=== PATIENT | male | born 1950 | race Caucasian/White ===

== ENCOUNTER → 2018-02-26 01:04 | Outpatient (CLI) | payer MEDICARE, OTHER, SELFPAY ==
--- NOTE | 2018-02-26 10:15 | MERGE_ITS ---
*[facility]* *[facility]* [address] [place] [address] Date of study: 02/26/2018 Transthoracic Echocardiography M-mode, complete 2D, complete spectral Doppler, and color Doppler *STUDY CONCLUSIONS* Summary: 1. Left ventricle: Wall thickness was increased in a pattern of moderate LVH. Systolic function was hyperdynamic. The estimated ejection fraction was 65-70%. Findings consistent with diastolic dysfunction. Doppler parameters are consistent with high ventricular filling pressure. 2. Mitral valve: Moderately to severely calcified annulus. Severely thickened, severely calcified leaflets posterior. There was moderate regurgitation. Cannot rule out AMVL ruptured chord. 3. Left atrium: The atrium was moderately dilated. 4. Right ventricle: The cavity size was normal. Wall thickness was normal. Systolic function was normal. 5. Atrial septum: No defect or patent foramen ovale was identified. 6. Pulmonary arteries: Pulmonary systolic pressure was in the range of 35mm Hg to 45mm Hg. 7. Inferior vena cava: Poorly visualized. *PATIENT PRESENTATION* Height: 180.3cm ((71in) ) S/D Pressure: 144 / 71 Weight: 122.5kg ((269.4lb) ) BSA: 2.52m^2 Test start time: 10:24 AM. Test stop time: 11:30 AM. PERFORMING Unknown ORDERING Parker Carmen REFERRING Parker Carmen PERFORMING [facility] PROSTHETICS LAB TECHNICIAN RT Echo Blevins)([place])TOD *PROCEDURE DATA* Procedure information: The patient was identified by two identifiers. This study was interpreted by [facility]. Pertinent images and digital data are archived for permanent storage and are available for subsequent review. Comparison was made to the study of 02/19/2017. Study status: Routine. Transthoracic echocardiography. M-mode, complete 2D, complete spectral Doppler, and color Doppler. A Transthoracic Echocardiogram was performed. Scanning was performed from the parasternal, apical, subcostal, and suprasternal notch acoustic windows. Images were obtained using an [id number] cardiac ultrasound machine. Image quality was adequate. Study completion: The patient tolerated the procedure well. History: PMH: Mitral regurg. 1 year follow up. *CARDIAC ANATOMY* Left ventricle: Wall thickness was increased in a pattern of moderate LVH. Systolic function was hyperdynamic. The estimated ejection fraction was 65-70%. The tissue Doppler parameters were abnormal. Findings consistent with diastolic dysfunction. Doppler parameters are consistent with high ventricular filling pressure. Aortic valve: Focal calcification non coronary cusp. Trileaflet. Doppler: There was no stenosis. There was no significant regurgitation. VTI ratio of LVOT to aortic valve: 0.72. Valve area (VTI): 3.2cm^2. Indexed valve area (VTI): 1.3cm^2/m^2. Peak velocity ratio of LVOT to aortic valve: 0.61. Valve area (Vmax): 2.7cm^2. Indexed valve area (Vmax): 1.1cm^2/m^2. Mean velocity ratio of LVOT to aortic valve: 0.55. Valve area (Vmean): 2.4cm^2. Indexed valve area (Vmean): 1cm^2/m^2. Mean gradient (S): 11.7mm Hg. Peak gradient (S): 25.5mm Hg. Aorta: Aortic root: The aortic root was at upper normal limits. Ascending aorta: The ascending aorta was mildly dilated. Mitral valve: Moderately to severely calcified annulus. Severely thickened, severely calcified leaflets posterior. Doppler: There was no evidence for stenosis. There was moderate regurgitation. Valve area by pressure half-time: 2.9cm^2. Indexed valve area by pressure half-time: 1.1cm^2/m^2. Peak gradient (D): 4.6mm Hg. Left atrium: The atrium was moderately dilated. Atrial septum: No defect or patent foramen ovale was identified. Right ventricle: The cavity size was normal. Wall thickness was normal. Systolic function was normal. Pulmonic valve: Doppler: There was no evidence for stenosis. There was mild regurgitation. Peak gradient (S): 6.2mm Hg. Tricuspid valve: Doppler: There was mild regurgitation. Pulmonary artery: Poorly visualized. Pulmonary systolic pressure was in the range of 35mm Hg to 45mm Hg. Right atrium: The atrium was normal in size. Pericardium: There was no pericardial effusion. Systemic veins: Inferior vena cava: Poorly visualized. Baseline ECG: Normal sinus rhythm. Measurements Left ventricle Value 09/10/2017 Reference LV ID, ED, PLAX 5.8 cm 6.0 3.5 - 6.0 LV ID, ES, PLAX 3.5 cm 3.4 2.1 - 4.0 LV PW thickness, ED, PLAX 1.3 cm 1.2 LV end-diastolic volume, 99 ml 83 1-p A2C LV ejection fraction, 1-p 72 % 70 A2C LV end-diastolic volume, 112 ml 123 1-p A4C LV ejection fraction, 1-p 67 % 74 A4C LV e', lateral 0.071 m/sec 0.04 LV E/e', lateral 15 20 LV e', medial 0.075 m/sec 0.053 LV E/e', medial 14 15 LV e', average 0.073 m/sec 0.046 LV E/e', average 15 17 Ventricular septum Value 09/10/2017 Reference IVS thickness, ED, PLAX 1.3 cm 1.4 LVOT Value 09/10/2017 Reference LVOT ID, A-P 2.4 cm 2.4 LVOT area 4.4 cm^2 4.5 LVOT peak velocity, S 1.53 m/sec 1.24 LVOT mean velocity, S 0.87 m/sec 0.89 LVOT VTI, S 32.8 cm 26.3 LVOT peak gradient, S 9.4 mm Hg 6.1 LVOT mean gradient, S 3.8 mm Hg 3.5 Stroke volume (SV), LVOT 144 ml 117 DP Stroke index (SV/bsa), 57 ml/m^2 47 LVOT DP Aortic valve Value 09/10/2017 Reference Aortic valve peak 2.5 m/sec 2.2 velocity, S Aortic valve mean 1.59 m/sec 1.4 velocity, S Aortic valve VTI, S 45.5 cm 36.4 Aortic mean gradient, S 11.7 mm Hg 9 Aortic peak gradient, S 25.5 mm Hg 19.7 VTI ratio, LVOT/AV 0.72 0.72 Aortic valve area, VTI 3.2 cm^2 3.2 Velocity ratio, peak, 0.61 0.56 LVOT/AV Aortic valve area, peak 2.7 cm^2 2.5 velocity Velocity ratio, mean, 0.55 0.63 LVOT/AV Aortic valve area, mean 2.4 cm^2 2.8 velocity Aortic valve area/bsa, 1 cm^2/m^2 1.1 mean velocity Aorta Value 09/10/2017 Reference Aortic root ID, ED 3.6 cm 3.6 Ascending aorta ID, A-P, S 3.7 cm 3.7 RVOT Value 09/10/2017 Reference RVOT VTI, S 17.5 cm Left atrium Value 09/10/2017 Reference LA area, ES, A4C (H) 36.7 cm^2 33.8 8.8 - 23.4 LA area, ES, A2C 31 cm^2 24 LA volume/bsa, ES, 1-p A4C 68 ml/m^2 62 LA volume, ES, 2-p 129 ml 105 LA volume/bsa, ES, 2-p 51 ml/m^2 42 Mitral valve Value 09/10/2017 Reference Mitral E-wave peak 1.08 m/sec 0.8 velocity Mitral A-wave peak 1.28 m/sec 1.25 velocity Mitral deceleration time (H) 262 ms 349 150 - 230 Mitral pressure half-time 76 ms 101 Mitral peak gradient, D 4.6 mm Hg 2.6 Mitral E/A ratio, peak 0.84 0.64 Mitral valve area, PHT, DP 2.9 cm^2 2.2 Tricuspid valve Value 09/10/2017 Reference Tricuspid regurg peak 3.1 m/sec 3.1 velocity Tricuspid peak RV-RA 38.9 mm Hg 38.8 gradient Right atrium Value 09/10/2017 Reference RA area, ES, A4C 16.9 cm^2 16.1 8.3 - 19.5 Pulmonic valve Value 09/10/2017 Reference Pulmonic peak gradient, S 6.2 mm Hg Legend: (L) and (H) althea values outside specified reference range. I have personally reviewed the images and have reviewed and edited the reported findings. Electronically signed by Lul Keith MD 02/26/2018 18:54
== END ==
PROVIDERS: PCP Emergency Medicine; Visit Provider Internal Medicine Cardiovascular Disease
DX: I34.0 Nonrheumatic mitral (valve) insufficiency (principal); I51.7 Cardiomegaly; I51.89 Other ill-defined heart diseases
CPT/HCPCS: 93306

== ENCOUNTER → 2018-03-05 13:09 | Outpatient (CLI) | payer MEDICARE, OTHER, SELFPAY | PROVIDERS: PCP Emergency Medicine; Visit Provider Internal Medicine Cardiovascular Disease | DX: I34.0 Nonrheumatic mitral (valve) insufficiency (principal); I10 Essential (primary) hypertension; I26.99 Other pulmonary embolism without acute cor pulmonale; I27.20 Pulmonary hypertension, unspecified | CPT/HCPCS: 99214 ==

== ENCOUNTER 2018-03-11 10:34 | Day surgery (SDC) | payer MEDICARE, OTHER, SELFPAY ==
[2018-03-11 11:06] VITALS: BP 138/83; PULSE 68; RESP 16; TEMP 36.6; O2SAT 96
[2018-03-11 11:13] VITALS: BP 138/83; PULSE 68; RESP 16; TEMP 36.6; O2SAT 96
[2018-03-11 11:15] VITALS: BP 138/83; PULSE 68; RESP 16; TEMP 36.6; O2SAT 96
[2018-03-11] MEDS: Lactated Ringers 1,000 ML 30 ML IV (11:25)
--- NOTE | 2018-03-11 13:25 | W.PM.DSUDISC ---
Discharge Plan Discharge Details Reason For Visit: PERSONAL HX OF COLORECTAL CA Attending Provider: Eitan Jin Primary Care Provider: Alexis Lo Disposition Patient Disposition: HOME Condition: Good Home Meds and New Rx's Prescriptions: Continue CENTRUM SILVER TABLET 1 EACH tablet 1 tab PO DAILY RF: 0 tadalafil [Cialis] 10 MG tablet 10 mg PO PRN Qty: 12 RF: 12 allopurinol 100 MG tablet 100 mg PO DAILY Qty: 90 RF: 3 losartan 100 MG tablet 100 mg PO DAILY Qty: 90 RF: 3 amlodipine 5 MG tablet 5 mg PO DAILY Qty: 90 RF: 4 apixaban [Eliquis] 5 MG tablet 5 mg PO BID Qty: 180 RF: 6 Discontinued polyethylene glycol 3350 [Miralax] 17 GM powder in packet 17 g PO DAILY Qty: 255 RF: 0 bisacodyl [Dulcolax (bisacodyl)] 5 MG tablet,delayed release (DR/EC) 5 mg PO ONCE Qty: 4 RF: 0 Discharge Instructions Instructions: Colonoscopy (DC) Activity:: Activity as Tolerated Diet:: Normal Diet Discharge Orders Discharge Orders: Discharge Order (Routine); Ordered 03/11/18 Ordered By: Eitan Jin Discharge Data Discharge Comment: Jolynn wang
[2018-03-11 13:57] VITALS: BP 113/71; PULSE 53; RESP 16; TEMP 36.3; O2SAT 95
--- NOTE | 2018-03-11 16:16 | W.COLOREPORT ---
Date of service: 03/11/18 Time of Service: 16:16 Colonoscopy Report Date of procedure: 03/11/18 Pre-op diagnosis general: Personal history of rectal cancer Post-op diagnosis procedure note: other (1. Pandiverticulosis 2. Grade II Hemorrhoids) Procedure: Colonoscopy to the cecum Surgeon: Eitan Jin Anesthesia proc note operative: MAC (Sony Villanueva CRNA, ASA 2, Mallampati class II) Estimated blood loss (mL): 0 Pathology: none sent Complications: None Disposition: same day Indications: 67-year-old gentleman presenting for colorectal cancer screening with a personal history of rectal cancer. He has been asymptomatic since his last colonoscopy. He has no family history of colorectal cancer. The procedure has been reviewed with him, and the risks have been discussed. All his questions have been answered to his satisfaction. Consents been obtained to proceed with colonoscopy Prep: Miralax/Dulcolax (Quality Good) Findings: In examining the colon from cecum to anus, the patient was again noted to have diverticulosis throughout the colon and grade 2 hemorrhoids. No other abnormalities were noted. Procedure Description: The patient was seen in the day surgery waiting area. His identification was confirmed, and procedure check. He was then brought to the procedure room. Monitoring for telemetry, blood pressure, oxygen saturation, and end tidal CO2 monitoring were applied. An appropriate time out was performed to confirm, identification, allergies, medication, procedure, was performed. Sedation was titrated for affect by the DEFENSE ANALYST; Once adequate sedation was achieved, I performed a inspection of the external perineum, and a digitial rectal examination. No significant external abnormalities were noted. On digital rectal examination, there was no blood, no masses, good rectal tone, and a normal prostate. I advanced the colonoscope from the anus to the cecum under direct visualization. The cecum was identified by the ileal-cecal valve, and the appendiceal orifice. The scope was then withdrawn in circumferential manner from the cecum to the rectum. Again pandiverticulosis was noted in the colon; no other abnormlaites were noted. The scope was then withdrawn into the rectum, and retroflexed. Grade II hemorrhoids were noted at the anorectal junction. The scope was then withdrawn, terminating the procedure. There were no complications during the procedure, and the patient tolerated the procedure well. He was returned to the day surgery recovery area in good condition. Plan: Will continue with routine screening for colorectal cancer according to current consensus guidelines, which is currently 3 years.
--- NOTE | 2018-03-11 16:27 | COLE_ITS ---
Date of service: 03/11/18 Time of Service: 16:16 Colonoscopy Report Date of procedure: 03/11/18 Pre-op diagnosis general: Personal history of rectal cancer Post-op diagnosis procedure note: other (1. Pandiverticulosis 2. Grade II Hemorrhoids) Procedure: Colonoscopy to the cecum Surgeon: Eitan Jin Anesthesia proc note operative: MAC (Sony Villanueva CRNA, ASA 2, Mallampati class II) Estimated blood loss (mL): 0 Pathology: none sent Complications: None Disposition: same day Indications: 67-year-old gentleman presenting for colorectal cancer screening with a personal history of rectal cancer. He has been asymptomatic since his last colonoscopy. He has no family history of colorectal cancer. The procedure has been reviewed with him, and the risks have been discussed. All his questions have been answered to his satisfaction. Consents been obtained to proceed with colonoscopy Prep: Miralax/Dulcolax (Quality Good) Findings: In examining the colon from cecum to anus, the patient was again noted to have diverticulosis throughout the colon and grade 2 hemorrhoids. No other abnormalities were noted. Procedure Description: The patient was seen in the day surgery waiting area. His identification was confirmed, and procedure check. He was then brought to the procedure room. Monitoring for telemetry, blood pressure, oxygen saturation , and end tidal CO2 monitoring were applied. An appropriate time out was performed to confirm, identification, allergies, medication, procedure, was performed. Sedation was titrated for affect by the CALCINE FURNACE TENDER; Once adequate sedation was achieved, I performed a inspection of the external perineum, and a digitial rectal examination. No significant external abnormalities were noted. On digital rectal examination, there was no blood, no masses, good rectal tone, and a normal prostate. I advanced the colonoscope from the anus to the cecum under direct visualization. The cecum was identified by the ileal-cecal valve, and the appendiceal orifice. The scope was then withdrawn in circumferential manner from the cecum to the rectum. Again pandiverticulosis was noted in the colon; no other abnormlaites were noted. The scope was then withdrawn into the rectum, and retroflexed. Grade II hemorrhoids were noted at the anorectal junction. The scope was then withdrawn, terminating the procedure. There were no complications during the procedure, and the patient tolerated the procedure well. He was returned to the day surgery recovery area in good condition. Plan: Will continue with routine screening for colorectal cancer according to current consensus guidelines, which is currently 3 years.
== END 2018-03-11 14:21 | disposition home or self-care (01) ==
PROVIDERS: PCP Emergency Medicine; Visit Provider Surgery
PROC: 0DJD8ZZ Inspection of Lower Intestinal Tract, Via Natural or Artificial Opening Endoscopic (ICD-10-PCS; CPT 45378; principal; 2018-03-11 12:00)
DX: Z12.11 Encounter for screening for malignant neoplasm of colon (principal); Z85.048 Personal history of other malignant neoplasm of rectum, rectosigmoid junction, and anus; K57.30 Diverticulosis of large intestine without perforation or abscess without bleeding; K64.1 Second degree hemorrhoids
CPT/HCPCS: G0105; G0121

== ENCOUNTER → 2018-03-11 11:36 | Outpatient (BNVA) | payer MEDICARE, OTHER, SELFPAY | PROVIDERS: PCP Emergency Medicine; Visit Provider Surgery | DX: Z12.11 Encounter for screening for malignant neoplasm of colon (principal); Z85.048 Personal history of other malignant neoplasm of rectum, rectosigmoid junction, and anus; K57.30 Diverticulosis of large intestine without perforation or abscess without bleeding; K64.1 Second degree hemorrhoids | CPT/HCPCS: G0105 ==

== ENCOUNTER 2018-04-14 09:00 | Outpatient (CLI) | payer MEDICARE, OTHER, SELFPAY ==
[2018-04-15 12:07] LABS: CEA <0.5 ng/ml
== END 2018-04-14 09:20 ==
PROVIDERS: PCP Emergency Medicine; Visit Provider Internal Medicine Hematology & Oncology
DX: C20 Malignant neoplasm of rectum (principal)
CPT/HCPCS: 36415; 82378

== ENCOUNTER 2018-09-16 00:22 | Outpatient (CLI) | payer MEDICARE, OTHER, SELFPAY ==
--- NOTE | 2018-09-16 10:20 | MERGE_ITS ---
*[facility]* *[facility]* [address] [place] [address] Date of study: 09/16/2018 Transthoracic Echocardiography M-mode, complete 2D, complete spectral Doppler, and color Doppler *STUDY CONCLUSIONS* Summary: 1. Left ventricle: The cavity size was normal. Wall thickness was increased in a pattern of mild LVH. Systolic function was normal. The estimated ejection fraction was 60-65%. Wall motion was normal; there were no regional wall motion abnormalities. 2. Mitral valve: Severely calcified annulus. Mild thickening, consistent with myxomatous proliferation. Prolapse, involving the posterior leaflet. There was moderate to severe regurgitation directed eccentrically. 3. Left atrium: The atrium was moderately dilated. 4. Right ventricle: The cavity size was normal. Wall thickness was normal. Systolic function was normal. 5. Pulmonary arteries: Pulmonary systolic pressure was increased, in the range of 35mm Hg to 40mm Hg. *PATIENT PRESENTATION* Height: 180.3cm ((71in) ) S/D Pressure: 136 / 77 Weight: 115.7kg ((254.5lb) ) BSA: 2.45m^2 Test start time: 10:30 AM. Test stop time: 11:45 AM. CONSULTING Alexis Lo PERFORMING Unknown ORDERING Parker Carmen REFERRING Parker Carmen PERFORMING [facility] ORACLE DATABASE ADMINISTRATOR RT Gen (R)([place])TOD *PROCEDURE DATA* Procedure information: The patient was identified by two identifiers. This study was interpreted by [facility]. Pertinent images and digital data are archived for permanent storage and are available for subsequent review. Comparison was made to the study of 02/26/2018. Study status: Routine. Transthoracic echocardiography. M-mode, complete 2D, complete spectral Doppler, and color Doppler. A Transthoracic Echocardiogram was performed. Scanning was performed from the parasternal, apical, subcostal, and suprasternal notch acoustic windows. Images were obtained using an [id number] cardiac ultrasound machine. Study completion: The patient tolerated the procedure well. There were no complications. 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 Wall thickness was increased in a pattern of mild LVH. Systolic function was normal. The estimated ejection fraction was 60-65%. Wall motion was normal; there were no regional wall motion abnormalities. Findings consistent with diastolic dysfunction. Aortic valve: Trileaflet; mildly thickened, mildly calcified leaflets. Mobility was not restricted. Doppler: Transvalvular velocity was within the normal range. There was no stenosis. There was no significant regurgitation. VTI ratio of LVOT to aortic valve: 0.65. Valve area (VTI): 2.8cm^2. Indexed valve area (VTI): 1.2cm^2/m^2. Peak velocity ratio of LVOT to aortic valve: 0.51. Valve area (Vmax): 2.2cm^2. Indexed valve area (Vmax): 0.9cm^2/m^2. Mean velocity ratio of LVOT to aortic valve: 0.58. Valve area (Vmean): 2.5cm^2. Indexed valve area (Vmean): 1cm^2/m^2. Mean gradient (S): 8.2mm Hg. Peak gradient (S): 21.6mm Hg. Aorta: Aortic root: The aortic root was at upper normal limits. Ascending aorta: The ascending aorta was mildly dilated. Mitral valve: Severely calcified annulus. Mild thickening, consistent with myxomatous proliferation. Mobility was not restricted. Prolapse, involving the posterior leaflet. Doppler: Transvalvular velocity was within the normal range. There was no evidence for stenosis. There was moderate to severe regurgitation directed eccentrically. Valve area by pressure half-time: 3.1cm^2. Indexed valve area by pressure half-time: 1.3cm^2/m^2. Peak gradient (D): 4mm Hg. Left atrium: The atrium was moderately dilated. Right ventricle: The cavity size was normal. Wall thickness was normal. Systolic function was normal. Pulmonic valve: Structurally normal valve. Doppler: Transvalvular velocity was within the normal range. There was no evidence for stenosis. There was mild regurgitation. Peak gradient (S): 5.7mm Hg. Tricuspid valve: Structurally normal valve. Doppler: Transvalvular velocity was within the normal range. There was no evidence for stenosis. There was mild regurgitation. Pulmonary artery: Pulmonary systolic pressure was increased, in the range of 35mm Hg to 40mm Hg. Right atrium: The atrium was normal in size. Pericardium: There was no pericardial effusion. Systemic veins: Inferior vena cava: Not well visualized. The vessel was patent and normal in size. The respirophasic diameter changes were in the normal range (greater than or equal to 50%). Baseline ECG: Sinus bradycardia. Measurements Left ventricle Value 02/26/2018 Reference LV ID, ED, PLAX 5.6 cm 5.8 3.5 - 6.0 LV ID, ES, PLAX 3.6 cm 3.5 2.1 - 4.0 LV PW thickness, ED, PLAX 1.3 cm 1.3 LV end-diastolic volume, 135 ml 99 1-p A2C LV ejection fraction, 1-p 60 % 72 A2C LV end-diastolic volume, 133 ml 112 1-p A4C LV ejection fraction, 1-p 58 % 67 A4C LV e', lateral 0.068 m/sec 0.071 LV E/e', lateral 15 15 LV e', medial 0.077 m/sec 0.075 LV E/e', medial 13 14 LV e', average 0.073 m/sec 0.073 LV E/e', average 14 15 Ventricular septum Value 02/26/2018 Reference IVS thickness, ED, PLAX 1.2 cm 1.3 LVOT Value 02/26/2018 Reference LVOT ID, A-P 2.4 cm 2.4 LVOT area 4.3 cm^2 4.4 LVOT peak velocity, S 1.18 m/sec 1.53 LVOT mean velocity, S 0.78 m/sec 0.87 LVOT VTI, S 26.8 cm 32.8 LVOT peak gradient, S 5.6 mm Hg 9.4 LVOT mean gradient, S 2.9 mm Hg 3.8 Stroke volume (SV), LVOT 116 ml 144 DP Stroke index (SV/bsa), 47 ml/m^2 57 LVOT DP Aortic valve Value 02/26/2018 Reference Aortic valve peak 2.3 m/sec 2.5 velocity, S Aortic valve mean 1.34 m/sec 1.59 velocity, S Aortic valve VTI, S 41.0 cm 45.5 Aortic mean gradient, S 8.2 mm Hg 11.7 Aortic peak gradient, S 21.6 mm Hg 25.5 VTI ratio, LVOT/AV 0.65 0.72 Aortic valve area, VTI 2.8 cm^2 3.2 Velocity ratio, peak, 0.51 0.61 LVOT/AV Aortic valve area, peak 2.2 cm^2 2.7 velocity Velocity ratio, mean, 0.58 0.55 LVOT/AV Aortic valve area, mean 2.5 cm^2 2.4 velocity Aortic valve area/bsa, 1 cm^2/m^2 1 mean velocity Aorta Value 02/26/2018 Reference Aortic root ID, ED 3.7 cm 3.6 Ascending aorta ID, A-P, S 3.7 cm 3.7 Left atrium Value 02/26/2018 Reference LA area, ES, A4C (H) 35 cm^2 36.7 8.8 - 23.4 LA area, ES, A2C 28 cm^2 31 LA volume/bsa, ES, 1-p A4C 69 ml/m^2 68 LA volume, ES, 2-p 120 ml 129 LA volume/bsa, ES, 2-p 49 ml/m^2 51 Mitral valve Value 02/26/2018 Reference Mitral E-wave peak 0.99 m/sec 1.08 velocity Mitral A-wave peak 1.32 m/sec 1.28 velocity Mitral deceleration time (H) 243 ms 262 150 - 230 Mitral pressure half-time 71 ms 76 Mitral peak gradient, D 4 mm Hg 4.6 Mitral E/A ratio, peak 0.75 0.84 Mitral valve area, PHT, DP 3.1 cm^2 2.9 Tricuspid valve Value 02/26/2018 Reference Tricuspid regurg peak 2.9 m/sec 3.1 velocity Tricuspid peak RV-RA 33.3 mm Hg 38.9 gradient Right atrium Value 02/26/2018 Reference RA area, ES, A4C 18.5 cm^2 16.9 8.3 - 19.5 Pulmonic valve Value 02/26/2018 Reference Pulmonic peak gradient, S 5.7 mm Hg 6.2 Legend: (L) and (H) althea values outside specified reference range. I have personally reviewed the images and have reviewed and edited the reported findings. Electronically signed by Cole Dubose 09/16/2018 12:39
== END 2018-09-16 00:42 ==
PROVIDERS: PCP Emergency Medicine; Visit Provider Internal Medicine Cardiovascular Disease
DX: I34.0 Nonrheumatic mitral (valve) insufficiency (principal); I10 Essential (primary) hypertension; I51.7 Cardiomegaly
CPT/HCPCS: 93306

== ENCOUNTER → 2018-10-08 11:54 | Outpatient (BNVA) | payer MEDICARE, OTHER, SELFPAY | PROVIDERS: PCP Emergency Medicine; Visit Provider Internal Medicine Cardiovascular Disease | DX: I34.0 Nonrheumatic mitral (valve) insufficiency (principal); I10 Essential (primary) hypertension; Z79.01 Long term (current) use of anticoagulants | CPT/HCPCS: 99214 ==

== ENCOUNTER 2018-12-04 10:43 | Outpatient (CLI) | payer MEDICARE, OTHER, SELFPAY ==
[2018-12-04 14:42] LABS: Anion Gap 9.8 mmol/L (3-11); BUN 31 mg/dL (7-18); CO2 26.2 mmol/L (21.0-32.0); CREATININE 1.48 mg/dL (0.70-1.30); Chloride 101 mmol/L (98-107); Estimated GFR 47.41 (mL/min/1.73m2); Glucose 105 mg/dL (70-100); Potassium 5.1 mmol/L (3.5-5.1); Sodium 137 mmol/L (136-145); Uric Acid 8.2 mg/dL (3.5-7.2)
[2018-12-07 10:00] LABS: PSA, Diagnostic <0.1 ng/ml (0-4.5)
== END 2018-12-04 11:03 ==
PROVIDERS: PCP Emergency Medicine; Visit Provider Emergency Medicine
DX: I10 Essential (primary) hypertension (principal); C61 Malignant neoplasm of prostate; M10.9 Gout, unspecified
CPT/HCPCS: 36415; 80048; 84153; 84550

== ENCOUNTER 2019-01-11 00:07 | Outpatient (CLI) | payer MEDICARE, OTHER, SELFPAY ==
--- NOTE | 2019-01-11 06:49 | DI.US_ITS ---
SYMPTOM/DIAGNOSIS: CAROTID ARTERY DISEASE I-65.29 BILATERAL DUPLEX CAROTID ULTRASOUND: 01/11 Duplex evaluation of the carotid circulation was performed according to the usual protocol. There is minimal visible atheromatous plaque in the carotid bulbs and bifurcations bilaterally. Flow velocities are within normal limits in common internal and external carotid arteries bilaterally. There is bilateral antegrade vertebral flow. CONCLUSION: No evidence of a hemodynamically significant carotid stenosis.
--- NOTE | 2019-01-11 06:49 | MERGEMPI_ITS ---
*[facility]* *[facility]* [address] [place] [address] Myocardial Perfusion Imaging - SPECT Laci protocol Date of study: 01/11/2019 (Report amended ) *PATIENT PRESENTATION* Height: 180.3cm (71in) Blood Pressure: Weight: 115.9kg (255lb) BSA: 2.45m^2 Referring physician: Lul Keith MD Ordering physician: Alexis Lo Impressions: - Normal perfusion by Tc99m Sestamibi Imaging. - Considerable ventricular ectopy at rest and with stress. Consider monitor, beta joesph, cardiology follow up. Summary: 1. Myocardial perfusion imaging: No myocardial perfusion defects noted. 2. The calculated left ventricular ejection fraction after stress: 50%. No left ventricular regional motion abnormality. Indication: R07.9. History: REASON FOR TESTING: INCREASED SOB WITH SLIGHT ABNORMAL FEELING- NOT PAIN, NOT PRESSURE, THAT SEEMS TO BE ASSOCIATED WITH EATING, BUT NOT RECENTLY. PMH:PROSTATECA, SKIN CA, COLON CA. 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 PNEUMIONIA, VARICOES VEINS, DVT WITH PULMONARY EMBOLI, MITRAL REGURGITATION WITH MURMUR, MELANOM OF SCALP, HYPERLIPIDEMIA, GOUT, ESSENTIAL HYPERTENSION, DIVERTICULLITIS, GRAM POSITIVE BACTEREMIA. FAMILY HX: MOPTHER- HYPERTENSION. SMOKING:NEVER SMOKER EXCERCISE: NO REGULAR EXCERCISE, BUT DOES CUTS GRASS WITH HAND MOWER, DOES WOOD. Risk factors: Family history of coronary artery disease. Hypertension. Obesity. Dyslipidemia. Cholesterol: 192mg/dl. HDL: 39mg/dl. LDL: 120mg/dl. Triglycerides: 235mg/dl. ALLERGIES: NKDA. MEDICATIONS: LOSARTAN 100 MG DAILY, APIXABAN 5 MG BID, AMLODIPINE 5 MG DAILY, ALLOPURINOL 300 MG DAILY, ASPIRIN 81 MG DAILY, CENTRUM SILVER 1 DAILY. Imaging Technique: Protocol: Laci protocol. Acquisition: Gated SPECT; 1 day - rest/stress. The patient was imaged in the supine position. Attenuation correction used. Isotope administration: - Rest. Tc[99m]-sestamibi. Dose: 12.3mCi. Injection time: 09:00 AM. Injection to stress time: 00:45. - Stress. Tc[99m]-sestamibi. Dose: 36mCi. Injection time: 11:00 AM. 1-2 min before end of exercise Baseline ECG: LAST EKG 05/12/2012- SINUS RHYTHM, NONSPECIFIC T ABNORMLALITY. HR 60. TODAY'S EKG-SINUS RHYTHM WITH APC'S AND PVC'S. HR 58. Stress protocol: + +---+ + !Stage !HR !BP (mmHg) ! + +---+ + !Baseline supine !58 !142/90 (107) ! + +---+ + !Baseline standing !59 !150/100 (117)! + +---+ + !Stage I; 1.7mph, 10degrees; 3 min !97 !148/76 (100) ! + +---+ + !Stage II; 2.5mph, 12degrees; 3 min!135!168/84 (112) ! + +---+ + !Recovery; 1 min !129!180/70 (107) ! + +---+ + !Recovery; 3 min !73 !182/90 (121) ! + +---+ + !Recovery; 6 min !70 !170/90 (117) ! + +---+ + !Recovery; 9 min !71 !160/90 (113) ! + +---+ + * Stress results: The rate-pressure product for the peak heart rate and blood pressure was 90321uu Hg/min. Stress ECG: EXCERCISE TESTING ENDED IN 6 MINS, 20 SECS DUE TO FATIGUE. MAX HR WAS 136, 88% OF TARGET. HYPERTENSIVE BLOOD PRESSURE RESPONSE. METS: 7.05 ECTOPY: PVC'S AND PAC'S NOTED AT BASELINE, INCREASING IN AMOUNT IN STAGE 2. BIGEMINY OF PVC'S NOTED, WITH 4 BVT AT 4:16 OF TESTING. THIS WAS ASYMPTOMATIC. DR. KEITH NOTIFIED OF THIS FINDING AFTER TESING COMPLETE. ANGINA: NO REPORTED CHEST PAIN OR PRESSURE. ISCHEMIA: NO ISCHEMIC CHANGES NOTED. FUNCTIONAL CAPACITY: MILDLY DIMINISHED CAPACITY. Myocardial perfusion: Imaging information: gated. No myocardial perfusion defects noted. Ventricular Function (Wall Motion): The calculated left ventricular ejection fraction after stress: 50%. No left ventricular regional motion abnormality. Study data: Lul Keith MD supervised and was readily available during the procedure. This study was interpreted by [facility]. Study status: Routine. Consent: The risks, benefits, and alternatives to the procedure were explained to the patient and informed consent was obtained. Procedure: Initial setup. A baseline ECG was recorded. Surface ECG leads and manual cuff blood pressure measurements were monitored. Heart sounds: Normal. Lung sounds: Normal. Treadmill exercise testing was performed using the Laci protocol. Study completion: All catheters inserted during the procedure were removed. The patient tolerated the procedure well and was discharged from the lab. Discharge: The patient left the laboratory in stable condition. Birthdate: Patient birthdate: 1950. Sex: Gender: male. Study date: Study date: 01/11/2019. Study time: 00:01 AM. Electronically signed by Lul Keith MD 01/11/2019 17:05
== END 2019-01-11 00:27 ==
PROVIDERS: PCP Emergency Medicine; Visit Provider Emergency Medicine
DX: I77.9 Disorder of arteries and arterioles, unspecified (principal); R07.9 Chest pain, unspecified; I65.23 Occlusion and stenosis of bilateral carotid arteries; R06.02 Shortness of breath; R01.1 Cardiac murmur, unspecified; I10 Essential (primary) hypertension; I34.0 Nonrheumatic mitral (valve) insufficiency
CPT/HCPCS: 78452; 93016; 93018; 93017; 93880

== ENCOUNTER 2019-01-13 01:57 | Outpatient (CLI) | payer MEDICARE, OTHER, SELFPAY ==
--- NOTE | 2019-02-15 11:37 | CER_ITS ---
DATE OF DICTATION: February 15, 2019 [employer] MONITOR SUMMARY 1. Monitor in place: January 13 - February 11, 2019 2. Baseline rhythm sinus. 3. No atrial fibrillation identified. 4. Ventricular ectopy: < 1% total beat. Five bursts of non-sustained VT detected, as described obi abrams. 5. Nocturnal heart rates as low as 54 bpm, sinus bradycardia. No significant pauses. 6. Detected events: six, one during sinus rhythm, the remainder during sinus rhythm with V-tach 4-7 beat duration. 7. Review of V-tach episodes suggest these occur throughout the day, no nocturnal VT identified. VT is polymorphic. At least three morphologies appreciated. 8. Fifteen manually-detected events. Chest pain/pressure noted during sinus rhythm on several. All episodes occurring with sinus rhythm +/- PAC, PVC.
== END 2019-01-13 02:17 ==
PROVIDERS: PCP Emergency Medicine; Visit Provider Internal Medicine Interventional Cardiology
DX: I47.2 Ventricular tachycardia (principal); R00.1 Bradycardia, unspecified
CPT/HCPCS: 93270

== ENCOUNTER 2019-02-15 09:10 | Outpatient (CLI) | payer MEDICARE, OTHER, SELFPAY | END 2019-02-15 09:30 | PROVIDERS: PCP Emergency Medicine; Referring Provider Emergency Medicine; Visit Provider Internal Medicine Interventional Cardiology | DX: I47.2 Ventricular tachycardia (principal); R00.1 Bradycardia, unspecified | CPT/HCPCS: 93228 ==

== ENCOUNTER → 2019-02-18 10:11 | Outpatient (BNVA) | payer MEDICARE, OTHER, SELFPAY | PROVIDERS: PCP Emergency Medicine; Visit Provider Internal Medicine Cardiovascular Disease | DX: I34.0 Nonrheumatic mitral (valve) insufficiency (principal); I10 Essential (primary) hypertension; I47.2 Ventricular tachycardia | CPT/HCPCS: 99214 ==

== ENCOUNTER 2019-04-05 15:41 | Emergency (ER) | payer MEDICARE, OTHER, SELFPAY ==
[2019-04-05 15:56] VITALS: BP 128/74; PULSE 65; RESP 16; TEMP 36.7; O2SAT 96
--- NOTE | 2019-04-05 16:00 | DI.RAD_ITS ---
EXAM: XR CHEST 2V PA LATERAL CLINICAL HISTORY: cough, right sided chest pain s/p fall. TECHNIQUE: 2D digital imaging was performed. COMPARISON: CHEST 2 VIEWS PA,LAT from 08/13/2016 FINDINGS: LUNGS: Clear. Pleural effusion or pneumothorax is identified. HEART: The heart is mildly enlarged but stable. MEDIASTINUM: The pulmonary vasculature is unremarkable. Bones: Appropriate degenerative changes are present. IMPRESSION: No acute pulmonary findings.
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
--- NOTE | 2019-04-05 17:04 | DI.VRAD_ITS ---
PROCEDURE INFORMATION: Exam: XR Chest, 2 Views Exam date and time: 04/05/2019 4:39 PM Clinical history: 68 years old, male; Right-sided chest pain; Patient HX: Fell two days ago, developed painful cough today TECHNIQUE: Imaging protocol: XR of the chest Views: 2 views. COMPARISON: CR CHEST 2 VIEWS PA,LAT 08/13/2016 9:52 AM FINDINGS: Lungs: Unremarkable. No consolidation. Pleural space: Unremarkable. No pleural effusion. No pneumothorax. Heart/Mediastinum: The heart is mildly enlarged. Vasculature: Tortuous and mildly calcified aorta. Bones/joints: No acutely displaced fractures are appreciated. IMPRESSION: No acute findings to explain the patient's symptoms. Dictated and Authenticated by: Bandar Terry MD. Ordering:SHIN Mccarty MD
== END 2019-04-05 17:23 | disposition home or self-care (01) ==
PROVIDERS: Emergency Provider Emergency Medicine; PCP Emergency Medicine
DX: S20.211A Contusion of right front wall of thorax, initial encounter (principal); R05 Cough; I26.99 Other pulmonary embolism without acute cor pulmonale; Z79.01 Long term (current) use of anticoagulants; W01.0XXA Fall on same level from slipping, tripping and stumbling without subsequent striking against object, initial encounter
CPT/HCPCS: 99283; 71046

== ENCOUNTER 2019-10-25 06:31 | Inpatient (IN) | payer MEDICARE, OTHER, SELFPAY ==
[2019-10-25] VITALS (48 sets, daily range): BP systolic 126–191; BP diastolic 53–90; PULSE 76–104; RESP 20–34; TEMP 36.1–38.1; O2SAT 92–100
--- NOTE | 2019-10-25 06:02 | W.ED.GENAD ---
Discharge Plan Disposition Patient Disposition: [facility] INPATIENT Condition: Stable Discharge Details Chief Complaint: RespSymp Clinical Impression: Sepsis, Altered mental status, Fever, Acute dehydration Primary Care Provider: Alexis Lo ED Provider: Charles Blas Home Meds and New Rx's Prescriptions: No Action metoprolol succinate 25 mg tablet extended release 24 hr 25 mg PO DAILY 90 Days Qty: 90 RF: 2 colchicine 0.6 mg capsule 0.6 mg PO BID Qty: 30 RF: 0 Eliquis 5 mg tablet 5 mg PO BID Qty: 180 RF: 6 losartan 100 mg tablet 100 mg PO DAILY Qty: 90 RF: 3 amlodipine 5 mg tablet 5 mg PO DAILY Qty: 90 RF: 4 allopurinol 300 mg tablet 300 mg PO DAILY Qty: 90 RF: 4 cimetidine 200 mg tablet 200 mg PO BID Qty: 180 RF: 4 Medical Decision Making This is a 69-year-old male with a past medical history of prostate cancer, rectal cancer, previous pulmonary embolism on Eliquis, high cholesterol, hypertension, gout, who presents today for altered mental status. Patient has been self isolating for the last few weeks out of concern for COVID, however per family at 1:30 in the morning the noticed that he was having some Reiger's, checked his temperature and was mildly febrile at 101, he was given Tylenol at this time. Mental status was normal. He did complain of a very mild headache though. Later in the morning 530 to 6 AM the noted that the patient was notably altered and when EMS was called upon their arrival patient continued to be altered, febrile at 102 and was brought in for further evaluation. Currently the patient is altered and has no complaints is not able to add anything more to history. GCS is 11, no clinical evidence of meningismus. No rash. Lung sounds are diminished, but no nandini rhonchi. Abdomen is nontender, exam is limited but he does not appear to show any focal neurologic deficits in regards to movement, he appears to be moving all extremities well. He does not respond verbally though. NIH stroke score is 10, however with the patient's fever, and other symptoms I feel this is more likely to be metabolic encephalopathic rather than stroke. Patient is not a candidate for TPA secondary to his Eliquis use. Last known well at best seems to be 1:30 AM, however would assume that last night prior to going to bed was his true last known well. Differential is broad at this time, physical exam seems to point away from meningitis, with his fever, sepsis is likely cause of his current symptomatology, source unknown, pulmonary and urine potential. We will get a CT scan of the patient's head, get lung imaging. We will gently rehydrate. Due to his fever and altered mental status we will start broad-spectrum antibiotics. Patient is a full code. Currently he is maintaining his airway well, no indication for intubation. No significant hypoxemia. 7:47 AM Patient's laboratory work-up is returned, patient has mild white count of 13.5, notable left shift, no bands at this point. pH stable, PCO2 normal. Electrolytes normal, renal function at patient's baseline. Lactate notably elevated at 3.4. Ammonia less than 10. Troponin normal. TSH normal. Urinalysis shows notable ketones, no evidence of infection. Symptoms inconsistent with DKA. CT scan has returned, patient was notably noncompliant with remaining still during procedure. Radiology/Dr. Sheth reports no evidence of significant intracranial abnormality noted, chest CT shows some mild atelectasis but no large focal consolidation. Imaging is certainly limited secondary to noncompliance. With infectious source unknown, I do feel that flu and COVID are still definitely on the differential. He may have mild pneumonia that we cannot appreciate with the affected imaging quality. Meningitis is still on the differential as well, but the patient is not a candidate secondary to his Eliquis use for a lumbar puncture. We will contact the hospitalist for admission. 7:57 AM Discussed the case with Dr. Roe, he agrees with the assessment and plan. I will place admission orders on his behalf at this time. Patient will be sent to the [facility] for further testing and management. Of note the patient's Kristi would like to be contacted, I have called her and updated her on the current case. Her phone number is [phone] EKG 7: 46 Rate 95, intervals normal, sinus rhythm, no significant ST elevations or depressions, no evidence of STEMI. HPI General Date/Time Provider Initiated Documentation: 10/25/19 06:42. HPI Narrative: This is a 69-year-old male with a past medical history of prostate cancer, rectal cancer, previous pulmonary embolism on Eliquis, high cholesterol, hypertension, gout, who presents today for altered mental status. Patient has been self isolating for the last few weeks out of concern for COVID, however per family at 1:30 in the morning the noticed that he was having some Reiger's, checked his temperature and was mildly febrile at 101, he was given Tylenol at this time. Mental status was normal. He did complain of a very mild headache though. Later in the morning 530 to 6 AM the noted that the patient was notably altered and when EMS was called upon their arrival patient continued to be altered, febrile at 102 and was brought in for further evaluation. Currently the patient is altered and has no complaints is not able to add anything more to history. Related Data Home Medications Medication Instructions Recorded Confirmed apixaban 5 mg tablet 5 mg PO BID #180 tab 09/04/18 10/11/19 metoprolol succinate 25 mg 25 mg PO DAILY 90 Days #90 tab 02/18/19 10/11/19 tablet,extended release 24 hr losartan 100 mg tablet 100 mg PO DAILY #90 tab-cap NS 05/12/19 10/11/19 amlodipine 5 mg tablet 5 mg PO DAILY #90 tab-cap 09/21/19 10/11/19 colchicine 0.6 mg capsule 0.6 mg PO BID #30 cap 10/11/19 10/11/19 allopurinol 300 mg tablet 300 mg PO DAILY #90 tab 10/12/19 cimetidine 200 mg tablet 200 mg PO BID #180 tab 10/12/19 Previous Rx's Medication Instructions Recorded apixaban 5 mg tablet 5 mg PO BID #180 tab 09/04/18 metoprolol succinate 25 mg 25 mg PO DAILY 90 Days #90 tab 02/18/19 tablet,extended release 24 hr losartan 100 mg tablet 100 mg PO DAILY #90 tab-cap NS 05/12/19 amlodipine 5 mg tablet 5 mg PO DAILY #90 tab-cap 09/21/19 colchicine 0.6 mg capsule 0.6 mg PO BID #30 cap 10/11/19 allopurinol 300 mg tablet 300 mg PO DAILY #90 tab 10/12/19 cimetidine 200 mg tablet 200 mg PO BID #180 tab 10/12/19 Allergies Allergy/AdvReac Type Severity Reaction Status Date / Time No Known Allergies Allergy Verified 10/25/19 07:00 General VALERY: 3 Review of Systems All systems reviewed & are unremarkable except as noted in HPI and below PFSH Medical History GERD (gastroesophageal reflux disease) (Chronic) Gout HTN (hypertension) Hyperlipidemia Malignant melanoma October 2015, anil tse, central parietal scalp Prostate cancer diagnosed 2002, s/p prostatectomy Pulmonary embolism September 2017. Treated with Eliquis. Rectal cancer 04/14/12 - transanal excision, chemotherapy, radiation, no evidence of metastatic disease, colonoscopy 10/31/15 showed only diverticulosis and hemorrhoids with f/u recommended in 2 years. 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 No abnormalities found with this colonoscopy, Dr Jin recommends repeat in 3 yrs. Prostatectomy Skin Cancer Removal (~06/2015) DR. CRONIN Transanal excision rectal cancer Family History Mother , age 78 Essential hypertension Cancer Father , age 80 Alzheimer's disease Sister No problems noted. Sister No problems noted. Brother Cancer Hypertension Son No problems noted. Son No problems noted. Son No problems noted. Daughter No problems noted. Maternal Grandfather Cancer Social History Smoking/Tobacco Use Status: Never Second Hand Exposure: Yes Alcohol Intake: current Alcohol Intake frequency: a few times a week Alcohol type: beer, wine and hard liquor Drug use: Rarely Substance use type: marijuana Caregiver/Support person: No Household members: spouse Housing: house Communication Needs: None Do you need help understanding health information?: Never Pets and animals: Yes Pets and animals: dog(s) Sexually active: No Do you think of yourself as: straight/heterosexual Current gender identity: male What is your relationship status?: How often do you talk on the phone with friends or family?: three or more times per week How often do you get together with friends or relatives?: once per week How often do you attend spiritism or zoroastrian services?: 1-3 times per year Do you belong to any clubs or organized social groups?: no Panel score (0-1 are the most socially isolated patients): 2 What type of physical activity do you participate in: decline to answer Duration: decline to answer Frequency: decline to answer Kyara/Faith: Roman Catholic Special kyara needs: No Seatbelt use: always Drive intox or ride w/intox local city driver: No Do you feel safe in your relationship?: Yes Exam Narrative Exam Narrative: 1.Const: Well-nourished, Well-developed, appearing stated age 2.Eyes: PERRL, no conjunctival injection, and symmetrical lids. 3.ENT: Atraumatic external nose and ears. Moist MM. Neck: Symmetric, trachea midline, No thyromegaly. No nuchal rigidity or evidence of meningismus. Negative Kernig's and Brudzinski sign. 4.CVS: +S1/S2, Peripheral pulses 2+ and equal in all extremities. Brisk capillary refill in all extremities. 5.RESP: Unlabored respiratory effort. Diminished breath sounds throughout. No wheezes rales or rhonchi 6.GI: Soft, Nontender/Nondistended, No hepatosplenomegaly. No guarding or rebound. 7.MSK: Normocephalic/Atraumatic, Extremities w/o deformity or ttp No cyanosis or clubbing, Normal movement of all extremities. No evidence of significant trauma. 8.Skin: Warm, Dry. No rashes or lesions. Negative Nikolsky sign. No large vesicles or bulla. No palpable purpura. No oral lesions. No mucosal lesions. No evidence of severe cellulitis. No evidence of vaccine preventable rash. 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 GCS is 11, patient unable to follow commands, however it does appear to be moving all extremities well without focal deficit. 10.Psych: GCS of 11 Sign Out Sign Out Data: Sign Out Comment: Fever at home and per EMS. Suspect infectious etiology. Source unknown. Pending imaging and labs. Please call patient's Kristi at [phone] once disposition is made Last updated by Charles Blas DO at 10/25/19 07:33
--- NOTE | 2019-10-25 06:30 | DI.CT_ITS ---
EXAM: CT HEAD WO CLINICAL HISTORY: altered, r/o stroke TECHNIQUE: COMPARISON: No exams were available for comparison FINDINGS: Noncontrast cranial CT was performed. There is marked motion artifact and the skull base is not incl uded on the images with portions of posterior fossa not seen. Grossly unremarkable appearance of the orbits. Mastoid air cells and paranasal sinuses as visualized appear clear. No gross intracranial hemorrhage, mass effect, or midline shift. IMPRESSION: Poor technical quality scan, no gross intracranial hemorrhage.
--- NOTE | 2019-10-25 06:30 | DI.CT_ITS ---
EXAM: CT CHEST WO CLINICAL HISTORY: altered, febrile, r/o GG opacities COMPARISON: CHEST ABD PELVIS WITH CONTRAST from 05/01/2012 FINDINGS: CT examination of chest was performed without contrast administration. There is marked motion artifa ct. Images obtained through the upper abdomen show grossly unremarkable appearance of visualized por tions of liver, spleen, pancreas, adrenals, and kidneys. Lungs are poorly visualized, probable mild bilateral dependent atelectasis. No gross pleural effusio n or pneumothorax. There is cardiac enlargement. No gross mediastinal mass or hematoma. Tracheobro nchial tree grossly unremarkable. IMPRESSION: Very limited scan. No gross acute abnormality. Cardiomegaly noted.
[2019-10-25 07:08] LABS: Lactate 3.4 mmol/L (0.6-1.4)
[2019-10-25 07:09] LABS: HCO3 (Venous) 21 mmol/L (22-28); O2 Sat (Venous) 95 % (70-80); TCO2 (Venous) 19 mmol/L (22-29); pCO2 (Venous) 33 mm/Hg (34-47); pO2 (Venous) 72 mm/Hg (28-44)
[2019-10-25 07:13] LABS: Bilirubin Negative (Negative); Blood Trace-intact (Negative); Clarity Clear (Clear); Glucose 100 mg/dL (Negative); Ketones 40 mg/dL (Negative); Leukocyte Esterase Negative (Negative); Nitrite Negative (Negative); Specific Gravity 1.025 (1.005-1.025); Urobilinogen 0.2 EU/dL (Up TO 0.2); pH 5.5 (5-8)
[2019-10-25 07:21] LABS: Ammonia < 10 umol/L (11-32)
[2019-10-25 07:23] LABS: Abs Immature Grans 0.03 k/cumm (0.0-0.09); Absolute Basophil Count 0.01 k/cumm (0.0-0.2); Absolute Lymphocyte Count 0.76 k/cumm (1.2-3.4); Absolute Monocyte Count 1.11 k/cumm (0.11-0.7); Basophils % 0.1; HCT 36.1 % (40.0-50.0); HGB 12.4 g/dL (13.5-17.5); Immature Grans % 0.2 %; Lymphocytes % 5.6; Mean Corp. HGB Concentration 34.3 g/dL (32.0-36.0); Mean Corpuscular Hemoglobin 31.7 pg (27.0-33.0); Mean Corpuscular Volume 92.3 fL (80-95); Mean Platelet Volume 9.8 fL (8.0-11.0); Monocytes % 8.2; Neutrophils % 85.9; Platelet Count 252 x1000/uL (130-400); RBC 3.91 m/cumm (4.50-6.00)
[2019-10-25] MEDS: LORazepam 2 MG/ML VIAL IVP ×2 (07:30→07:35)
[2019-10-25 07:31] LABS: ALT 55 U/L (16-63); AST 26 U/L (15-37); Alkaline Phosphatase 61 U/L (46-116); Anion Gap 11.8 mmol/L (3-11); BUN 22 mg/dL (7-18); CO2 23.2 mmol/L (21.0-32.0); CREATININE 1.51 mg/dL (0.70-1.30); Calcium 8.9 mg/dL (8.5-10.1); Chloride 103 mmol/L (98-107); Estimated GFR 46.18 (mL/min/1.73m2); Glucose 224 mg/dL (74-106); Potassium 3.7 mmol/L (3.5-5.1); Sodium 138 mmol/L (136-145); TSH (W/Ref FT4) 2.35 uIU/mL (0.36-3.74); Total Protein 7.3 g/dL (6.4-8.2); Troponin I < 0.05 ng/Ml (<0.06)
[2019-10-25 07:32] LABS: RBC 0-2 HPF (0-2); WBC 0-2 HPF (0-5)
[2019-10-25 07:33] LABS: Bacteria Negative HPF (Negative); C & S Indicated? C&S Done As Ordered; Casts Negative LPF (Negative); Crystals Negative HPF (Negative); Epithelial Cells Negative HPF (Negative); Mucus Negative (Negative); Other Cells Rare Renal (Negative)
[2019-10-25 07:35] LABS: INR 1.1 (0.9-1.1); PTT Activated 24.5 sec (21.0-31.4); Prothrombin Time 11.1 sec (9.3-11.0)
[2019-10-25 07:41] LABS: ETHANOL BLOOD < 3.0 mg/dL (<3)
[2019-10-25] MEDS: AZITHROMYCIN 500 MG in Normal Saline 250 ML 250 MG IVPB (08:03)
[2019-10-25] MEDS: PIPERACILLIN/TAZO 4.5 GM in Normal Saline 100 ML IVPB ×2 (08:11→17:24)
[2019-10-25] MEDS: VANCOMYCIN 2,000 MG in Normal Saline 500 ML 333.3333 MG IVPB (08:33)
[2019-10-25] MEDS: Normal Saline 1,000 ML 1000 ML IV (08:34)
[2019-10-25] MEDS: LORazepam 2 MG/ML VIAL 1 MG IVP ×2 (08:55→10:16)
[2019-10-25] MEDS: ACETAMINOPHEN 1,000 MG/100 ML BTL 400 MG IVPB (11:38)
--- NOTE | 2019-10-25 14:57 | W.PM.HP.N ---
Date of service: 10/25/19 Time of Service: 14:57 Assessment and Plan Assessment and plan (1) Sepsis: Status: Acute Assessment and plan: Presumed sepsis syndrome given his fever prior to coming in. He has been afebrile since arrival. He has an elevated white count, elevated lactate level. Head CT showed no abnormality. He is not a candidate for lumbar puncture because of ongoing anticoagulation with a apixaban. Empiric treatment with broad-spectrum antibiotics, Zosyn, vancomycin, azithromycin. Blood cultures are pending. (2) Altered mental status: Status: Acute Assessment and plan: He appears to be encephalopathic with unknown etiology. It seems likely there is a bacterial pathogen given the elevated lactate, elevated white count, left shift. A pulmonary source is not proven by the chest CT scan or his overall oxygenation. 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 Ammonia level is normal. He does have an alcohol use history but has abstained for alcohol for 3 weeks per his . (3) Sleep apnea: Status: Acute Assessment and plan: He was diagnosed obstructive sleep apnea in 2014. He reportedly has a home CPAP device. We will have respiratory therapy attend that and get him back on his home settings. (4) Other pulmonary embolism without acute cor pulmonale: Status: Acute Assessment and plan: History of PE on apixaban. We will continue this. There is no evidence that he had another PE. (5) Non-rheumatic mitral regurgitation: Status: Acute Assessment and plan: History of mitral valve disease with murmur. This could be a source of his altered mental status and infection. The murmur does not appear significant at this point. He does not appear to be in failure. Will monitor the blood cultures. Echocardiogram if indicated. (6) Gout: Status: Acute Assessment and plan: History of recurrent gout. He is not symptomatic at this point. Hold the allopurinol for now given his sepsis syndrome. History of Present Illness History of Present Illness Chief Complaint: Altered mental status/fever/headache Narrative: This is a 69-year-old man who was fine 1 day prior to admission, he was working outside most of the day. He went to bed at a usual time. Per his he awakened at 1:30 AM with rigors and temperature of 100.0. He complained of a mild headache at that time. His notes that about 4:30 AM he awakened with a fever of 102.0, O2 sat of 89%, blood sugar 200. At that time his states that he was confused and unable to answer questions. She alerted EMS via 911 and he was brought to the emergency room. In the emergency room his overall physical exam was normal, Glascow coma scale was 11 because of inability to speak or follow commands. He had no nuchal rigidity. A head CT was somewhat limited by motion artifact but showed no evidence of a bleed or other abnormality. A chest CT similarly had motion artifact, showed some atelectasis but no infiltrate. He was empirically started on vancomycin and Zosyn and azithromycin for a presumed bacterial process. He is admitted to the respiratory intensive care unit. He is being ruled out for COVID-19. His gives additional history that he had a bout of gout about a week ago involving his first toe. He was prescribed colchicine which he took for 4 days. He maintains on allopurinol. He has not had any recent head trauma. He had no prodromal illness. Review of Systems Narrative: On review of systems the patient was not able to provide any specific answers. He was moving around in the bed primarily pulling at tubes and lines. He was not following commands. He did not appear to have any pain or discomfort to palpation of his abdomen or other locations. Review of systems was limited by his mental status. [facility] Medical History GERD (gastroesophageal reflux disease) (Chronic) Gout HTN (hypertension) Hyperlipidemia Malignant melanoma October 2015, ma carmencita, central parietal scalp Prostate cancer diagnosed 2002, s/p prostatectomy Pulmonary embolism September 2017. Treated with Eliquis. Rectal cancer 04/14/12 - transanal excision, chemotherapy, radiation, no evidence of metastatic disease, colonoscopy 10/31/15 showed only diverticulosis and hemorrhoids with f/u recommended in 2 years. 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 No abnormalities found with this colonoscopy, Dr Jin recommends repeat in 3 yrs. Prostatectomy Skin Cancer Removal (~06/2015) DR. CRONIN Transanal excision rectal cancer Family History Mother , age 78 Essential hypertension Cancer Father , age 80 Alzheimer's disease Sister No problems noted. Sister No problems noted. Brother Cancer Hypertension Son No problems noted. Son No problems noted. Son No problems noted. Daughter No problems noted. Maternal Grandfather Cancer Social History Smoking/Tobacco Use Status: Never Second Hand Exposure: Yes Alcohol Intake: current Alcohol Intake frequency: a few times a week Alcohol type: beer, wine and hard liquor Drug use: Rarely Substance use type: marijuana Caregiver/Support person: No Household members: spouse Housing: house Communication Needs: None Do you need help understanding health information?: Never Pets and animals: Yes Pets and animals: dog(s) Sexually active: No Do you think of yourself as: straight/heterosexual Current gender identity: male What is your relationship status?: How often do you talk on the phone with friends or family?: three or more times per week How often do you get together with friends or relatives?: once per week How often do you attend episcopal or orthodoxy services?: 1-3 times per year Do you belong to any clubs or organized social groups?: no Panel score (0-1 are the most socially isolated patients): 2 What type of physical activity do you participate in: decline to answer Duration: decline to answer Frequency: decline to answer Kyara/Restorationist: Protestant Special kyara needs: No Seatbelt use: always Drive intox or ride w/intox residential recycle driver: No Do you feel safe in your relationship?: Yes Meds Home Medications and Allergies Home Medications Medication Instructions Recorded Confirmed Type apixaban 5 mg tablet 5 mg PO BID #180 tab 09/04/18 10/25/19 Rx metoprolol succinate 25 mg 25 mg PO DAILY 90 Days #90 tab 02/18/19 10/25/19 Rx tablet,extended release 24 hr losartan 100 mg tablet 100 mg PO DAILY #90 tab-cap NS 05/12/19 10/25/19 Rx amlodipine 5 mg tablet 5 mg PO DAILY #90 tab-cap 09/21/19 10/25/19 Rx colchicine 0.6 mg capsule 0.6 mg PO BID #30 cap 10/11/19 10/25/19 Rx allopurinol 300 mg tablet 300 mg PO DAILY #90 tab 10/12/19 10/25/19 Rx cimetidine 200 mg tablet 200 mg PO BID #180 tab 10/12/19 10/25/19 Rx Allergies Allergy/AdvReac Type Severity Reaction Status Date / Time No Known Allergies Allergy Verified 10/25/19 07:00 Exam Narrative Exam Narrative: On exam his overall mental status was altered as noted above. He was unable to follow commands or answer questions. He was nonverbal during my portion of the exam. He had no respiratory difficulty. His breathing was nonlabored. His lung exam was clear on the right and left. His heart exam notable for a 1/6 blowing systolic murmur. The rhythm was regular. His abdomen is quite markedly obese but overall soft and nontender to palpation. No HSM was detected. He had no evidence of hernia or mass. The lower extremities showed symmetrical musculature no lower extremity edema. Overall perfusion was good. Normal external genitalia with Santos catheter in place draining clear urine. Neurologically he is moving upper and lower extremities with uniform movements without any apparent decrement of function. His mental status is notable for and inability to follow commands. His eyes are open though he is not making eye contact. He was nonverbal. Results Labs Result diagrams: 10/25/19 07:00 10/25/19 07:00 Labs: Laboratory Results - last 24 hr 10/25/19 10/25/19 10/25/19 07:00 07:00 07:00 WBC RBC Hgb Hct MCV MCH MCHC RDW Plt Count MPV Immature Gran % Neutrophils % Lymphocytes % Monocytes % Eosinophils % Basophils % Absolute Neutrophils Absolute Lymphocytes Absolute Monocytes Absolute Eosinophils Absolute Basophils PT INR APTT VBG pH VBG pCO2 VBG pO2 VBG HCO3 VBG Total CO2 VBG O2 Saturation VBG Base Excess Sodium 138 Potassium 3.7 Chloride 103 Carbon Dioxide 23.2 Anion Gap 11.8 H BUN 22 H Creatinine 1.51 H Estimated GFR/1.73 m2 46.18 Glucose 224 H Lactate 3.4 H* Calcium 8.9 Total Bilirubin 1.0 AST 26 ALT 55 Alkaline Phosphatase 61 Ammonia < 10 L Troponin I < 0.05 Total Protein 7.3 Albumin 4.0 TSH 2.35 Urine Color Urine Clarity Urine pH Ur Specific Randolph Urine Protein Urine Ketones Urine Blood Urine Nitrite Urine Bilirubin Urine Urobilinogen Ur Leukocyte Esterase Urine RBC Urine WBC Ur Epithelial Cells Urine Crystals Urine Bacteria Urine Casts Urine Mucus Urine Other Ur Culture Indicated? Urine Glucose Ethyl Alcohol < 3.0 10/25/19 10/25/19 10/25/19 07:00 07:00 07:00 WBC 13.50 H RBC 3.91 L Hgb 12.4 L Hct 36.1 L MCV 92.3 MCH 31.7 MCHC 34.3 RDW 13.0 Plt Count 252 MPV 9.8 Immature Gran % 0.2 Neutrophils % 85.9 Lymphocytes % 5.6 Monocytes % 8.2 Eosinophils % 0.0 Basophils % 0.1 Absolute Neutrophils 11.60 H Absolute Lymphocytes 0.76 L Absolute Monocytes 1.11 H Absolute Eosinophils 0.00 Absolute Basophils 0.01 PT 11.1 H INR 1.1 APTT 24.5 VBG pH 7.40 VBG pCO2 33 L VBG pO2 72 H VBG HCO3 21 L VBG Total CO2 19 L VBG O2 Saturation 95 H VBG Base Excess -4.0 L Sodium Potassium Chloride Carbon Dioxide Anion Gap BUN Creatinine Estimated GFR/1.73 m2 Glucose Lactate Calcium Total Bilirubin AST ALT Alkaline Phosphatase Ammonia Troponin I Total Protein Albumin TSH Urine Color Urine Clarity Urine pH Ur Specific Randolph Urine Protein Urine Ketones Urine Blood Urine Nitrite Urine Bilirubin Urine Urobilinogen Ur Leukocyte Esterase Urine RBC Urine WBC Ur Epithelial Cells Urine Crystals Urine Bacteria Urine Casts Urine Mucus Urine Other Ur Culture Indicated? Urine Glucose Ethyl Alcohol 10/25/19 07:05 WBC RBC Hgb Hct MCV MCH MCHC RDW Plt Count MPV Immature Gran % Neutrophils % Lymphocytes % Monocytes % Eosinophils % Basophils % Absolute Neutrophils Absolute Lymphocytes Absolute Monocytes Absolute Eosinophils Absolute Basophils PT INR APTT VBG pH VBG pCO2 VBG pO2 VBG HCO3 VBG Total CO2 VBG O2 Saturation VBG Base Excess Sodium Potassium Chloride Carbon Dioxide Anion Gap BUN Creatinine Estimated GFR/1.73 m2 Glucose Lactate Calcium Total Bilirubin AST ALT Alkaline Phosphatase Ammonia Troponin I Total Protein Albumin TSH Urine Color Yellow Urine Clarity Clear Urine pH 5.5 Ur Specific Randolph 1.025 Urine Protein 30 H Urine Ketones 40 H Urine Blood Trace-intact H Urine Nitrite Negative Urine Bilirubin Negative Urine Urobilinogen 0.2 Ur Leukocyte Esterase Negative Urine RBC 0-2 Urine WBC 0-2 Ur Epithelial Cells Negative Urine Crystals Negative Urine Bacteria Negative Urine Casts Negative Urine Mucus Negative Urine Other Rare renal Ur Culture Indicated? C&s done as ordered Urine Glucose 100 Ethyl Alcohol Last Vital Signs Temp 36.3 C L 10/25/19 12:30 Pulse 76 10/25/19 14:46 Resp 23 10/25/19 14:46 BP 131/78 10/25/19 14:46 Pulse Ox 97 10/25/19 14:46 COVID-19 Screening Traveled to [place] from one of the affected countries or regions?: NO Recent travel in the [place] within the last 8 weeks?: No Recent out of the country travel within the last 8 weeks?: No Exposure or possible exposure to illness during travel?: No Had IN PERSON contact w/suspected or confirmed C-19 person: No Have you had the following symptoms in the past few days?: No Symptoms noted since travel?: Fever
[2019-10-25] MEDS: Insulin Aspart 300 UNITS/3 ML PEN SC (17:24)
[2019-10-25 17:32] LABS: BE -2.2 mmol/L (-3-3); HCO3 22 mmol/L (22-28); pCO2 32 mmHg (34-47); pH 7.45 (7.35-7.45); pO2 69 mmHg (83-108); sO2 95 % (94-98); tCO2 20 mmol/L (22-29)
[2019-10-25 17:34] LABS: Site Left Radial
[2019-10-25 17:35] LABS: FIO2L 2 L
[2019-10-25 18:34] LABS: COVID-19 RT-PCR Result Negative (Negative)
[2019-10-25] MEDS: Acetaminophen 325 MG TAB PO (21:47)
[2019-10-25] MEDS: Nicotine 14 MG/24 HR PATCH TD ×2 (21:47→22:52)
[2019-10-25] MEDS: VANCOMYCIN 1,000 MG in Normal Saline 250 ML IVPB (22:10)
[2019-10-26] VITALS (23 sets, daily range): BP systolic 138–189; BP diastolic 72–95; PULSE 64–92; RESP 16–20; TEMP 36.7–37.6; O2SAT 91–98
[2019-10-26] MEDS: PIPERACILLIN/TAZO 4.5 GM in Normal Saline 100 ML IVPB ×4 (01:27→20:17)
[2019-10-26] MEDS: Acetaminophen 325 MG TAB PO ×3 (03:31→20:17)
--- NOTE | 2019-10-26 07:00 | HOME_ITS ---
Home Ventilator Equipment Home care company [facility] Reason: Obstructive Sleep Apnea Make: Respironics Model: System One Mask type: Face mask Mask size: Large Mode: CPAP Settings: Auto-titrate min 13/ max 20 Oxygen bleed in (lpm): Condition: Good Date last checked: 10/26/19 Year of last sleep study: Compliance Sporadically Comments: Machine is on RA and patient stated he thinks DME is [facility]
[2019-10-26 07:13] LABS: Abs Immature Grans 0.03 k/cumm (0.0-0.09); Absolute Lymphocyte Count 0.57 k/cumm (1.2-3.4); Eosinophils % 0.1; HCT 33.2 % (40.0-50.0); HGB 11.5 g/dL (13.5-17.5); Immature Grans % 0.2 %; Lymphocytes % 3.8; Mean Corp. HGB Concentration 34.6 g/dL (32.0-36.0); Mean Corpuscular Hemoglobin 31.6 pg (27.0-33.0); Mean Corpuscular Volume 91.2 fL (80-95); Mean Platelet Volume 9.2 fL (8.0-11.0); Monocytes % 6.2; Neutrophils % 89.7; Platelet Count 235 x1000/uL (130-400); RBC 3.64 m/cumm (4.50-6.00); RBC Distribution Width 13.1 % (11.8-14.1); White Blood Cell Count 15.11 k/cumm (4.4-10.8)
[2019-10-26 07:15] LABS: Absolute Eosinophil Count 0.02 k/cumm (0.0-0.7); Absolute Monocyte Count 0.94 k/cumm (0.11-0.7); Absolute Neutrophil Count 13.55 k/cumm (1.2-6.7)
[2019-10-26 07:27] LABS: ALT 45 U/L (16-63); AST 23 U/L (15-37); Albumin 3.4 g/dL (3.4-5.0); Alkaline Phosphatase 54 U/L (46-116); Anion Gap 8.7 mmol/L (3-11); BUN 17 mg/dL (7-18); Bilirubin, Total 1.2 mg/dL (0.2-1.0); CO2 24.3 mmol/L (21.0-32.0); CREATININE 1.06 mg/dL (0.70-1.30); Calcium 8.7 mg/dL (8.5-10.1); Chloride 99 mmol/L (98-107); Glucose 152 mg/dL (74-106); Potassium 3.8 mmol/L (3.5-5.1); Sodium 132 mmol/L (136-145); Total Protein 6.8 g/dL (6.4-8.2)
[2019-10-26 07:46] LABS: Hemoglobin A1C 6.4 % (3.8-5.6)
[2019-10-26 08:15] LABS: Procalcitonin 2.6 ng/mL
[2019-10-26] MEDS: Metoprolol CR 25 MG TABCR PO (08:21)
[2019-10-26] MEDS: Pantoprazole 40 MG TABCR PO (08:21)
[2019-10-26] MEDS: Losartan 50 MG TAB 100 MG PO (08:21)
[2019-10-26] MEDS: Normal Saline Flush 10 ML SYR IVP ×4 (08:22→20:18)
[2019-10-26] MEDS: Insulin Aspart 300 UNITS/3 ML PEN SC ×2 (08:22→12:00)
--- NOTE | 2019-10-26 09:52 | INITIAL_ITS ---
- If Service Date Differs Date of service: 10/26/19 Time of Service: 09:52 Care Management Initial Assess REASON FOR HOSPITALIZATION:: Sepsis PAST MEDICAL HISTORY/PAST SURGICAL HISTORY:: Medical History . GERD (gastroesophageal reflux disease) (Chronic). Gout. HTN (hypertension). Hyperlipidemia. Malignant melanoma. October 2015, ma carmencita, central parietal scalp. Prostate cancer. diagnosed 2002, s/p prostatectomy. Pulmonary embolism. September 2017. Treated with Eliquis. Rectal cancer. 04/14/12 - transanal excision, chemotherapy, radiation, no evidence of metastatic disease, colonoscopy 10/31/15 showed only diverticulosis and hemorrhoids with f/u recommended in 2 years. Skin cancer, basal cell. forehead, removed. Squamous cell skin cancer. right pre-auricular cheek, 08/2016. Surgical History . Colonoscopy - MAC (04/14/12). Colonoscopy - MAC (10/31/15). H/O colonoscopy (Chronic 03/10/18). Dr Jin, patient with personal history of rectal cancer. No abnormalities found with this colonoscopy, Dr Jin recommends repeat in 3 yrs. Prostatectomy. Skin Cancer Removal (~06/2015). DR. CRONIN. Transanal excision rectal cancer PREVIOUS FUNCTIONAL STATUS/SOCIAL/FAMILY SUPPORTS:: Ankur lives with his Kristi in [place], [place] on [address]. He has dual citizenship with [place] and the [place]. Ankur is currently retired but worked for over 30 years at [employer] in both [facility] and [place]. He and Kristi have several children. Ankur is independent at baseline and remains active. CURRENT FUNCTIONAL STATUS:: Ankur was sitting up in bed when met with him. He was polite but he had a headache and was asking for pain medicine. After CM had a short conversation with Ankur, nursing staff needed to interrupt and take Ankur to MRI. He was sleeping when CM revisited him later. ADVANCE DIRECTIVES:: On file. [facility] - [facility] Roque Has patient been provided with information about the portal?: No Did the patient sign up for the portal?: No CODE STATUS:: Full Code INSURANCE COVERAGE / FINANCIAL ISSUES:: Medicare. [employer] CURRENT HOME/COMMUNITY SERVICES/EQUIPMENT:: none PRIMARY CARE PHYSICIAN:: Alexis Lo MD POTENTIAL DISCHARGE NEEDS:: Follow up with PCP and discharge plan of care PATIENT/FAMILY EDUCATION NEEDS:: Discharge plan, limitations, follow up plan, Ask Me Three TRANSPORTATION:: via private vehicle with family PLAN:: Ankur will likely be discharged home with no new services. He will follow up with his PCP and discharge plan of care. CM will continue to support Ankur, his family and assess for discharge planning needs.
[2019-10-26] MEDS: VANCOMYCIN 1,000 MG in Normal Saline 250 ML IVPB (12:01)
--- NOTE | 2019-10-26 13:30 | W.PM.PROGNOT ---
Date of Service Date of service: 10/26/19 Time of Service: 13:30 Assessment and Plan Assessment and plan (1) Sepsis: Status: Acute Assessment and plan: From the standpoint of symptoms, blood pressure, pulse rate, lactate, all improved. Still has elevated white count. Blood culture growing gram-positive cocci and aerobic and anaerobic bottles, source yet to be identified and speciation yet to be done. Pending further identification I am continuing his broad-spectrum antibiotic coverage with Pip/tazobactam, azithromycin and vancomycin. (2) Altered mental status: Status: Acute Assessment and plan: Mentation seems to be getting back to baseline. Still has a headache which is atypical for him. I suspect that his altered mental status is reflection of a sepsis syndrome and not a primary INSPECT[employer]EDGING event. Nevertheless, there is concern for possible infectious encephalopathy. Less likely ischemic event. Much less likely neoplastic event. MRI of the brain ordered but yet to be performed. Continue on IV acyclovir. Eliquis on hold in case we need to do LP. (3) Fever: Status: Acute Assessment and plan: Temperature has normalized. Antibiotics continue as above. Await results of culture ID and sensitivity. Antipyretics as needed. (4) Sleep apnea: Status: Acute Assessment and plan: Tolerating CPAP, no changes planned. Does not have elevated bicarb to suggest chronic CO2 retention. (5) Gram-positive bacteremia: Status: Acute Assessment and plan: Source unclear. Await ID and sensitivity. Continue broad-spectrum antibiotics pending results. (6) Mitral insufficiency: Status: Chronic Assessment and plan: May or may not be playing a role in his bacteremia. May need to have echocardiogram performed this admission rather than this coming summer as planned for monitoring of his known mitral insufficiency. (7) Gout: Status: Acute Assessment and plan: No recent flares. Allopurinol and colchicine on hold to minimize risk of drug interactions. (8) Essential hypertension: Status: Acute Assessment and plan: Blood pressure acceptable, amlodipine remains on hold. Continues on losartan and metoprolol. (9) Hyperglycemia: Status: Acute Assessment and plan: Hemoglobin A1c in the prediabetes range. Sliding scale short acting insulin. (10) Headache: Status: Acute Assessment and plan: Cause remains to be identified. Were not for the fact that he had a headache before his presentation I would be highly suspicious for drug side effect. CT scan did not show evidence of acute bleed although suboptimal study. MRI of the brain ordered. Symptom treatment with acetaminophen. Subjective Subjective Interval history since last seen: Has been afebrile. Blood pressure 130s to 160s. Sinus rhythm with PACs and a few PVCs on telemetry. Does not feel confused now. Complains of bitemporal headache. States he rarely gets headaches. About a week before presentation had occipital headache that seem to go away. No trauma. Has had no recent travel. Does not know of any insect bites. He recalls that he was confused just before coming to the hospital but only because his has told him. He does not have a clear memory of those events. Denies focal numbness tingling or weakness now. No nausea. No double vision. Head is not more painful with movement. No photophobia. Motion artifact noncontrast head CT did not show bleed. He has been on broad-spectrum antibiotics and acyclovir. Blood culture both aerobic and anaerobic growing gram-positive cocci. Exam Narrative Exam Narrative: Sleeping with CPAP unit on, he is easily aroused and following that is awake and alert knows he is in the hospital and why. No fever, blood pressure 138/72. Blood sugar in the mid 100 range. No facial asymmetry. Pupils equal and reactive. Extraocular movements normal and no exacerbation of headache in doing so. Active and passive motion of the neck does not worsen his headache and he has no nuchal rigidity. No cervical adenopathy. Lungs clear. Regular heart rhythm with low pitched 2/6 systolic murmur at the left lower sternal border, no diastolic murmur heard. Active bowel sounds with no abdominal tenderness. Strong pulses distally. No petechiae. No rash on the extremities. He has symmetric movement of all extremities and 2+ DTRs at the knees and elbows. Sits up unassisted. Objective Objective Clinical Data: Abnormal lab results 10/25/19 10/26/19 10/26/19 Range/Units 17:27 07:00 07:00 WBC (4.4-10.8) k/cumm RBC (4.50-6.00) m/cumm Hgb (13.5-17.5) g/dL Hct (40.0-50.0) % Absolute Neutrophils (1.2-6.7) k/cumm Absolute Lymphocytes (1.2-3.4) k/cumm Absolute Monocytes (0.11-0.7) k/cumm ABG pCO2 32 L (34-47) mmHg ABG pO2 69 L (83-108) mmHg ABG Total CO2 20 L (22-29) mmol/L Sodium 132 L (136-145) mmol/L Glucose 152 H (74-106) mg/dL Hemoglobin A1c 6.4 H (3.8-5.6) % Total Bilirubin 1.2 H (0.2-1.0) mg/dL 10/26/19 Range/Units 07:00 WBC 15.11 H (4.4-10.8) k/cumm RBC 3.64 L (4.50-6.00) m/cumm Hgb 11.5 L (13.5-17.5) g/dL Hct 33.2 L (40.0-50.0) % Absolute Neutrophils 13.55 H (1.2-6.7) k/cumm Absolute Lymphocytes 0.57 L (1.2-3.4) k/cumm Absolute Monocytes 0.94 H (0.11-0.7) k/cumm ABG pCO2 (34-47) mmHg ABG pO2 (83-108) mmHg ABG Total CO2 (22-29) mmol/L Sodium (136-145) mmol/L Glucose (74-106) mg/dL Hemoglobin A1c (3.8-5.6) % Total Bilirubin (0.2-1.0) mg/dL Vital Signs Temperature 37.1 C 10/26/19 08:18 Temperature Source Temporal Artery Scan 10/26/19 08:18 Pulse 77 10/26/19 08:18 Pulse Rhythm Regular 10/26/19 01:24 Pulse 88 10/25/19 10:10 Respiratory Rate 20 10/26/19 03:48 Respiratory Effort Non-Labored 10/26/19 01:24 Respiratory Depth Normal 10/26/19 01:24 Respiratory Pattern Normal 10/26/19 01:24 Blood Pressure 138/72 10/26/19 08:18 Blood Pressure Mean 95 10/25/19 10:01 Pulse Oximetry 96 10/26/19 09:28 Respiratory End-tidal CO2 24 10/25/19 10:10 Oxygen Delivery Method Room Air 10/26/19 09:26 Oxygen Flow Rate 0 10/26/19 09:26 Fraction of Inspired Oxygen (FIO2) 21 10/26/19 09:28 Pain Level 2 10/25/19 19:30 Intake & Output 10/25/19 10/26/19 10/26/19 23:59 11:59 23:59 Intake Total 1750 / 2700 350 / 350 Output Total 1322024 200 / 200 Balance 425 / 675 150 / 150 Weight 122.47 kg 120.3 kg Intake: IV 1600 / 2550 350 / 350 Oral 150 / 150 Output: Urine 1322024 200 / 200 Other: Urine Color Dark Maggie Dark Maggie Urine Appearance Clear Clear Urine Odor Normal Normal Stool Size Large Moderate Stool Characteristics Soft Formed Formed Voiding Methods Urinal Urinal Laboratory Results WBC 15.11 k/cumm (4.4-10.8) H 10/26/19 07:00 RBC 3.64 m/cumm (4.50-6.00) L 10/26/19 07:00 Hgb 11.5 g/dL (13.5-17.5) L 10/26/19 07:00 Hct 33.2 % (40.0-50.0) L 10/26/19 07:00 MCV 91.2 fL (80-95) 10/26/19 07:00 MCH 31.6 pg (27.0-33.0) 10/26/19 07:00 MCHC 34.6 g/dL (32.0-36.0) 10/26/19 07:00 RDW 13.1 % (11.8-14.1) 10/26/19 07:00 Plt Count 235 x1000/uL (130-400) 10/26/19 07:00 MPV 9.2 fL (8.0-11.0) 10/26/19 07:00 Immature Gran % 0.2 % 10/26/19 07:00 Neutrophils % 89.7 10/26/19 07:00 Lymphocytes % 3.8 10/26/19 07:00 Monocytes % 6.2 10/26/19 07:00 Eosinophils % 0.1 10/26/19 07:00 Basophils % 0.0 10/26/19 07:00 Absolute Neutrophils 13.55 k/cumm (1.2-6.7) H 10/26/19 07:00 Absolute Lymphocytes 0.57 k/cumm (1.2-3.4) L 10/26/19 07:00 Absolute Monocytes 0.94 k/cumm (0.11-0.7) H 10/26/19 07:00 Absolute Eosinophils 0.02 k/cumm (0.0-0.7) 10/26/19 07:00 Absolute Basophils 0.00 k/cumm (0.0-0.2) 10/26/19 07:00 PT 11.1 sec (9.3-11.0) H 10/25/19 07:00 INR 1.1 (0.9-1.1) 10/25/19 07:00 APTT 24.5 sec (21.0-31.4) 10/25/19 07:00 ABG Sample Site Left radial 10/25/19 17:27 ABG pH 7.45 (7.35-7.45) 10/25/19 17:27 ABG pCO2 32 mmHg (34-47) L 10/25/19 17:27 ABG pO2 69 mmHg (83-108) L 10/25/19 17:27 ABG HCO3 22 mmol/L (22-28) 10/25/19 17:27 ABG Total CO2 20 mmol/L (22-29) L 10/25/19 17:27 ABG O2 Saturation 95 % (94-98) 10/25/19 17:27 ABG Base Excess -2.2 mmol/L (-3-3) 10/25/19 17:27 VBG pH 7.40 (7.35-7.45) 10/25/19 07:00 VBG pCO2 33 mm/Hg (34-47) L 10/25/19 07:00 VBG pO2 72 mm/Hg (28-44) H 10/25/19 07:00 VBG HCO3 21 mmol/L (22-28) L 10/25/19 07:00 VBG Total CO2 19 mmol/L (22-29) L 10/25/19 07:00 VBG O2 Saturation 95 % (70-80) H 10/25/19 07:00 VBG Base Excess -4.0 mmol/L (-3-3) L 10/25/19 07:00 Oxygen Liter Flow 2 L 10/25/19 17:27 Sodium 132 mmol/L (136-145) L 10/26/19 07:00 Potassium 3.8 mmol/L (3.5-5.1) 10/26/19 07:00 Chloride 99 mmol/L (98-107) 10/26/19 07:00 Carbon Dioxide 24.3 mmol/L (21.0-32.0) 10/26/19 07:00 Anion Gap 8.7 mmol/L (3-11) 10/26/19 07:00 BUN 17 mg/dL (7-18) 10/26/19 07:00 Creatinine 1.06 mg/dL (0.70-1.30) 10/26/19 07:00 Estimated GFR/1.73 m2 >= 60.00 (mL/min/1.73m2) 10/26/19 07:00 Glucose 152 mg/dL (74-106) H 10/26/19 07:00 Hemoglobin A1c 6.4 % (3.8-5.6) H 10/26/19 07:00 Lactate 1.0 mmol/L (0.6-1.4) 10/26/19 07:00 Calcium 8.7 mg/dL (8.5-10.1) 10/26/19 07:00 Total Bilirubin 1.2 mg/dL (0.2-1.0) H 10/26/19 07:00 AST 23 U/L (15-37) 10/26/19 07:00 ALT 45 U/L (16-63) 10/26/19 07:00 Alkaline Phosphatase 54 U/L (46-116) 10/26/19 07:00 Ammonia < 10 umol/L (11-32) L 10/25/19 07:00 Troponin I < 0.05 ng/Ml (<0.06) 10/25/19 07:00 Total Protein 6.8 g/dL (6.4-8.2) 10/26/19 07:00 Albumin 3.4 g/dL (3.4-5.0) 10/26/19 07:00 Procalcitonin 2.6 ng/mL 10/26/19 07:00 TSH 2.35 uIU/mL (0.36-3.74) 10/25/19 07:00 Urine Color Yellow (Yellow) 10/25/19 07:05 Urine Clarity Clear (Clear) 04/20/20 07:05 Urine pH 5.5 (5-8) 10/25/19 07:05 Ur Specific [place] 1.025 (1.005-1.025) 10/25/19 07:05 Urine Protein 30 mg/dL (Negative) H 10/25/19 07:05 Urine Ketones 40 mg/dL (Negative) H 10/25/19 07:05 Urine Blood Trace-intact (Negative) H 10/25/19 07:05 Urine Nitrite Negative (Negative) 10/25/19 07:05 Urine Bilirubin Negative (Negative) 10/25/19 07:05 Urine Urobilinogen 0.2 EU/dL (Up TO 0.2) 10/25/19 07:05 Ur Leukocyte Esterase Negative (Negative) 10/25/19 07:05 Urine RBC 0-2 HPF (0-2) 10/25/19 07:05 Urine WBC 0-2 HPF (0-5) 10/25/19 07:05 Ur Epithelial Cells Negative HPF (Negative) 10/25/19 07:05 Urine Crystals Negative HPF (Negative) 10/25/19 07:05 Urine Bacteria Negative HPF (Negative) 10/25/19 07:05 Urine Casts Negative LPF (Negative) 10/25/19 07:05 Urine Mucus Negative (Negative) 10/25/19 07:05 Urine Other Rare renal (Negative) 10/25/19 07:05 Ur Culture Indicated? C&s done as ordered 10/25/19 07:05 Urine Glucose 100 mg/dL (Negative) 10/25/19 07:05 Ethyl Alcohol < 3.0 mg/dL (<3) 10/25/19 07:00 Coronavirus (PCR) Negative (Negative) 10/25/19 12:30
--- NOTE | 2019-10-26 14:18 | DM INPTCON_ITS ---
Date of service: 10/26/19 Time of Service: 14:18 Diabetes Inpatient Consult DESCRIPTION/ASSESSMENT: 69 year old male admitted with AMS, sepsis syndrome. PMH: Prediabetes, GERD, HTN. A1C: 6.4%. BMI indicates class 2 obesity. Met with Ankur today and discussed optimal diet for weight loss/optimal blood sugar control. Reviewed hypo and hyperglycemia and how to alter intake/meds with each. Provided educational material and contact information. Recommended that he follow up with PCP when he is discharged and to follow out with outpatient diabetes program by CDE with [facility]. Receptive to information and willing to make positive changes. Currently meeting nutrient and fluid intake needs by mouth, not at risk for nutritional decline. A1C indicates mildly elevated blood sugars. Due to infection, blood sugars have been more elevated than typical for Ankur- requ iring sliding scale insulin. Doubt he will need insulin at discharge, may benefit from OTC blood sugar medications at discharge and close monitoring by PCP. INTERVENTION: Diabetic Diet Diabetic Diet Education PLAN: Follow Diabetic Diet and follow up with PCP when discharged Referred to [facility] and follow up with Joslyn Reddy RD, CDE Time Spent in Nutritional Counseling and Treatment: 30 min spent face to face
--- NOTE | 2019-10-26 14:30 | DI.MRI_ITS ---
EXAM: MR BRAIN WO CLINICAL HISTORY: fever, encepahlopathy. TECHNIQUE: Multiplanar multisequence MRI of the brain was performed. CONTRAST MATERIAL: Noncontrast COMPARISON: CT HEAD WO from 10/25/2019 FINDINGS: VENTRICLES AND EXTRA AXIAL SPACES: Normal in size and morphology for the patient's age. HEMORRHAGE: None. CEREBRAL PARENCHYMA: No focus of restricted diffusion to suggest acute infarct. There is a tiny lacu cynthia infarct in left frontal lobe. There are minimal white matter changes of small vessel disease.. MIDLINE SHIFT: None. BRAINSTEM/CEREBELLUM: Normal. CALVARIUM: Normal. VISUALIZED PARANASAL SINUSES/MASTOIDS: Clear. The vascular flow voids appear intact. The pituitary is normal in size. The orbits are unremarkable . IMPRESSION: Somewhat limited exam due to patient motion. Atrophy and mild white matter changes. 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 No acute abnormality. DATA REPOSITORY:
--- NOTE | 2019-10-26 16:36 | NUR.NOTE ---
Nursing Note: 10/26/19 1330: pts called and reported pt tripped outside but claims pt didnt hit head or fall hard. she also reported pt fell down a few steps at home. pt denies falling when nurse asked.
[2019-10-27 00:04] VITALS: BP 148/83; PULSE 65; RESP 19; TEMP 37.1; O2SAT 97
[2019-10-27] MEDS: Normal Saline Flush 10 ML SYR IVP ×2 (00:08→14:09)
[2019-10-27] MEDS: VANCOMYCIN 1,000 MG in Normal Saline 250 ML 250 MG IVPB (00:09)
[2019-10-27] MEDS: PIPERACILLIN/TAZO 4.5 GM in Normal Saline 100 ML IVPB ×3 (02:18→14:10)
[2019-10-27 04:13] VITALS: BP 181/93; PULSE 66; RESP 20; TEMP 37.2; O2SAT 95
[2019-10-27] MEDS: Acetaminophen 325 MG TAB PO ×2 (05:11→18:09)
[2019-10-27 06:54] LABS: Anion Gap 9.4 mmol/L (3-11); BUN 13 mg/dL (7-18); CO2 23.6 mmol/L (21.0-32.0); CREATININE 0.97 mg/dL (0.70-1.30); Calcium 8.4 mg/dL (8.5-10.1); Chloride 94 mmol/L (98-107); Glucose 146 mg/dL (74-106); Potassium 3.6 mmol/L (3.5-5.1); Sodium 127 mmol/L (136-145)
[2019-10-27 07:45] VITALS: BP 194/90; PULSE 62; RESP 18; TEMP 37; O2SAT 96
[2019-10-27] MEDS: Pantoprazole 40 MG TABCR PO (08:04)
[2019-10-27] MEDS: Metoprolol CR 25 MG TABCR PO (08:04)
[2019-10-27] MEDS: Losartan 50 MG TAB 100 MG PO (08:04)
[2019-10-27] MEDS: Insulin Aspart 300 UNITS/3 ML PEN SC (08:05)
[2019-10-27] MEDS: AZITHROMYCIN 250 MG in Normal Saline 250 ML 83.302 MG IVPB (09:12)
[2019-10-27] MEDS: Docusate Sodium 100 MG CAP PO (11:11)
[2019-10-27] MEDS: amLODIPine 5 MG TAB PO (11:11)
[2019-10-27 11:40] VITALS: BP 174/106; PULSE 53; RESP 18; TEMP 37.2; O2SAT 97
--- NOTE | 2019-10-27 14:00 | W.PM.PROGNOT ---
Date of Service Date of service: 10/27/19 Time of Service: 10:15 Assessment and Plan Assessment and plan (1) Sepsis: Status: Acute Assessment and plan: Blood culture growing strep salivarius from both aerobic and anaerobic bottles at around 24 hours of incubation. I think this is not a contaminant, but source unclear. I have ordered an echocardiogram transthoracic, may require transesophageal echocardiogram. I have tailored his antibiotics, placing him on ceftriaxone and discontinuing all other antibiotics. Repeat blood cultures have been drawn. Follow clinically. (2) Altered mental status: Status: Acute Assessment and plan: Mental status seems back to baseline. MRI of the brain does not suggest encephalitis, only remarkable finding is small frontal lacunar infarct age-indeterminate but certainly not new. I think his altered mental status was a manifestation of sepsis syndrome. I do not think he has herpes encephalitis and I am stopping acyclovir. I do not think he needs an LP and I am restarting his Eliquis. (3) Fever: Status: Resolved Assessment and plan: Temperature has normalized. (4) Sleep apnea: Status: Acute Assessment and plan: Tolerating CPAP, no changes planned. Does not have elevated bicarb to suggest chronic CO2 retention. His complaints of fatigue may be due to untreated sleep apnea. Continue to offer CPAP. (5) Gram-positive bacteremia: Status: Acute Assessment and plan: Source of his strep infection not clear. No oral lesions or dental pain or infection. Call to ID has been placed to discuss case and I await callback. (6) Mitral insufficiency: Status: Chronic Assessment and plan: May or may not be playing a role in his bacteremia. Strep bacteremia raises potential for endocarditis. Transthoracic echo ordered. May need transesophageal. (7) Gout: Status: Acute Assessment and plan: No recent flares. Allopurinol has been restarted. (8) Essential hypertension: Status: Acute Assessment and plan: Blood pressures creeping up. Amlodipine restarted. Continues on losartan and metoprolol. (9) Hyperglycemia: Status: Acute Assessment and plan: Hemoglobin A1c in the prediabetes range. Sliding scale short acting insulin. (10) Headache: Status: Acute Assessment and plan: A little better today. MRI reassuring. Perhaps med side effect? Change in antibiotics as noted above. (11) Left sided lacunar infarction: Status: Acute Assessment and plan: Clinically silent? Probable chronic. No known history of A. fib. Chronically anticoagulated. Continue efforts at blood pressure control. I do not think it has bearing on any of his current symptoms. (12) Hyponatremia: Status: Acute Assessment and plan: Continued drop in sodium, etiology remains to be identified. No suggestion of increased ICP or encephalitis on MRI. No pulmonary symptoms. No obvious reason for SIADH but suspect that is the cause. Possible med side effect? Follow sodium with change in antibiotics. Hold off on further investigation or imposing fluid restriction at this point. Subjective Subjective Interval history since last seen: Main complaint continues to be 1 of feeling generally fatigued. Headache better but not entirely gone. No double vision focals sensory or motor symptoms. Appetite poor but no nausea and no vomiting. No bowel movement since admission. Denies trouble urinating and no dysuria. Has not had any recurrent fever or chills. Blood culture growing strep salivarious. I placed a call to [facility] to discuss case but have not had a call back yet. MRI yesterday showed left frontal lacunar infarct, nothing more. Blood sugars mid 100s. Blood pressures have been creeping up. No oxygen requirement and no complaints of shortness of breath. Exam Narrative Exam Narrative: No acute distress. Awake alert and does not present as lethargic or tired. He is not confused. No facial asymmetry. Extraocular movements are normal. No increased head discomfort with head movement. Lungs clear throughout. Holosystolic 2/6 murmur at the left lower sternal border, no S3 or S4. Normal bowel sounds with no abdominal tenderness. Good pulses distally. No pitting edema. He sits up unassisted. Objective Objective Clinical Data: Abnormal lab results 10/27/19 Range/Units 06:20 Sodium 127 L (136-145) mmol/L Chloride 94 L (98-107) mmol/L Glucose 146 H (74-106) mg/dL Calcium 8.4 L (8.5-10.1) mg/dL Vital Signs Temperature 37.2 C 10/27/19 11:40 Temperature Source Temporal Artery Scan 10/27/19 11:40 Pulse 53 L 10/27/19 11:40 Pulse Rhythm Regular 10/27/19 09:00 Pulse 88 10/25/19 10:10 Respiratory Rate 18 10/27/19 11:40 Respiratory Effort 10/27/19 09:00 Respiratory Depth Normal 10/27/19 09:00 Respiratory Pattern Normal 10/27/19 09:00 Blood Pressure 174/106 H 10/27/19 11:40 Blood Pressure Mean 95 10/25/19 10:01 Pulse Oximetry 97 10/27/19 11:40 Respiratory End-tidal CO2 24 10/25/19 10:10 Oxygen Delivery Method Room Air 10/27/19 11:40 Oxygen Flow Rate 0 10/27/19 11:40 Fraction of Inspired Oxygen (FIO2) 10/26/19 09:28 Pain Level 2 10/27/19 05:11 Intake & Output 10/26/19 10/27/19 10/27/19 23:59 11:59 23:59 Intake Total 1200 / 2346.25 995.535 / 995.535 Output Total 300 / 500 150 / 150 Balance 900 / 1846.25 845.535 / 845.535 Weight 121 kg Intake: IV 1200 / 1866.25 755.535 / 755.535 Oral 240 / 240 Output: Urine 300 / 500 150 / 150 Other: Urine Color Yellow Yellow Urine Appearance Clear Clear Urine Odor None Comment pt reports voiding two times prior to this today. and voided at this time. LARGE VOID X 1 AT THIS TIME. Voiding Methods Urinal Toilet Laboratory Results WBC 15.11 k/cumm (4.4-10.8) H 10/26/19 07:00 RBC 3.64 m/cumm (4.50-6.00) L 10/26/19 07:00 Hgb 11.5 g/dL (13.5-17.5) L 10/26/19 07:00 Hct 33.2 % (40.0-50.0) L 10/26/19 07:00 MCV 91.2 fL (80-95) 10/26/19 07:00 MCH 31.6 pg (27.0-33.0) 10/26/19 07:00 MCHC 34.6 g/dL (32.0-36.0) 10/26/19 07:00 RDW 13.1 % (11.8-14.1) 10/26/19 07:00 Plt Count 235 x1000/uL (130-400) 10/26/19 07:00 MPV 9.2 fL (8.0-11.0) 10/26/19 07:00 Immature Gran % 0.2 % 10/26/19 07:00 Neutrophils % 89.7 10/26/19 07:00 Lymphocytes % 3.8 10/26/19 07:00 Monocytes % 6.2 10/26/19 07:00 Eosinophils % 0.1 10/26/19 07:00 Basophils % 0.0 10/26/19 07:00 Absolute Neutrophils 13.55 k/cumm (1.2-6.7) H 10/26/19 07:00 Absolute Lymphocytes 0.57 k/cumm (1.2-3.4) L 10/26/19 07:00 Absolute Monocytes 0.94 k/cumm (0.11-0.7) H 10/26/19 07:00 Absolute Eosinophils 0.02 k/cumm (0.0-0.7) 10/26/19 07:00 Absolute Basophils 0.00 k/cumm (0.0-0.2) 10/26/19 07:00 PT 11.1 sec (9.3-11.0) H 10/25/19 07:00 INR 1.1 (0.9-1.1) 10/25/19 07:00 APTT 24.5 sec (21.0-31.4) 10/25/19 07:00 ABG Sample Site Left radial 10/25/19 17:27 ABG pH 7.45 (7.35-7.45) 10/25/19 17:27 ABG pCO2 32 mmHg (34-47) L 10/25/19 17:27 ABG pO2 69 mmHg (83-108) L 10/25/19 17:27 ABG HCO3 22 mmol/L (22-28) 10/25/19 17:27 ABG Total CO2 20 mmol/L (22-29) L 10/25/19 17:27 ABG O2 Saturation 95 % (94-98) 10/25/19 17:27 ABG Base Excess -2.2 mmol/L (-3-3) 10/25/19 17:27 VBG pH 7.40 (7.35-7.45) 10/25/19 07:00 VBG pCO2 33 mm/Hg (34-47) L 10/25/19 07:00 VBG pO2 72 mm/Hg (28-44) H 10/25/19 07:00 VBG HCO3 21 mmol/L (22-28) L 10/25/19 07:00 VBG Total CO2 19 mmol/L (22-29) L 10/25/19 07:00 VBG O2 Saturation 95 % (70-80) H 10/25/19 07:00 VBG Base Excess -4.0 mmol/L (-3-3) L 10/25/19 07:00 Oxygen Liter Flow 2 L 10/25/19 17:27 Sodium 127 mmol/L (136-145) L 10/27/19 06:20 Potassium 3.6 mmol/L (3.5-5.1) 10/27/19 06:20 Chloride 94 mmol/L (98-107) L 10/27/19 06:20 Carbon Dioxide 23.6 mmol/L (21.0-32.0) 10/27/19 06:20 Anion Gap 9.4 mmol/L (3-11) 10/27/19 06:20 BUN 13 mg/dL (7-18) 10/27/19 06:20 Creatinine 0.97 mg/dL (0.70-1.30) 10/27/19 06:20 Estimated GFR/1.73 m2 >= 60.00 (mL/min/1.73m2) 10/27/19 06:20 Glucose 146 mg/dL (74-106) H 10/27/19 06:20 Hemoglobin A1c 6.4 % (3.8-5.6) H 10/26/19 07:00 Lactate 1.0 mmol/L (0.6-1.4) 10/26/19 07:00 Calcium 8.4 mg/dL (8.5-10.1) L 10/27/19 06:20 Total Bilirubin 1.2 mg/dL (0.2-1.0) H 10/26/19 07:00 AST 23 U/L (15-37) 10/26/19 07:00 ALT 45 U/L (16-63) 10/26/19 07:00 Alkaline Phosphatase 54 U/L (46-116) 10/26/19 07:00 Ammonia < 10 umol/L (11-32) L 10/25/19 07:00 Troponin I < 0.05 ng/Ml (<0.06) 10/25/19 07:00 Total Protein 6.8 g/dL (6.4-8.2) 10/26/19 07:00 Albumin 3.4 g/dL (3.4-5.0) 10/26/19 07:00 Procalcitonin 2.6 ng/mL 10/26/19 07:00 TSH 2.35 uIU/mL (0.36-3.74) 10/25/19 07:00 Urine Color Yellow (Yellow) 10/25/19 07:05 Urine Clarity Clear (Clear) 10/25/19 07:05 Urine pH 5.5 (5-8) 10/25/19 07:05 Ur Specific [place] 1.025 (1.005-1.025) 10/25/19 07:05 Urine Protein 30 mg/dL (Negative) H 10/25/19 07:05 Urine Ketones 40 mg/dL (Negative) H 10/25/19 07:05 Urine Blood Trace-intact (Negative) H 10/25/19 07:05 Urine Nitrite Negative (Negative) 10/25/19 07:05 Urine Bilirubin Negative (Negative) 10/25/19 07:05 Urine Urobilinogen 0.2 EU/dL (Up TO 0.2) 10/25/19 07:05 Ur Leukocyte Esterase Negative (Negative) 10/25/19 07:05 Urine RBC 0-2 HPF (0-2) 10/25/19 07:05 Urine WBC 0-2 HPF (0-5) 10/25/19 07:05 Ur Epithelial Cells Negative HPF (Negative) 10/25/19 07:05 Urine Crystals Negative HPF (Negative) 10/25/19 07:05 Urine Bacteria Negative HPF (Negative) 10/25/19 07:05 Urine Casts Negative LPF (Negative) 10/25/19 07:05 Urine Mucus Negative (Negative) 10/25/19 07:05 Urine Other Rare renal (Negative) 10/25/19 07:05 Ur Culture Indicated? C&s done as ordered 10/25/19 07:05 Urine Glucose 100 mg/dL (Negative) 10/25/19 07:05 Vancomycin Trough Cancelled 10/27/19 11:00 Ethyl Alcohol < 3.0 mg/dL (<3) 10/25/19 07:00 Coronavirus (PCR) Negative (Negative) 10/25/19 12:30 echocardiogram pending.
--- NOTE | 2019-10-27 14:42 | PHA.REVIEW ---
Pharmacy Admission Review - Admission Clinical Review (Last Updated 10/26/19 @ 13:32 by Lamonte Davis MD) Headache (Acute) Hyperglycemia (Acute) Sepsis (Acute) Altered mental status (Acute) Acute dehydration (Acute) Sleep apnea (Acute 08/05/14) Other pulmonary embolism without acute cor pulmonale (Acute 09/17/17) Non-rheumatic mitral regurgitation (Acute 09/17/17) Gout (Acute) Essential hypertension (Acute 06/07/13) Gram-positive bacteremia (Acute) No Known Allergies Allergy (Verified 10/25/19 07:00) Height 5 ft 10 in Weight 121 kg - Comments Comments/Follow Ups: Abx regimen descalated from zosyn+vanco to ceftriaxone - Renal Dosing Renal Dosing: BUN 13 mg/dL (7-18) 10/27/19 06:20 Creatinine 0.97 mg/dL (0.70-1.30) 10/27/19 06:20 Medications needing adjustments: Reviewed - Anticoagulation Anticoagulation: Hgb 11.5 g/dL (13.5-17.5) L 10/26/19 07:00 Hct 33.2 % (40.0-50.0) L 10/26/19 07:00 Plt Count 235 x1000/uL (130-400) 10/26/19 07:00 INR 1.1 (0.9-1.1) 10/25/19 07:00 Creatinine 0.97 mg/dL (0.70-1.30) 10/27/19 06:20 DVT Prohphylaxis: N/A Therapeutic Anticoagulation: Reviewed Medications: Apixaban - Opiate Usage Evaluate Pain Scale/Pains Meds: N/A Scheduled Bowel Reg ordered if on Opiates?: No (PRN) - Relevant Labs Sodium 127 mmol/L (136-145) L 10/27/19 06:20 Potassium 3.6 mmol/L (3.5-5.1) 10/27/19 06:20 Chloride 94 mmol/L (98-107) L 10/27/19 06:20 Electrolytes, C-Reactive P, ESR: Reviewed (hyponatremia noted -- follow Na with change in antibiotics per note) - DM Control DM Control: Glucose 146 mg/dL (74-106) H 10/27/19 06:20 Hemoglobin A1c 6.4 % (3.8-5.6) H 10/26/19 07:00 Finger Stick Blood Glucose 138 Finger Stick Blood Glucose 138 Finger Stick Blood Glucose 147 Finger Stick Blood Glucose 147 Insulin Dosing: Reviewed (Prediabetes -- started on aspart SS) - Heart Failure/LA Heart Failure/LA: Troponin I < 0.05 ng/Ml (<0.06) 10/25/19 07:00 EF%, YONATAN's, B-Blockers, Diuretics: Reviewed (mitral insufficiency, echo ordered... endocarditis?) - BP Control BP Control: Blood Pressure 174/106 Blood Pressure 194/90 Blood Pressure 181/93 If elevated: Reviewed (amlodipine started today in addition to metoprolol and losartan) - Home Meds Relevent Home Meds Not ordered & why?: cimetidine -- suggest discontinuing: BEERS list, can cause delirium in elderly
[2019-10-27 15:44] VITALS: BP 181/101; PULSE 68; RESP 19; TEMP 37; O2SAT 96
--- NOTE | 2019-10-27 17:11 | PDOC.CMPRO ---
- If Service Date Differs Date of service: 10/27/19 Time of Service: 17:11 Care Management Progress Note S/O: Ankur is improved from yesterday. He is afebrile and his mental status is back to baseline. He is sitting on the side of the bed, eating his dinner. He shares this is the first real food he's had in three days. He talks about becoming ill at home and states he doesn't remember coming to the hospital by ambulance or being in the emergency department. Ankur reports he is independent at baseline and is looking forward to returning home soon. CM will continue to follow. A: Ankur is a 69 year old male admitted to [facility] on 10/25/19 for sepsis and altered mental status. P: Anticipate Ankur will be discharged home with no new services when medically cleared by provider. He will follow-up with his PCP and plan of care as directed. He will be driven home by family via private vehicle when ready. CM will continue to support patient and discharge planning needs.
[2019-10-27] MEDS: cefTRIAXone 2 GM/50 ML BAG IVPB (17:13)
[2019-10-27 19:40] VITALS: BP 134/90; PULSE 75; RESP 17; TEMP 37.1; O2SAT 95
[2019-10-27] MEDS: Apixaban 5 MG TAB PO (19:48)
[2019-10-28] VITALS (65 sets, daily range): BP systolic 100–179; BP diastolic 60–125; PULSE 47–150; RESP 11–24; TEMP 36.5–37.6; O2SAT 91–98
[2019-10-28 06:36] LABS: Abs Immature Grans 0.07 k/cumm (0.0-0.09); Absolute Basophil Count 0.01 k/cumm (0.0-0.2); Absolute Eosinophil Count 0.03 k/cumm (0.0-0.7); Absolute Lymphocyte Count 0.87 k/cumm (1.2-3.4); Absolute Monocyte Count 0.71 k/cumm (0.11-0.7); Absolute Neutrophil Count 5.31 k/cumm (1.2-6.7); Basophils % 0.1; Eosinophils % 0.4; HCT 35.4 % (40.0-50.0); HGB 12.2 g/dL (13.5-17.5); Lymphocytes % 12.4; Mean Corp. HGB Concentration 34.5 g/dL (32.0-36.0); Mean Corpuscular Hemoglobin 31.3 pg (27.0-33.0); Mean Corpuscular Volume 90.8 fL (80-95); Mean Platelet Volume 9.5 fL (8.0-11.0); Monocytes % 10.1; Platelet Count 304 x1000/uL (130-400); RBC Distribution Width 13.1 % (11.8-14.1)
[2019-10-28 06:49] LABS: Anion Gap 8.5 mmol/L (3-11); BUN 17 mg/dL (7-18); CO2 25.5 mmol/L (21.0-32.0); CREATININE 1.23 mg/dL (0.70-1.30); Calcium 9.2 mg/dL (8.5-10.1); Chloride 99 mmol/L (98-107); Estimated GFR 58.52 (mL/min/1.73m2); Glucose 123 mg/dL (74-106); Potassium 3.6 mmol/L (3.5-5.1); Sodium 133 mmol/L (136-145)
[2019-10-28] MEDS: Acetaminophen 325 MG TAB PO ×2 (08:13→15:45)
[2019-10-28] MEDS: Losartan 50 MG TAB 100 MG PO (08:14)
[2019-10-28] MEDS: Metoprolol CR 25 MG TABCR PO (08:15)
[2019-10-28] MEDS: amLODIPine 5 MG TAB PO (08:15)
[2019-10-28] MEDS: Allopurinol 300 MG TAB PO (08:15)
[2019-10-28] MEDS: Apixaban 5 MG TAB PO ×2 (08:15→20:10)
[2019-10-28] MEDS: Pantoprazole 40 MG TABCR PO (08:15)
[2019-10-28] MEDS: Metoprolol 5 MG/5 ML VIAL IVP (09:34)
[2019-10-28] MEDS: Furosemide 20 MG TAB PO (10:28)
[2019-10-28] MEDS: dilTIAZem 125 MG in Normal Saline 100 ML IV (11:28)
--- NOTE | 2019-10-28 11:48 | PDOC.CMPRO ---
- If Service Date Differs Date of service: 10/28/19 Time of Service: 11:48 Care Management Progress Note S/O:Ankur was sitting up in bed when CM met with him. He stated that he is feeling much better even though he has been transferred to the ICU. Ankur has a new diagnosis of afib with rapid ventricular response requiring a diltiazem drip. He maintains he has no symptoms with the tachycardia. Ankur is going to require snf IV antibiotic therapy. CM discussed options with him and Ankur stated that he would be agreeable to coming to the [facility] Infusion Center. A: Ankur is a 69 year old male admitted to [facility] on 10/25/19 for sepsis and altered mental status. P: Anticipate Ankur will be discharged home with snf IV antibiotic therapy which he will likely receive at the Infusion Center. He will follow-up with his PCP and plan of care as directed. He will be driven home by family via private vehicle when ready. CM will continue to support patient and discharge planning needs.
--- NOTE | 2019-10-28 11:54 | CCONE_ITS ---
Date of service: 10/28/19 Time of Service: 11:54 Assessment and Plan Assessment and plan (1) Mitral insufficiency: Status: Chronic Assessment and plan: 1. Bacteremia with concern for endocarditis. The patient has Streptococcus salivarius. He has recovered mental status nicely with antibiotics. Surface echocardiogram shows known mitral regurgitation grossly unchanged from baseline. A large amount of posterior mitral annular calcification makes interpretation slightly difficult but there is no evidence of vegetation. Should the patient fail to clear his blood cultures we could consider BETSY but in the era of coronavirus the [place] [employer] of [employer] has recommended avoiding TEEs unless absolutely necessary. I think we can see the valve well enough on surface echo to say that there is low likelihood of a vegetation though that area of calcification poses some challenges. ?Continue to treat bacteremia with antibiotics per hospitalist team ?Would suggest follow-up surface echocardiogram in 1 to 2 weeks. 2. Atrial fibrillation: Unclear if this is new during the episode of bacteremia or if he has had this before but has been clinically silent. He does have evidence on MRI of a stroke which may be have been related to this in the past. His left atrium is not severely dilated but it is not unexpected for patient to develop atrial fibrillation in the setting of such mitral regurgitation. He has a history of PE and is already well on Eliquis but unfortunately had missed a few doses due to planning for a possible lumbar puncture in the setting of acute mental status change. At this point I think it is most appropriate to rate control as best we can with a plan for outpatient cardioversion once he has been on Eliquis for a full 30 days. ?Agree with rate control using beta-joesph and/or calcium channel joesph. ?Would only cardiovert unless patient clinically decompensates. ?Continue apixaban 3. Mitral regurgitation: Moderate to severe. He has been followed by Dr. Carmen who did a transesophageal echocardiogram in the fall of this year as part of his mitral valve work-up. He is planning to see him this spring. He is already been evaluated by [facility] CT surgery who is in the midst of working him up though per his chart review does not seem that they are in a shields to get him into surgery. ?Diuretics as needed. Patient does not appear fluid overloaded on my exam today. ?Atrial fibrillation control as above. (2) NSVT (nonsustained ventricular tachycardia): Status: Acute (3) Atrial fibrillation: Status: Chronic History of Present Illness History of Present Illness Chief Complaint: Bacteremia Narrative: Mr. Roque is a 69-year-old male with past medical history significant for moderate to severe mitral regurgitation who presented 2 days ago with altered mental status. Found to have gram-positive bacteremia in 2 out of 2 vials. The source of this remains unclear. Upon initiation of antibiotics patient's mental status severely improved and he has now conversant and able to answer all questions at the bedside. He was previously followed here by cardiology and has been evaluated down at [facility] for timing of mitral valve repair/replacement. That was deferred for 6 months prior to the COVID epidemic. He has not been seen in the interim. He is also noted to be in atrial fibrillation with RVR. This is a new finding to his knowledge but interestingly he was noted on MRI to have a lacunar infarct possibly clinically silent. Today he shows me his Fitbit watch which shows that his heart rate is in the 60s acc ording to his watch though on the monitor his heart rate is irregular and in the 120s. He is asymptomatic and thinks that he might have been in atrial fibrillation prior though did not notice. We can confirm that. Review of Systems All systems reviewed & are unremarkable except as noted in HPI and below PFS Medical History (Updated 10/28/19 @ 12:06 by Bernard Bosch MD) Chronic anticoagulation (Acute) GERD (gastroesophageal reflux disease) (Chronic) Gout HTN (hypertension) Hyperlipidemia Left sided lacunar infarction (Acute) Malignant melanoma October 2015, ma carmencita, central parietal scalp Mitral insufficiency (Chronic) Prostate cancer diagnosed 2002, s/p prostatectomy Pulmonary embolism September 2017. Treated with Eliquis. Rectal cancer 04/14/12 - transanal excision, chemotherapy, radiation, no evidence of metastatic disease, colonoscopy 10/31/15 showed only diverticulosis and hemorrhoids with f/u recommended in 2 years. 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 No abnormalities found with this colonoscopy, Dr Jin recommends repeat in 3 yrs. Prostatectomy Skin Cancer Removal (~06/2015) DR. CRONIN Transanal excision rectal cancer Family History Mother , age 78 Essential hypertension Cancer Father , age 80 Alzheimer's disease Sister No problems noted. Sister No problems noted. Brother Cancer Hypertension Son No problems noted. Son No problems noted. Son No problems noted. Daughter No problems noted. Maternal Grandfather Cancer Social History Smoking/Tobacco Use Status: Never Second Hand Exposure: Yes Alcohol Intake: current Alcohol Intake frequency: a few times a week Alcohol type: beer, wine and hard liquor Drug use: Rarely Substance use type: marijuana Caregiver/Support person: No Household members: spouse Housing: house Communication Needs: None Do you need help understanding health information?: Never Pets and animals: Yes Pets and animals: dog(s) Sexually active: No Do you think of yourself as: straight/heterosexual Current gender identity: male What is your relationship status?: How often do you talk on the phone with friends or family?: three or more times per week How often do you get together with friends or relatives?: once per week How often do you attend presybeterian or bahai services?: 1-3 times per year Do you belong to any clubs or organized social groups?: no Panel score (0-1 are the most socially isolated patients): 2 What type of physical activity do you participate in: decline to answer Duration: decline to answer Frequency: decline to answer Kyara/Latter-Day: Protestant Special kyara needs: No Seatbelt use: always 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 Do you feel safe in your relationship?: Yes Exam Const General: comfortable and no acute distress HENMT Head: normocephalic and atraumatic Eyes General: appearance normal, both eyes and all related structures Resp Effort & Inspection: normal respiratory effort Auscultation: clear to auscultation bilaterally Cardio Jugular venous pressure: no JVD Palpation: normal PMI Rate: tachycardic Rhythm: abnormal rhythm Heart Sounds: S1 normal and murmur systolic III/ and at the apex GI Palpation: soft Auscultation: normoactive bowel sounds Skin General skin exam: no rashes or lesions noted Extrem General: normal to inspection and no clubbing, cyanosis or edema Psych Appearance: grossly normal Results Last Vital Signs Temp 36.6 C 10/28/19 10:40 Pulse 85 10/28/19 10:40 Resp 17 10/28/19 10:40 BP 179/125 H 10/28/19 10:40 Pulse Ox 97 10/28/19 10:40 Labs Result diagrams: 10/28/19 06:15 10/28/19 06:15 Labs: Laboratory Results - last 24 hr 10/28/19 10/28/19 06:15 06:15 WBC 7.00 RBC 3.90 L Hgb 12.2 L Hct 35.4 L MCV 90.8 MCH 31.3 MCHC 34.5 RDW 13.1 Plt Count 304 MPV 9.5 Immature Gran % 1.0 Neutrophils % 76.0 Lymphocytes % 12.4 Monocytes % 10.1 Eosinophils % 0.4 Basophils % 0.1 Absolute Neutrophils 5.31 Absolute Lymphocytes 0.87 L Absolute Monocytes 0.71 H Absolute Eosinophils 0.03 Absolute Basophils 0.01 Sodium 133 L Potassium 3.6 Chloride 99 Carbon Dioxide 25.5 Anion Gap 8.5 BUN 17 Creatinine 1.23 Estimated GFR/1.73 m2 58.52 Glucose 123 H Calcium 9.2
--- NOTE | 2019-10-28 13:01 | PGE_ITS ---
Date of Service Date of service: 10/28/19 Time of Service: 13:01 Assessment and Plan Assessment and plan (1) Streptococcal bacteremia: Status: Acute Assessment and plan: Strep salivarios bacteremia with no change in his echocardiogram that would indicate endocarditis, recognizing limitations of transthoracic echocardiogram. Blood cultures drawn yesterday remain sterile thus far. Absent continued bacteremia we are holding off on plans for transesophageal echocardiogram. Reviewed MRI findings with radiology in the left frontal infarct has no characteristics that this is due to septic embolization. He will need a minimum of 2 weeks of IV ceftriaxone per consultation with ID yesterday. If blood cultures continue to be positive presumptive diagnosis of endocarditis would indicate 6 weeks of IV antibiotics. PICC line to be placed with tentative plans for once daily outpatient ceftriaxone infusions. (2) Atrial fibrillation: Status: Chronic Assessment and plan: As far as we know, new onset this morning. Ventricular response rapid and has responded to IV diltiazem bolus and infusion. Asymptomatic from this. Chronically anticoagulated. Continue IV diltiazem overnight for assessment of response and dosage needed to maintain rate. Likely transition to oral diltiazem tomorrow if all goes well. Beta-joesph may or may not be needed in addition depending upon pulse rate and blood pressure response. Cardiology input appreciated. (3) Mitral insufficiency: Status: Chronic Assessment and plan: Echocardiogram shows worsening. Historically his exercise tolerance has been slowly worsening. Ultimately will need valve replacement. Needs to clear bacteremia and get A. fib under control before any surgical consideration. Diuretic has been added to his regimen, monitor clinical response. (4) Sleep apnea: Status: Acute Assessment and plan: Historically has not been using his home unit. Respiratory therapy will see if there is a way to make this more comfortable. Encouraged him to use it as it may be contributing to his A. fib, headache and hypertension. (5) Headache: Status: Acute Assessment and plan: As above, encouraged to use his home BiPAP unit consistently. Acetaminophen seems to be adequate for controlling symptoms. No concerning neurologic signs and reassuring MRI. (6) Hyponatremia: Status: Acute Assessment and plan: Improving. Continue to monitor sodium. I do not see a need at this point for fluid restriction. Diuretics started as noted above. (7) Hyperglycemia: Status: Acute Assessment and plan: Mild. Hemoglobin A1c compatible with prediabetes. This can probably be managed with dietary changes as an outpatient. I am stopping fingerstick blood sugars as we have not been doing much with the results. Insulin also stopped. (8) Essential hypertension: Status: Acute Assessment and plan: Blood pressures have been running high on his outpatient meds. There is going to be significant medication rearrangement because of the A. fib. Monitor blood pressure response to the combination of furosemide, losartan and diltiazem. Subjective Subjective Interval history since last seen: Only complaint this morning is of continued mild throbbing bitemporal headache. This has responded to acetaminophen. Repeat blood cultures no growth thus far. Echocardiogram yesterday showing worsening mitral insufficiency. The valve does not appear structurally any different compared to his last echocardiogram. LV function normal. No definitive evidence for endocarditis. On exam this morning found to be in atrial fibrillation with rapid ventricular response confirmed by EKG. He received IV metoprolol 5 mg with no significant change in his rate or rhythm. He had 2 nonsustained runs of ventricular tachycardia. All of this has been asymptomatic. He was transferred to the ICU. He has been in A. fib with no further runs of VT. Anticoagulation was restarted yesterday. No bleeding complications. Blood sugars have been in the mid 100s with very infrequent use of insulin. Mental status has remained clear. Exam Narrative Exam Narrative: Awake talkative mental status clear, no distress. Pupils equal and reactive, extraocular meds normal. No headache worsening or neck pain with head movement in any direction. Cannot see neck veins because of his neck size. Lungs are clear. Rapid irregularly irregular heart rhythm without S3 or S4. With his rapid rhythm I cannot hear much in the way of a heart murmur, there may be a brief systolic murmur at the left lower sternal border. No rub. Abdomen obese soft with active bowel sounds. Extremities warm good pulses no pitting edema. Moves all extremities symmetrically. Objective Objective Clinical Data: Abnormal lab results 10/28/19 10/28/19 Range/Units 06:15 06:15 RBC 3.90 L (4.50-6.00) m/cumm Hgb 12.2 L (13.5-17.5) g/dL Hct 35.4 L (40.0-50.0) % Absolute Lymphocytes 0.87 L (1.2-3.4) k/cumm Absolute Monocytes 0.71 H (0.11-0.7) k/cumm Sodium 133 L (136-145) mmol/L Glucose 123 H (74-106) mg/dL Vital Signs Temperature 36.6 C 10/28/19 10:40 Temperature Source Temporal Artery Scan 10/28/19 10:40 Pulse 62 10/28/19 12:45 Pulse Rhythm Irregular 10/28/19 10:15 Pulse 101 H 10/28/19 12:45 Respiratory Rate 17 10/28/19 12:45 Respiratory Effort Non-Labored 10/28/19 10:15 Respiratory Depth Normal 10/28/19 10:15 Respiratory Pattern Normal 10/28/19 10:15 Blood Pressure 125/76 10/28/19 12:45 Blood Pressure Mean 90 10/28/19 12:45 Pulse Oximetry 95 10/28/19 12:45 Respiratory End-tidal CO2 24 10/25/19 10:10 Oxygen Delivery Method Room Air 10/28/19 10:40 Oxygen Flow Rate 0 10/28/19 10:40 Fraction of Inspired Oxygen (FIO2) 21 10/28/19 11:16 Pain Level 0 10/28/19 11:55 Comment 10/28/19 10:40 Intake & Output 10/27/19 10/28/19 10/28/19 23:59 11:59 23:59 Intake Total 990 / 1985.535 2.5 / 9.0 6.5 / 9.0 Output Total 300 / 825 525 / 825 Balance 990 / 1835.535 -297.5 / -816.0 -518.5 / -816.0 Weight 116.1 kg Intake: IV 150 / 905.535 2.5 / 9.0 6.5 / 9.0 Oral 840 / 1080 Output: Urine 300 / 825 525 / 825 Other: Urine Color Yellow Pale Pale Yellow Yellow Urine Appearance Clear Clear Clear Urine Odor None Stool Size Moderate Large Stool Characteristics Soft Brown Voiding Methods Toilet Urinal Urinal Laboratory Results WBC 7.00 k/cumm (4.4-10.8) 10/28/19 06:15 RBC 3.90 m/cumm (4.50-6.00) L 10/28/19 06:15 Hgb 12.2 g/dL (13.5-17.5) L 10/28/19 06:15 Hct 35.4 % (40.0-50.0) L 10/28/19 06:15 MCV 90.8 fL (80-95) 10/28/19 06:15 MCH 31.3 pg (27.0-33.0) 10/28/19 06:15 MCHC 34.5 g/dL (32.0-36.0) 10/28/19 06:15 RDW 13.1 % (11.8-14.1) 10/28/19 06:15 Plt Count 304 x1000/uL (130-400) 10/28/19 06:15 MPV 9.5 fL (8.0-11.0) 10/28/19 06:15 Immature Gran % 1.0 % 10/28/19 06:15 Neutrophils % 76.0 10/28/19 06:15 Lymphocytes % 12.4 10/28/19 06:15 Monocytes % 10.1 10/28/19 06:15 Eosinophils % 0.4 10/28/19 06:15 Basophils % 0.1 10/28/19 06:15 Absolute Neutrophils 5.31 k/cumm (1.2-6.7) 10/28/19 06:15 Absolute Lymphocytes 0.87 k/cumm (1.2-3.4) L 10/28/19 06:15 Absolute Monocytes 0.71 k/cumm (0.11-0.7) H 10/28/19 06:15 Absolute Eosinophils 0.03 k/cumm (0.0-0.7) 10/28/19 06:15 Absolute Basophils 0.01 k/cumm (0.0-0.2) 10/28/19 06:15 PT 11.1 sec (9.3-11.0) H 10/25/19 07:00 INR 1.1 (0.9-1.1) 10/25/19 07:00 APTT 24.5 sec (21.0-31.4) 10/25/19 07:00 ABG Sample Site Left radial 10/25/19 17:27 ABG pH 7.45 (7.35-7.45) 10/25/19 17:27 ABG pCO2 32 mmHg (34-47) L 10/25/19 17:27 ABG pO2 69 mmHg (83-108) L 10/25/19 17:27 ABG HCO3 22 mmol/L (22-28) 10/25/19 17:27 ABG Total CO2 20 mmol/L (22-29) L 10/25/19 17:27 ABG O2 Saturation 95 % (94-98) 10/25/19 17:27 ABG Base Excess -2.2 mmol/L (-3-3) 10/25/19 17:27 VBG pH 7.40 (7.35-7.45) 10/25/19 07:00 VBG pCO2 33 mm/Hg (34-47) L 10/25/19 07:00 VBG pO2 72 mm/Hg (28-44) H 10/25/19 07:00 VBG HCO3 21 mmol/L (22-28) L 10/25/19 07:00 VBG Total CO2 19 mmol/L (22-29) L 10/25/19 07:00 VBG O2 Saturation 95 % (70-80) H 10/25/19 07:00 VBG Base Excess -4.0 mmol/L (-3-3) L 10/25/19 07:00 Oxygen Liter Flow 2 L 10/25/19 17:27 Sodium 133 mmol/L (136-145) L 10/28/19 06:15 Potassium 3.6 mmol/L (3.5-5.1) 10/28/19 06:15 Chloride 99 mmol/L (98-107) 10/28/19 06:15 Carbon Dioxide 25.5 mmol/L (21.0-32.0) 10/28/19 06:15 Anion Gap 8.5 mmol/L (3-11) 10/28/19 06:15 BUN 17 mg/dL (7-18) 10/28/19 06:15 Creatinine 1.23 mg/dL (0.70-1.30) 10/28/19 06:15 Estimated GFR/1.73 m2 58.52 (mL/min/1.73m2) 10/28/19 06:15 Glucose 123 mg/dL (74-106) H 10/28/19 06:15 Hemoglobin A1c 6.4 % (3.8-5.6) H 10/26/19 07:00 Lactate 1.0 mmol/L (0.6-1.4) 10/26/19 07:00 Calcium 9.2 mg/dL (8.5-10.1) 10/28/19 06:15 Total Bilirubin 1.2 mg/dL (0.2-1.0) H 10/26/19 07:00 AST 23 U/L (15-37) 10/26/19 07:00 ALT 45 U/L (16-63) 10/26/19 07:00 Alkaline Phosphatase 54 U/L (46-116) 10/26/19 07:00 Ammonia < 10 umol/L (11-32) L 10/25/19 07:00 Troponin I < 0.05 ng/Ml (<0.06) 10/25/19 07:00 Total Protein 6.8 g/dL (6.4-8.2) 10/26/19 07:00 Albumin 3.4 g/dL (3.4-5.0) 10/26/19 07:00 Procalcitonin 2.6 ng/mL 10/26/19 07:00 TSH 2.35 uIU/mL (0.36-3.74) 10/25/19 07:00 Urine Color Yellow (Yellow) 10/25/19 07:05 Urine Clarity Clear (Clear) 10/25/19 07:05 Urine pH 5.5 (5-8) 10/25/19 07:05 Ur Specific [place] 1.025 (1.005-1.025) 10/25/19 07:05 Urine Protein 30 mg/dL (Negative) H 10/25/19 07:05 Urine Ketones 40 mg/dL (Negative) H 10/25/19 07:05 Urine Blood Trace-intact (Negative) H 10/25/19 07:05 Urine Nitrite Negative (Negative) 10/25/19 07:05 Urine Bilirubin Negative (Negative) 10/25/19 07:05 Urine Urobilinogen 0.2 EU/dL (Up TO 0.2) 10/25/19 07:05 Ur Leukocyte Esterase Negative (Negative) 10/25/19 07:05 Urine RBC 0-2 HPF (0-2) 10/25/19 07:05 Urine WBC 0-2 HPF (0-5) 10/25/19 07:05 Ur Epithelial Cells Negative HPF (Negative) 10/25/19 07:05 Urine Crystals Negative HPF (Negative) 10/25/19 07:05 Urine Bacteria Negative HPF (Negative) 10/25/19 07:05 Urine Casts Negative LPF (Negative) 10/25/19 07:05 Urine Mucus Negative (Negative) 10/25/19 07:05 Urine Other Rare renal (Negative) 10/25/19 07:05 Ur Culture Indicated? C&s done as ordered 10/25/19 07:05 Urine Glucose 100 mg/dL (Negative) 10/25/19 07:05 Vancomycin Trough Cancelled 10/27/19 11:00 Ethyl Alcohol < 3.0 mg/dL (<3) 10/25/19 07:00 Coronavirus (PCR) Negative (Negative) 10/25/19 12:30 Second set of blood cultures remains negative thus far. Echocardiogram with preserved LV function, worsening mitral insufficiency but no structural change compared to last echocardiogram to suggest bacterial vegetation.
--- NOTE | 2019-10-28 15:40 | DI.RAD_ITS ---
EXAM: XR PORTABLE CHEST AP POST LINE INDICATION: post PICC insertion. COMPARISON: TECHNIQUE: 2D digital imaging was performed. FINDINGS: The heart is enlarged, unchanged. EKG leads overlie the chest. A PICC line has been inserted via t he left arm. The tip projects in the upper right atrium. The lungs are clear. No infiltrate or eff usions are seen. There is no evidence of pneumothorax. IMPRESSION: Tip of the PICC line projects in the upper right atrium. DATA REPOSITORY: RADIATION DOSE DELIVERED:
[2019-10-28] MEDS: cefTRIAXone 2 GM/50 ML BAG IVPB (15:44)
--- NOTE | 2019-10-28 16:10 | DI.VRAD_ITS ---
PROCEDURE INFORMATION: Exam: XR Chest, 1 View Exam date and time: 10/28/2019 3:50 PM Age: 69 years old Clinical indication: Other: Post picc insertion TECHNIQUE: Imaging protocol: XR of the chest Views: 1 view. COMPARISON: CR XR CHEST 2V PA LATERAL 04/05/2019 4:37 PM FINDINGS: Tubes, catheters and devices: Right PICC catheter tip in the distal superior vena cava. Lungs: Unremarkable. No consolidation. Pleural space: Unremarkable. No pleural effusion. No pneumothorax. Heart/Mediastinum: Unremarkable. No cardiomegaly. Bones/joints: No acute findings. IMPRESSION: Right PICC line catheter tip in the superior vena cava. Dictated and Authenticated by: Petros Brandon MD. Ordering:SHERMAN Aburto MD
[2019-10-28] MEDS: Normal Saline Flush 10 ML SYR IVP ×2 (16:29→16:32)
[2019-10-28] MEDS: Normal Saline Flush 10 ML SYR 20 ML IVP (20:10)
[2019-10-28] MEDS: dilTIAZem 125 MG in Normal Saline 100 ML 10 MG IV (20:23)
[2019-10-29] VITALS (35 sets, daily range): BP systolic 87–151; BP diastolic 65–94; PULSE 51–153; RESP 11–21; TEMP 36.4–37.4; O2SAT 92–97
[2019-10-29] MEDS: Acetaminophen 325 MG TAB PO ×4 (00:10→20:35)
[2019-10-29] MEDS: Normal Saline Flush 10 ML SYR 20 ML IVP ×2 (05:24→20:25)
[2019-10-29] MEDS: Normal Saline Flush 10 ML SYR IVP ×2 (06:07→09:34)
[2019-10-29 06:45] LABS: Anion Gap 8.1 mmol/L (3-11); BUN 25 mg/dL (7-18); CO2 26.9 mmol/L (21.0-32.0); CREATININE 1.32 mg/dL (0.70-1.30); Calcium 8.9 mg/dL (8.5-10.1); Chloride 101 mmol/L (98-107); Estimated GFR 53.94 (mL/min/1.73m2); Glucose 117 mg/dL (74-106); Magnesium 2.1 mg/dL (1.8-2.4); Potassium 3.6 mmol/L (3.5-5.1); Sodium 136 mmol/L (136-145)
[2019-10-29] MEDS: Furosemide 20 MG TAB PO (07:47)
[2019-10-29] MEDS: dilTIAZem 60 MG TAB PO (07:47)
[2019-10-29] MEDS: Pantoprazole 40 MG TABCR PO (07:47)
[2019-10-29] MEDS: Apixaban 5 MG TAB PO ×2 (07:47→20:24)
[2019-10-29] MEDS: Allopurinol 300 MG TAB PO (07:47)
[2019-10-29] MEDS: Losartan 50 MG TAB 100 MG PO (07:47)
[2019-10-29] MEDS: cefTRIAXone 2 GM/50 ML BAG IVPB (09:16)
--- NOTE | 2019-10-29 10:17 | CMPROGNOTE_ITS ---
- If Service Date Differs Date of service: 10/29/19 Time of Service: 10:17 Care Management Progress Note S/O:Ankur was sitting up in bed when CM met with him. He was pleasant and agreeable to conversation. Ankur stated that he remains asymtomatic but that when he gets OOB, his heart rate accelerates to over 150. Ankur shared that he is looking forward to discharging home as soon as his heart rate is controlled. He also shared that he is agreeable to the plan of completing his course of IV a ntibiotics at the [facility]. Ankur requested that CM facilitate his ability to receive any new medications through [employer], which is a mail order process. He will need a new prescription to mail/fax in as well as a one week supply from a local pharmacy. He uses [facility] in [facility] when needed. A: Ankur is a 69 year old male admitted to [facility] on 10/25/19 for sepsis and altered mental status. P: Anticipate Ankur will be discharged home with [facility] IV antibiotic therapy which he will receive at the [facility]fusion [facility]. He will follow-up with his PCP and plan of care as directed. He will be driven home by family via private vehicle when ready. Ankur requested that CM facilitate his ability to receive any new medications through [employer], which is a mail order process. He wi ll need a new prescription to mail/fax in as well as a one week supply from a local pharmacy. He uses [facility] in [facility] when needed. CM will continue to support patient and discharge planning needs.
--- NOTE | 2019-10-29 12:42 | W.PM.PROGNOT ---
Date of Service Date of service: 10/29/19 Time of Service: 08:00 Assessment and Plan Assessment and plan (1) Streptococcal bacteremia: Status: Acute Assessment and plan: Strep salivarios bacteremia with no change in his echocardiogram that would indicate endocarditis, recognizing limitations of transthoracic echocardiogram. Plan is for 2 weeks of IV ceftriaxone, start date of October 27, 2019. PICC line was placed yesterday. Outpatient infusion therapy once daily planned once discharge. Consider repeating transthoracic echocardiogram soon before or just after completion of treatment. (2) Atrial fibrillation: Status: Chronic Assessment and plan: Rate slowed with IV diltiazem. Transitioning to oral. Using short acting diltiazem to titrate dose for rate control. May need to add beta-joesph if inadequate control. Blood pressure thus far acceptable. Chronic anticoagulation with apixaban continues. Due to disruption of therapy for a day and a half in anticipation of possible LP related to his presenting mental status changes, attempts at either chemical or electrical cardioversion will have to be deferred. (3) Mitral insufficiency: Status: Chronic Assessment and plan: Echocardiogram shows worsening. Ultimately he will need to have valve replaced but this will have to wait until after his bacteremia has cleared. I am continuing Lasix partly for volume control and partly for blood pressure control. BUN and creatinine have bumped up a little, need to continue to monitor. Might need to back off on diuretic if they continue to rise. (4) Sleep apnea: Status: Acute Assessment and plan: Historically has not been using his home unit. Tolerated the use last night quite well. Continue home CPAP unit. (5) Headache: Status: Acute Assessment and plan: He did not have a headache this morning after use of his CPAP machine making me suspicious that at least some of his headache may be due to his sleep apnea. Continue Tylenol as needed. (6) Hyponatremia: Status: Resolved Assessment and plan: Continue to monitor sodium. I do not see a need at this point for fluid restriction. Diuretics started as noted above. (7) Hyperglycemia: Status: Acute Assessment and plan: Mild. Hemoglobin A1c compatible with prediabetes. This can probably be managed with dietary changes as an outpatient. I am stopping fingerstick blood sugars as we have not been doing much with the results. Insulin also stopped. (8) Essential hypertension: Status: Acute Assessment and plan: Blood pressure since starting on IV diltiazem is acceptable. Follow with transition to oral diltiazem plus outpatient dose of losartan and the new addition of furosemide. Subjective Subjective Interval history since last seen: He remains in A. fib and asymptomatic. With IV diltiazem his heart rate slowed into the 80s and it was stopped overnight. This morning with activity his heart rate once again goes up into the 130 range. He has received 1 dose of oral short acting diltiazem and at rest his heart rate is in the 80-90 range. He is unaware of the A. fib. He has had no chest pain. Denies shortness of breath. No fever. PICC line was placed yesterday. Blood cultures drawn after his original positive blood cultures, remain negative. Per conversation with infectious disease, if these cultures remain negative then treatment duration will be 2 weeks, start date of October 26. Exam Narrative Exam Narrative: Resting comfortably with CPAP mask on, awakens easily and is in no respiratory distress. No headache this morning. Speech clear. No facial asymmetry. Lungs clear. Irregularly irregular heart rhythm, high-pitched holosystolic murmur at the apex no S3 or S4. Nontender abdomen with normal bowel sounds. No peripheral edema. Good distal pulses. Objective Objective Clinical Data: Abnormal lab results 10/29/19 Range/Units 06:00 BUN 25 H (7-18) mg/dL Creatinine 1.32 H (0.70-1.30) mg/dL Glucose 117 H (74-106) mg/dL Vital Signs Temperature 36.6 C 10/29/19 11:46 Temperature Source Temporal Artery Scan 10/29/19 11:46 Pulse 67 10/29/19 11:01 Pulse Rhythm Irregular 10/28/19 10:15 Pulse 67 10/29/19 11:01 Respiratory Rate 16 10/29/19 09:07 Respiratory Effort Non-Labored 10/29/19 11:46 Respiratory Depth Normal 10/29/19 11:46 Respiratory Pattern Normal 10/29/19 11:46 Blood Pressure 131/74 10/29/19 11:01 Blood Pressure Mean 84 10/29/19 11:01 Blood Pressure Position Sitting 10/29/19 11:46 Pulse Oximetry 93 L 10/29/19 11:01 Respiratory End-tidal CO2 24 10/25/19 10:10 Oxygen Delivery Method Room Air 10/29/19 11:46 Oxygen Flow Rate 0 10/29/19 11:46 Fraction of Inspired Oxygen (FIO2) 21 10/29/19 10:15 Pain Level 1 10/29/19 11:46 Comment 10/28/19 10:40 Intake & Output 10/28/19 10/29/19 10/29/19 23:59 11:59 23:59 Intake Total 907.584 / 910.084 219.5 / 219.5 Output Total 1850 / 2150 1125 / 1125 Balance -942.416 / -1239.916 -905.5 / -905.5 Weight 114.8 kg Intake: IV 167.584 / 170.084 19.5 / 19.5 Oral 740 / 740 200 / 200 Output: Urine 1850 / 2150 1125 / 1125 Other: Urine Color Yellow Yellow Urine Appearance Clear Clear Urine Odor Normal Normal Comment No change. pt voided clear yellow urine to urinal at his bedside Stool Size Small Stool Characteristics Soft Mucoid Brown Voiding Methods Urinal Urinal Laboratory Results WBC 7.00 k/cumm (4.4-10.8) 10/28/19 06:15 RBC 3.90 m/cumm (4.50-6.00) L 10/28/19 06:15 Hgb 12.2 g/dL (13.5-17.5) L 10/28/19 06:15 Hct 35.4 % (40.0-50.0) L 10/28/19 06:15 MCV 90.8 fL (80-95) 10/28/19 06:15 MCH 31.3 pg (27.0-33.0) 10/28/19 06:15 MCHC 34.5 g/dL (32.0-36.0) 10/28/19 06:15 RDW 13.1 % (11.8-14.1) 10/28/19 06:15 Plt Count 304 x1000/uL (130-400) 10/28/19 06:15 MPV 9.5 fL (8.0-11.0) 10/28/19 06:15 Immature Gran % 1.0 % 10/28/19 06:15 Neutrophils % 76.0 10/28/19 06:15 Lymphocytes % 12.4 10/28/19 06:15 Monocytes % 10.1 10/28/19 06:15 Eosinophils % 0.4 10/28/19 06:15 Basophils % 0.1 10/28/19 06:15 Absolute Neutrophils 5.31 k/cumm (1.2-6.7) 10/28/19 06:15 Absolute Lymphocytes 0.87 k/cumm (1.2-3.4) L 10/28/19 06:15 Absolute Monocytes 0.71 k/cumm (0.11-0.7) H 10/28/19 06:15 Absolute Eosinophils 0.03 k/cumm (0.0-0.7) 10/28/19 06:15 Absolute Basophils 0.01 k/cumm (0.0-0.2) 10/28/19 06:15 PT 11.1 sec (9.3-11.0) H 10/25/19 07:00 INR 1.1 (0.9-1.1) 10/25/19 07:00 APTT 24.5 sec (21.0-31.4) 10/25/19 07:00 ABG Sample Site Left radial 10/25/19 17:27 ABG pH 7.45 (7.35-7.45) 10/25/19 17:27 ABG pCO2 32 mmHg (34-47) L 10/25/19 17:27 ABG pO2 69 mmHg (83-108) L 10/25/19 17:27 ABG HCO3 22 mmol/L (22-28) 10/25/19 17:27 ABG Total CO2 20 mmol/L (22-29) L 10/25/19 17:27 ABG O2 Saturation 95 % (94-98) 10/25/19 17:27 ABG Base Excess -2.2 mmol/L (-3-3) 10/25/19 17:27 VBG pH 7.40 (7.35-7.45) 10/25/19 07:00 VBG pCO2 33 mm/Hg (34-47) L 10/25/19 07:00 VBG pO2 72 mm/Hg (28-44) H 10/25/19 07:00 VBG HCO3 21 mmol/L (22-28) L 10/25/19 07:00 VBG Total CO2 19 mmol/L (22-29) L 10/25/19 07:00 VBG O2 Saturation 95 % (70-80) H 10/25/19 07:00 VBG Base Excess -4.0 mmol/L (-3-3) L 10/25/19 07:00 Oxygen Liter Flow 2 L 10/25/19 17:27 Sodium 136 mmol/L (136-145) 10/29/19 06:00 Potassium 3.6 mmol/L (3.5-5.1) 10/29/19 06:00 Chloride 101 mmol/L (98-107) 10/29/19 06:00 Carbon Dioxide 26.9 mmol/L (21.0-32.0) 10/29/19 06:00 Anion Gap 8.1 mmol/L (3-11) 10/29/19 06:00 BUN 25 mg/dL (7-18) H 10/29/19 06:00 Creatinine 1.32 mg/dL (0.70-1.30) H 10/29/19 06:00 Estimated GFR/1.73 m2 53.94 (mL/min/1.73m2) 10/29/19 06:00 Glucose 117 mg/dL (74-106) H 10/29/19 06:00 Hemoglobin A1c 6.4 % (3.8-5.6) H 10/26/19 07:00 Lactate 1.0 mmol/L (0.6-1.4) 10/26/19 07:00 Calcium 8.9 mg/dL (8.5-10.1) 10/29/19 06:00 Magnesium 2.1 mg/dL (1.8-2.4) 10/29/19 06:00 Total Bilirubin 1.2 mg/dL (0.2-1.0) H 10/26/19 07:00 AST 23 U/L (15-37) 10/26/19 07:00 ALT 45 U/L (16-63) 10/26/19 07:00 Alkaline Phosphatase 54 U/L (46-116) 10/26/19 07:00 Ammonia < 10 umol/L (11-32) L 10/25/19 07:00 Troponin I < 0.05 ng/Ml (<0.06) 10/25/19 07:00 Total Protein 6.8 g/dL (6.4-8.2) 10/26/19 07:00 Albumin 3.4 g/dL (3.4-5.0) 10/26/19 07:00 Procalcitonin 2.6 ng/mL 10/26/19 07:00 TSH 2.35 uIU/mL (0.36-3.74) 10/25/19 07:00 Urine Color Yellow (Yellow) 10/25/19 07:05 Urine Clarity Clear (Clear) 10/25/19 07:05 Urine pH 5.5 (5-8) 10/25/19 07:05 Ur Specific [place] 1.025 (1.005-1.025) 10/25/19 07:05 Urine Protein 30 mg/dL (Negative) H 10/25/19 07:05 Urine Ketones 40 mg/dL (Negative) H 10/25/19 07:05 Urine Blood Trace-intact (Negative) H 10/25/19 07:05 Urine Nitrite Negative (Negative) 10/25/19 07:05 Urine Bilirubin Negative (Negative) 10/25/19 07:05 Urine Urobilinogen 0.2 EU/dL (Up TO 0.2) 10/25/19 07:05 Ur Leukocyte Esterase Negative (Negative) 10/25/19 07:05 Urine RBC 0-2 HPF (0-2) 10/25/19 07:05 Urine WBC 0-2 HPF (0-5) 10/25/19 07:05 Ur Epithelial Cells Negative HPF (Negative) 10/25/19 07:05 Urine Crystals Negative HPF (Negative) 10/25/19 07:05 Urine Bacteria Negative HPF (Negative) 10/25/19 07:05 Urine Casts Negative LPF (Negative) 10/25/19 07:05 Urine Mucus Negative (Negative) 10/25/19 07:05 Urine Other Rare renal (Negative) 10/25/19 07:05 Ur Culture Indicated? C&s done as ordered 10/25/19 07:05 Urine Glucose 100 mg/dL (Negative) 10/25/19 07:05 Vancomycin Trough Cancelled 10/27/19 11:00 Ethyl Alcohol < 3.0 mg/dL (<3) 10/25/19 07:00 Coronavirus (PCR) Negative (Negative) 10/25/19 12:30
[2019-10-29] MEDS: dilTIAZem 30 MG TAB PO (14:29)
[2019-10-29] MEDS: dilTIAZem CD 120 MG CAPCR 240 MG PO (14:29)
[2019-10-30] VITALS (29 sets, daily range): BP systolic 109–137; BP diastolic 55–86; PULSE 60–150; RESP 11–63; TEMP 36–36.9; O2SAT 95–99
[2019-10-30] MEDS: Acetaminophen 325 MG TAB PO ×4 (00:52→20:11)
[2019-10-30] MEDS: Normal Saline Flush 10 ML SYR IVP (05:47)
[2019-10-30 05:59] LABS: HCT 37.7 % (40.0-50.0); HGB 13.3 g/dL (13.5-17.5); Mean Corp. HGB Concentration 35.3 g/dL (32.0-36.0); Mean Corpuscular Volume 90.8 fL (80-95); Mean Platelet Volume 9.2 fL (8.0-11.0); Platelet Count 351 x1000/uL (130-400); RBC 4.15 m/cumm (4.50-6.00); RBC Distribution Width 13.2 % (11.8-14.1)
[2019-10-30 06:05] LABS: Anion Gap 7.6 mmol/L (3-11); BUN 21 mg/dL (7-18); CO2 26.4 mmol/L (21.0-32.0); CREATININE 1.21 mg/dL (0.70-1.30); Calcium 9.1 mg/dL (8.5-10.1); Chloride 100 mmol/L (98-107); Estimated GFR 59.64 (mL/min/1.73m2); Glucose 128 mg/dL (74-106); Potassium 3.8 mmol/L (3.5-5.1); Sodium 134 mmol/L (136-145)
[2019-10-30] MEDS: dilTIAZem CD 300 MG CAPCR PO (07:51)
[2019-10-30] MEDS: Pantoprazole 40 MG TABCR PO (07:51)
[2019-10-30] MEDS: Furosemide 20 MG TAB PO (07:52)
[2019-10-30] MEDS: Apixaban 5 MG TAB PO ×2 (07:52→20:02)
[2019-10-30] MEDS: Allopurinol 300 MG TAB PO (07:52)
[2019-10-30] MEDS: Normal Saline Flush 10 ML SYR 20 ML IVP ×2 (07:52→20:03)
[2019-10-30] MEDS: Losartan 50 MG TAB 100 MG PO (07:52)
--- NOTE | 2019-10-30 08:45 | IN_ITS ---
Date of service: 10/30/19 Time of Service: 08:45 PT Notes Visit Reasons: SEPSIS, ALTERED MENTAL STATUS Physical Therapy Inpatient Initial Evaluation Date: 10/30/2019 Referring Doctor: Lamonte Davis MD PT Orders: PT CONSULT: Extended-stay weakness Precautions: Fall. Standard. Activity as tolerated. Patient Profile/Admitting Diagnosis: Patient is a 69-year-old male who presented to the ED on 10/25/2019 with chief presentation of altered mental status and fever. Patient is diagnosed with streptococcal bacteremia, chronic atrial fibrillation, chronic mitral valve insufficiency, sleep apnea, hyperglycemia, hyponatremia, and essential hypertension. Patient tested negative to COVID-19 as of 10/25/2019 at 18:35 PM. PMHX: Medical History GERD (gastroesophageal reflux disease) (Chronic) Gout HTN (hypertension) Hyperlipidemia Malignant melanoma October 2015, ma carmencita, central parietal scalp Prostate cancer diagnosed 2002, s/p prostatectomy Pulmonary embolism September 2017. Treated with Eliquis. Rectal cancer 04/14/12 - transanal excision, chemotherapy, radiation, no evidence of metastatic disease, colonoscopy 10/31/15 showed only diverticulosis and hemorrhoids with f/u recommended in 2 years. 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 No abnormalities found with this colonoscopy, Dr Jin recommends repeat in 3 yrs. Prostatectomy Skin Cancer Removal (~06/2015) DR. CRONIN Transanal excision rectal cancer Social History/Home Situation: Patient lives with in a private home with 4 steps to enter with rails on both sides. Patient is independent with all aspects of ADLs prior to admission. 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 He also does a lot of gardening. Equipment Owned/DME: None Subjective: Patient reports feeling a little flushed and sweaty having had to sit for breakfast which he has done for the first time since he was admitted. He said that they have adjusted medications for him and seems to be working well. He denies any headache, chest pain, and dizziness throughout PT session. He hopes to go home as soon as he is medically cleared to do so. Objective: General Observation: Telemetry in place. PICC line on. Mental Status: Alert and oriented x4 Pain: None reported Vital Signs: Heart rate fluctuations from 122 beats per minute through 185 bpm during mobility assessment ROM: Right Upper Extremity: Shoulder Flexion WFL. Shoulder abduction WFL. Elbow flexion WFL. Wrist flexion WFL. Opening and closing of hand WFL. Left Upper Extremity: Shoulder Flexion WFL. Shoulder abduction WFL. Elbow flexion WFL. Wrist flexion WFL. Opening and closing of hand WFL. Right Lower Extremity: Hip flexion WFL. Hip abduction WFL. Knee flexion WFL. Ankle dorsiflexion WFL. Ankle plantarflexion WFL. Left Lower Extremity: Hip flexion WFL. Hip abduction WFL. Knee flexion WFL. Ankle dorsiflexion WFL. Ankle plantarflexion WFL. Strength: Right Upper Extremity: Shoulder flexors 4/5. Shoulder abductors 5/5. Elbow flexors 5/5. Elbow extensors 5/5. Leather Finisher strong. Left Upper Extremity: Shoulder flexors 4/5. Shoulder abductors 5/5. Elbow flexors 5/5. Elbow extensors 5/5. Leather Finisher strong. Right Lower Extremity: Hip flexors 5/5. Hip abductors 4/5. Knee flexors 5/5. Knee extensors 5/5. Ankle dorsiflexors 5/5. Ankle plantarflexors 5/5. Left Lower Extremity:Hip flexors 5/5. Hip abductors 4/5. Knee flexors 5/5. Knee extensors 5/5. Ankle dorsiflexors 5/5. Ankle plantarflexors 5/5. Sensation: Intact as to pain and pressure on bilateral lower extremities. Bed Mobility/Transfers: Rolling independent Supine to sit independent Sit to supine independent Sit to stand supervision Stand to sit supervision Bed to chair supervision Chair to bed supervision Gait: Patient managed to do 10 steps inside ICU room with heart rate going up to 185 bpm. Supervision assist only. No assistive device needed. No complaints of headache, chest pain, and dizziness. Balance: Static Sitting: Normal Dynamic Sitting: Normal Static Standing: Good Dynamic Standing: Good 12+ Special Tests: Mobility Limitations Standardized Measure [facility] AM-PAC 6 clicks Basic Mobility Inpatient Short Form: Raw Score: 21 CMS Score: 29% deficit Informed Consent/Education: Patient instructed in purpose of PT consult and plan of care. Assessment: Patient is significantly limited with heart rate fluctuations at this time. Activity tolerance for ambulation and mobility ADL performance is decreased. Inability to negotiate steps without aggravating heart rate. Patient presents with clinical signs and symptoms consistent with current/admitting diagnoses that have resulted to mobility limitations, gait instability, generalized weakness, and impairment of motor control as demonstrated by the following impairment level findings: 1. Impaired activity tolerance 2. Heart rate fluctuations Impairments are contributing to the following functional limitations: 1. Increase completion time for mobility ADL performance 2. Inability to negotiate steps alone safely Patient is assessed as a 35447 moderate complexity based on the following: History: 69-year-old male with impairment level findings, functional limitations, and past medical history as listed above Examination: Demonstrable impairment in strength, balance, and activity tolerance with underlying impairments and functional limitations as documented above Presentation: Evolving Decision Makin moderate complexity Goals: Goals X1 week 1. Supine-Sit independent 2. Sit-Supine independent 3. Sit-Stand independent 4. Stand-Sit independent 5. Bed-Chair independent 6. Chair-Bed independent 7. Independent gait on level surface without an assistive device for at least 300 feet without report of pain nor dyspnea 8. Independent stair negotiation while holding onto bilateral rails for at least 5 steps without report of pain nor dyspnea 9. Independent with home exercise program 10. Good static and dynamic standing balance/tolerance Plan of Care/Treatment Plan: 1-2x/day, 7 days/week x 1 week. Initiate Physical Therapy intervention for strengthening, bed mobility, transfers, gait, stairs, balance training, use of assistive device. DISCHARGE RECOMMENDATIONS: Home with when medically cleared. No equipment needs at this time. TREATMENT CODE/TIME: 49372 x 31 minutes beginning at 8:45 AM. Thank you very much for this referral. Wilma Soriano PT, DPT, CLT [facility] [place], [place]
[2019-10-30] MEDS: cefTRIAXone 2 GM/50 ML BAG IVPB (10:30)
[2019-10-30] MEDS: Colchicine 0.6 MG TAB PO ×2 (10:36→20:02)
--- NOTE | 2019-10-30 11:17 | PT.INTREAT ---
Date of service: 10/30/19 Time of Service: 11:17 PT Notes Visit Reasons: SEPSIS, ALTERED MENTAL STATUS Inpatient Physical Therapy Treatment Note [facility] Date: 10/30/2019 PRECAUTIONS: Fall. Standard. Activity as tolerated. SUBJECTIVE: Denies headache, chest pain, and dizziness throughout second session for this morning. Did complain of right big toe hurting with weight bearing activity. OBJECTIVE: General Observation: Telemetry in place. PICC line on R UE. Mental Status: Alert and oriented x4 Pain: Discomofrt reported on R big toe with weight bearing BED MOBILITY/TRANSFERS Rolling L/R: Independent Supine-sit: Independent Sit-supine: Independent Sit-stand: Supervision Stand-sit: Supervision Bed-Chair: Supervision Chair-bed: Supervision GAIT Assistive Device: No assistive device Weight bearing: Full weight bearing Assist: Supervision Distance: 40 feet x 2 Deviation: Unremarkable. Vital Signs: Heart rate fluctuations from 99 beats per minute through 146 bpm during mobility performance. THEREX: Patient tolerated marching in place x 10 with heart rate ranging from 119 through 138 bpm ASSESSMENT: Patient is significantly limited with heart rate fluctuations at this time. Activity tolerance for ambulation and mobility ADL performance is decreased. Inability to negotiate steps without aggravating heart rate. PLAN: Continue with PT POC as initially established. Patient hopes to go home when medically cleared to do so. DISCHARGE RECOMMENDATIONS: Home with when medically cleared. No equipment needs at this time. TREATMENT CODE/TIME: 21874 x 38 minutes beginning at 11:17 AM.
--- NOTE | 2019-10-30 11:22 | W.PM.PROGNOT ---
Date of Service Date of service: 10/30/19 Time of Service: Assessment and Plan Assessment and plan (1) Streptococcal bacteremia: Status: Acute Assessment and plan: Strep salivarius bacteremia in / bottles from 10/25/2019. Repeat blood cultures 10/26 - NGTD. Patient denies any recent dental problems; last routine cleaning was multiple months ago. TTE without vegetations, but the read also specifically states poor resolution re anatomy of the mitral valve. Will discuss with cardiology yet again. Continue IV ceftriaxone 2 grams daily. S/p PICC 10/29/2019. Will clarify length of antibiotics given the mitral valve situation. (2) Atrial fibrillation: Status: Acute Assessment and plan: New dx on this admission. Transitioned to long acting PO cardizem. Positional changes in HR may indicate orthostasis/dehydration - will check orthostatic VS. Clinically, no fluid overload - d/c lasix. Though the patient does not a prosthetic mitral valve, apixaban may not be the right drug for him - I will discuss this with cardiology as well. (3) Mitral insufficiency: Status: Chronic Assessment and plan: Echocardiogram shows worsening, which could be concerning for endocarditis as well. Will again discuss with ID and cardiology. D/c lasix and monitor clinical volume status. (4) Sleep apnea: Status: Acute Assessment and plan: Continue CPAP. (5) Headache: Status: Acute Assessment and plan: Agree that this could be related to sleep apnea. Responds to tylenol. Will monitor. (6) Hyponatremia: Status: Resolved Assessment and plan: Continue to monitor off diuretics. (7) Hyperglycemia: Status: Acute Assessment and plan: Has prediabetes. Consult nutrition. on Carb consistent diet. (8) Essential hypertension: Status: Acute Assessment and plan: Continue PO diltiazime, losartan, (9) Gout: Status: Chronic Assessment and plan: Add colchicine to allopurinol. Likely precipitated by resumption of allopurinoal and volume shifts. (10) Discharge planning issues: Status: Acute Assessment and plan: Full code. Continues to require hospitalization. Planned to go home with outpatient infusions via, 30 day cardiac event recorder when HR controlled (11) DVT prophylaxis: Status: Acute Assessment and plan: On therapeutic eliquis Subjective Subjective Interval history since last seen: This morning, when the patient got out of bed, his HR got up to 185. He felt flushed and sweaty. The heart rate settles down when the patient lays down. He feels thirsty and has been drinking water. Denies dizziness, chest pain, shortness of breath, nausea. Complains of gout returning - states he just restarted allopurinol 2 days ago - previously better with colchicine, which was started today. Slept with BiPAP on. States had a headache this morning - resolved now. Exam Narrative Exam Narrative: General: pleasant middle-aged male, no dyspnea/tachypenea when laying flat in bed, A&Ox3; HR goes up to 90s when sits up in bed HEENT: EOMI, MMM Heart: Irregularly irregular rhythm Lungs: CTAB Abdomen: soft, nontender, nondistended Extremities: no e/c/c BLE's, 2+ pedal pulses B. R MTP joint erythema c/w gout. Objective Objective Clinical Data: Abnormal lab results 10/30/19 10/30/19 Range/Units 05:30 05:30 RBC 4.15 L (4.50-6.00) m/cumm Hgb 13.3 L (13.5-17.5) g/dL Hct 37.7 L (40.0-50.0) % Sodium 134 L (136-145) mmol/L BUN 21 H (7-18) mg/dL Glucose 128 H (74-106) mg/dL Vital Signs Temperature 36.4 C L 10/30/19 08:14 Temperature Source Temporal Artery Scan 10/30/19 08:14 Pulse 95 H 10/30/19 08:14 Pulse Rhythm Irregular 10/28/19 10:15 Pulse 88 10/30/19 04:30 Respiratory Rate 18 10/30/19 08:14 Respiratory Effort 10/30/19 08:11 Respiratory Depth Normal 10/30/19 08:11 Respiratory Pattern Normal 10/30/19 08:11 Blood Pressure 127/76 10/30/19 08:14 Blood Pressure Mean 94 10/30/19 04:30 Blood Pressure Position Supine 10/29/19 15:35 Pulse Oximetry 96 10/30/19 08:14 Respiratory End-tidal CO2 24 10/25/19 10:10 Oxygen Delivery Method Room Air 10/30/19 08:14 Oxygen Flow Rate 0 10/30/19 08:14 Fraction of Inspired Oxygen (FIO2) 21 10/30/19 08:33 Pain Level 0 10/30/19 08:14 Comment 10/30/19 01:18 Intake & Output 10/29/19 10/29/19 10/30/19 11:59 23:59 11:59 Intake Total 669.5 / 1519.5 850 / 1519.5 1200 / 1200 Output Total 1125 / 1725 600 / 1725 1875 / 1875 Balance -455.5 / -205.5 250 / -205.5 -675 / -675 Weight 114.8 kg 117.8 kg Intake: IV 69.5 / 69.5 Oral 600 / 1450 850 / 1450 1200 / 1200 Output: Urine 1125 / 1725 600 / 1725 187 / 1875 Other: Urine Color Yellow Yellow Yellow Urine Appearance Clear Clear Cloudy Urine Odor Normal Normal Normal Comment pt voided clear yellow urine to urinal at his bedside denies concerns. Stool Occult Blood Negative Stool Size Moderate Small Stool Characteristics Soft Soft Formed Brown Voiding Methods Urinal Bedside Commode Bedside Commode Laboratory Results WBC 9.30 k/cumm (4.4-10.8) 10/30/19 05:30 RBC 4.15 m/cumm (4.50-6.00) L 10/30/19 05:30 Hgb 13.3 g/dL (13.5-17.5) L 10/30/19 05:30 Hct 37.7 % (40.0-50.0) L 10/30/19 05:30 MCV 90.8 fL (80-95) 10/30/19 05:30 MCH 32.0 pg (27.0-33.0) 10/30/19 05:30 MCHC 35.3 g/dL (32.0-36.0) 10/30/19 05:30 RDW 13.2 % (11.8-14.1) 10/30/19 05:30 Plt Count 351 x1000/uL (130-400) 10/30/19 05:30 MPV 9.2 fL (8.0-11.0) 10/30/19 05:30 Immature Gran % 1.0 % 10/28/19 06:15 Neutrophils % 76.0 10/28/19 06:15 Lymphocytes % 12.4 10/28/19 06:15 Monocytes % 10.1 04/23/20 06:15 Eosinophils % 0.4 10/28/19 06:15 Basophils % 0.1 10/28/19 06:15 Absolute Neutrophils 5.31 k/cumm (1.2-6.7) 10/28/19 06:15 Absolute Lymphocytes 0.87 k/cumm (1.2-3.4) L 10/28/19 06:15 Absolute Monocytes 0.71 k/cumm (0.11-0.7) H 10/28/19 06:15 Absolute Eosinophils 0.03 k/cumm (0.0-0.7) 10/28/19 06:15 Absolute Basophils 0.01 k/cumm (0.0-0.2) 10/28/19 06:15 PT 11.1 sec (9.3-11.0) H 10/25/19 07:00 INR 1.1 (0.9-1.1) 10/25/19 07:00 APTT 24.5 sec (21.0-31.4) 10/25/19 07:00 ABG Sample Site Left radial 10/25/19 17:27 ABG pH 7.45 (7.35-7.45) 10/25/19 17:27 ABG pCO2 32 mmHg (34-47) L 10/25/19 17:27 ABG pO2 69 mmHg (83-108) L 10/25/19 17:27 ABG HCO3 22 mmol/L (22-28) 10/25/19 17:27 ABG Total CO2 20 mmol/L (22-29) L 10/25/19 17:27 ABG O2 Saturation 95 % (94-98) 10/25/19 17:27 ABG Base Excess -2.2 mmol/L (-3-3) 10/25/19 17:27 VBG pH 7.40 (7.35-7.45) 10/25/19 07:00 VBG pCO2 33 mm/Hg (34-47) L 10/25/19 07:00 VBG pO2 72 mm/Hg (28-44) H 10/25/19 07:00 VBG HCO3 21 mmol/L (22-28) L 10/25/19 07:00 VBG Total CO2 19 mmol/L (22-29) L 10/25/19 07:00 VBG O2 Saturation 95 % (70-80) H 10/25/19 07:00 VBG Base Excess -4.0 mmol/L (-3-3) L 10/25/19 07:00 Oxygen Liter Flow 2 L 10/25/19 17:27 Sodium 134 mmol/L (136-145) L 10/30/19 05:30 Potassium 3.8 mmol/L (3.5-5.1) 10/30/19 05:30 Chloride 100 mmol/L (98-107) 10/30/19 05:30 Carbon Dioxide 26.4 mmol/L (21.0-32.0) 10/30/19 05:30 Anion Gap 7.6 mmol/L (3-11) 10/30/19 05:30 BUN 21 mg/dL (7-18) H 10/30/19 05:30 Creatinine 1.21 mg/dL (0.70-1.30) 10/30/19 05:30 Estimated GFR/1.73 m2 59.64 (mL/min/1.73m2) 10/30/19 05:30 Glucose 128 mg/dL (74-106) H 10/30/19 05:30 Hemoglobin A1c 6.4 % (3.8-5.6) H 10/26/19 07:00 Lactate 1.0 mmol/L (0.6-1.4) 10/26/19 07:00 Calcium 9.1 mg/dL (8.5-10.1) 10/30/19 05:30 Magnesium 2.1 mg/dL (1.8-2.4) 10/29/19 06:00 Total Bilirubin 1.2 mg/dL (0.2-1.0) H 10/26/19 07:00 AST 23 U/L (15-37) 10/26/19 07:00 ALT 45 U/L (16-63) 10/26/19 07:00 Alkaline Phosphatase 54 U/L (46-116) 10/26/19 07:00 Ammonia < 10 umol/L (11-32) L 10/25/19 07:00 Troponin I < 0.05 ng/Ml (<0.06) 10/25/19 07:00 Total Protein 6.8 g/dL (6.4-8.2) 10/26/19 07:00 Albumin 3.4 g/dL (3.4-5.0) 10/26/19 07:00 Procalcitonin 2.6 ng/mL 10/26/19 07:00 TSH 2.35 uIU/mL (0.36-3.74) 10/25/19 07:00 Urine Color Yellow (Yellow) 10/25/19 07:05 Urine Clarity Clear (Clear) 10/25/19 07:05 Urine pH 5.5 (5-8) 10/25/19 07:05 Ur Specific Hamilton 1.025 (1.005-1.025) 10/25/19 07:05 Urine Protein 30 mg/dL (Negative) H 10/25/19 07:05 Urine Ketones 40 mg/dL (Negative) H 10/25/19 07:05 Urine Blood Trace-intact (Negative) H 10/25/19 07:05 Urine Nitrite Negative (Negative) 10/25/19 07:05 Urine Bilirubin Negative (Negative) 10/25/19 07:05 Urine Urobilinogen 0.2 EU/dL (Up TO 0.2) 10/25/19 07:05 Ur Leukocyte Esterase Negative (Negative) 10/25/19 07:05 Urine RBC 0-2 HPF (0-2) 10/25/19 07:05 Urine WBC 0-2 HPF (0-5) 10/25/19 07:05 Ur Epithelial Cells Negative HPF (Negative) 10/25/19 07:05 Urine Crystals Negative HPF (Negative) 10/25/19 07:05 Urine Bacteria Negative HPF (Negative) 10/25/19 07:05 Urine Casts Negative LPF (Negative) 10/25/19 07:05 Urine Mucus Negative (Negative) 10/25/19 07:05 Urine Other Rare renal (Negative) 10/25/19 07:05 Ur Culture Indicated? C&s done as ordered 10/25/19 07:05 Urine Glucose 100 mg/dL (Negative) 10/25/19 07:05 Vancomycin Trough Cancelled 10/27/19 11:00 Ethyl Alcohol < 3.0 mg/dL (<3) 10/25/19 07:00 Coronavirus (PCR) Negative (Negative) 10/25/19 12:30
--- NOTE | 2019-10-30 14:06 | CMPROGNOTE_ITS ---
Care Management Progress Note S/O: Ankur is sleeping soundly in the afternoon when CM attempts to meet with him. He will transition to M/S level of care today. No change to overall plan. A: Ankur is a 69 year old male admitted to [facility] on 10/25/19 for sepsis and altered mental status. P: Ankur will be discharged home with nursing home IV antibiotic therapy, outpatient at the [facility] Infusion [facility]. He will follow-up with his PCP and plan of care as directed. He will transport via private vehicle with his family. Ankur requested that CM facilitate any new medications through [employer], mail order. New prescription sent via mail/fax as well as a local prescription coordination to [facility] in [facility] for a one week supply. CM will continue to support patient and discharge planning needs.
--- NOTE | 2019-10-30 19:26 | NUR.NOTE ---
Nursing Note: 1815 10/30/19 pt transferred from icu to [facility] via bed. VSS. all belongings brought over.
--- NOTE | 2019-10-31 | DI.RAD_ITS ---
EXAM: XR PORTABLE CHEST AP POST LINE CLINICAL HISTORY: follow up position of tip of PICC line TECHNIQUE: 2D digital imaging was performed. COMPARISON: XR PORTABLE CHEST AP POST LINE from 10/28/2019 FINDINGS: MEDIASTINUM: Normal. HEART: Unchanged. PULMONARY VASCULATURE: Normal. LUNGS: No focal consolidating infiltrates. PLEURAL SPACE: No pleural effusion or pneumothorax. BONE:Normal. OTHER FINDINGS:The tip of the right PICC line is seen in the mid superior vena cava in good position. IMPRESSION: 1. Tip of the right PICC line is in good position in the mid superior vena cava. 2. No acute pulmonary process. DATA REPOSITORY: RADIATION DOSE DELIVERED:
[2019-10-31] MEDS: Acetaminophen 325 MG TAB PO (06:37)
[2019-10-31 06:59] LABS: Anion Gap 5.6 mmol/L (3-11); BUN 21 mg/dL (7-18); CO2 25.4 mmol/L (21.0-32.0); CREATININE 1.32 mg/dL (0.70-1.30); Calcium 9.2 mg/dL (8.5-10.1); Chloride 98 mmol/L (98-107); Estimated GFR 53.94 (mL/min/1.73m2); Glucose 128 mg/dL (74-106); Magnesium 2.1 mg/dL (1.8-2.4); Potassium 3.8 mmol/L (3.5-5.1); Sodium 129 mmol/L (136-145)
[2019-10-31] MEDS: Allopurinol 300 MG TAB PO (07:56)
[2019-10-31] MEDS: Losartan 50 MG TAB 100 MG PO (07:56)
[2019-10-31] MEDS: dilTIAZem CD 300 MG CAPCR PO (07:56)
[2019-10-31] MEDS: Pantoprazole 40 MG TABCR PO (07:56)
[2019-10-31] MEDS: Apixaban 5 MG TAB PO ×2 (07:56→20:01)
[2019-10-31] MEDS: Normal Saline Flush 10 ML SYR 20 ML IVP ×2 (07:57→20:01)
[2019-10-31] MEDS: Colchicine 0.6 MG TAB PO (07:58)
[2019-10-31 08:06] VITALS: BP 123/78; PULSE 66; RESP 18; TEMP 37.1; O2SAT 96
[2019-10-31 08:46] LABS: Anion Gap 6.7 mmol/L (3-11); BUN 20 mg/dL (7-18); CO2 25.3 mmol/L (21.0-32.0); CREATININE 1.41 mg/dL (0.70-1.30); Chloride 99 mmol/L (98-107); Estimated GFR 49.99 (mL/min/1.73m2); Glucose 136 mg/dL (74-106); Sodium 131 mmol/L (136-145)
--- NOTE | 2019-10-31 09:07 | CMPROGNOTE_ITS ---
Care Management Progress Note S/O: Ankur was lying in bed, watching television, tele in place when CM met with him. He verbalized understanding of his controlled heart rates overnight and expressed hoping this continues today. He reported being unable to feel or know when he enters in and out of AFIB. He reported his , Kristi is doing well, and shared pride at fixing his own phone in his room which was not working when he tried to call out to Kristi. I said to my nurse, Jamarcus, get me a screwdriver, I'll fix it! Ankur appeared to be in good spirits and verbalized understanding of his treatment plan and discharge plan, stating he anticipated only requiring about a week duration for IV ABX, as he has already completed six days inpatient. CM continues to follow. A: Ankur is a 69 year old male admitted to [facility] on 10/25/19 for sepsis and altered mental status. P: Ankur will be discharged home with terminal carman IV antibiotic therapy, outpatie nt at the [facility] Infusion [facility]. He will follow-up with his PCP and plan of care as directed. He will transport via private vehicle with his family. Ankur requested that CM facilitate any new medications through [employer], mail order. New prescription will need to be sent via mail/fax as well as local prescription coordination to [facility] for a one week supply. Ankur reported his , Kristi, could provide contact information for [employer] (call/fax) to support coordination.
[2019-10-31] MEDS: cefTRIAXone 2 GM/50 ML BAG IVPB (10:08)
[2019-10-31] MEDS: Normal Saline Flush 10 ML SYR IVP (10:08)
[2019-10-31 11:07] VITALS: BP 122/73; PULSE 81; RESP 18; TEMP 36.8; O2SAT 95
--- NOTE | 2019-10-31 11:53 | PTTR_ITS ---
Date of service: 10/31/19 Time of Service: 11:17 PT Notes Visit Reasons: SEPSIS, ALTERED MENTAL STATUS Inpatient Physical Therapy Treatment Note [facility] Date: 10/31/2019 PRECAUTIONS: Standard. Activity as tolerated. SUBJECTIVE: Denies headache, chest pain, and dizziness throughout for both sessions. Denies R big toe pain today. OBJECTIVE: General Observation: Telemetry remains in place Mental Status: Alert and oriented x4 Pain: None reported BED MOBILITY/TRANSFERS Rolling L/R: Independent Supine-sit: Independent Sit-supine: Independent Sit-stand: Independent Stand-sit: Independent Bed-Chair: Independent Chair-bed: Independent GAIT Assistive Device: No assistive device Weight bearing: Full weight bearing Assist: Supervision Distance: Session 1??100 feet +150 feet. Session to 100 feet +150 feet + 150 feet. Deviation: Unremarkable. Vital Signs: Session 1??heart rate ranged from the 80s to 140s throughout with re-stabilization back to the 80s and 90s within 1 to 2 minutes after activity. Session 2??heart rate ranged from 80s to 120s throughout re-stabilization back to the 80s and 90s within less than a minute minutes after activity. STAIRS: Session 1??patient tolerated up-and-down nine 4-inch steps and six 6- inch steps with one hand holding onto rail with a heart rate ranging from the 80s and spiking up to the 140s but re-stabilizing back to the 80s and 90s within less than a minute after activity performance. Session 2??Patient tolerated eighteen 4-inch steps and twelve 6-inch steps with heart rate ranging from the 80s to the 100 spiking up to the 120s but re-stabilizing back down to the 80s and 90s within less than a minute. ASSESSMENT: Patient is demonstrating less spike and heart rate with activity as compared to yesterday. He also is able to re-stabilize back to within normal limits a lot faster than he did yesterday. He remains asymptomatic denying headache, chest pain, and dizziness throughout any of mobility activities performed for both sessions today. PLAN: Continue with PT POC as initially established. Patient hopes to go home when medically cleared to do so. DISCHARGE RECOMMENDATIONS: Home with when medically cleared. No equipment needs at this time. TREATMENT CODE/TIME: Session 1??88881 x 28 minutes beginning at 9:42 AM. Session 2??[id number] x 31 minutes beginning at 11:17 AM.
--- NOTE | 2019-10-31 13:08 | DI.VRAD_ITS ---
PROCEDURE INFORMATION: Exam: XR Chest, 1 View Exam date and time: 10/31/2019 12:19 PM Age: 69 years old Clinical indication: Device placement; Picc TECHNIQUE: Imaging protocol: XR of the chest Views: 1 view. COMPARISON: CR XR PORTABLE CHEST AP POST LINE 10/28/2019 3:55 PM FINDINGS: Right-sided PICC line with tip projecting over the mid superior vena cava. Diffuse interstitial lung disease most likely representing interstitial scarring. No significant focal consolidations. Mild cardiomegaly unchanged. IMPRESSION: Right-sided PICC line in good position. Dictated and Authenticated by: Eric Davila MD. Ordering:MAGDIEL Mckee MD
--- NOTE | 2019-10-31 13:18 | W.PM.PROGNOT ---
Date of Service Date of service: 10/31/19 Time of Service: 13:18 Assessment and Plan Assessment and plan (1) Streptococcal bacteremia: Status: Acute Assessment and plan: Strep salivarius bacteremia in / bottles from 10/25/2019. Repeat blood cultures 10/26 - NGTD. Source of entry - likely the oral sores the patient described today. TTE without vegetations, but the read also specifically states poor resolution re anatomy of the mitral valve. Will discuss with cardiology. Continue IV ceftriaxone 2 grams daily. S/p PICC 10/29/2019 - position of tip confirmed to be adequate. Will clarify length of antibiotics given the mitral valve situation. (2) Atrial fibrillation: Status: Acute Assessment and plan: New dx on this admission. HR uncontrolled with activity - will add short acting cardizem with holding parameters and increase long acting to 360 mg starting tomorrow. I do not think that the patient cant tolerate diuresis. PICC line's tip is now in good position and is unlikely to be causing the HR to go up. Though the patient does not a prosthetic mitral valve, apixaban may not be the right drug for him - will discuss with cardiology. (3) Mitral insufficiency: Status: Chronic Assessment and plan: Echocardiogram shows worsening, which could be concerning for endocarditis as well. Will again discuss with ID and cardiology. Monitor clinical volume status. (4) Sleep apnea: Status: Acute Assessment and plan: Continue CPAP. (5) Headache: Status: Acute Assessment and plan: Agree that this could be related to sleep apnea. Responds to tylenol. Will monitor. (6) Hyponatremia: Status: Resolved Assessment and plan: Continue to monitor off diuretics. (7) Hyperglycemia: Status: Acute Assessment and plan: Has prediabetes. Consult nutrition. on Carb consistent diet. (8) Essential hypertension: Status: Acute Assessment and plan: Continue PO diltiazime, losartan, (9) Gout: Status: Chronic Assessment and plan: Improved; decrease colchicine to daily; continue allopurinol. (10) Discharge planning issues: Status: Acute Assessment and plan: Full code. Continues to require hospitalization. Planned to go home with outpatient infusions via, 30 day cardiac event recorder when HR controlled (11) DVT prophylaxis: Status: Acute Assessment and plan: On therapeutic eliquis Subjective Subjective Interval history since last seen: Mr Roque states that he is feeling tired. He now remembers having sores in his mouth a couple of weeks ago and is wondering if that could be related to his current infection. His HR went up to 140 when ambulating, but there have been no 180's recorded (like yesterday). At rest, His HR is 70-80. He denies having any symptoms while exerting himself or at rest, including dizziness, chest pain, palpiations, shortness of breath, nausea. Gouty toe feels better. Exam Narrative Exam Narrative: General: pleasant middle-aged male, very comfortably sitting up in bed, A&Ox3 HEENT: EOMI, MMM Heart: Irregularly irregular rhythm Lungs: CTAB Abdomen: soft, nontender, nondistended Extremities: no edema BLE's. Objective Objective Clinical Data: Abnormal lab results 10/31/19 10/31/19 Range/Units 06:15 08:29 Sodium 129 L 131 L (136-145) mmol/L BUN 21 H 20 H (7-18) mg/dL Creatinine 1.32 H 1.41 H (0.70-1.30) mg/dL Glucose 128 H 136 H (74-106) mg/dL Vital Signs Temperature 36.8 C 10/31/19 11:07 Temperature Source Temporal Artery Scan 10/31/19 11:07 Pulse 81 10/31/19 11:07 Pulse Rhythm Irregular 10/31/19 08:18 Pulse 103 H 10/30/19 18:00 Respiratory Rate 18 10/31/19 11:07 Respiratory Effort 10/31/19 08:18 Respiratory Depth Normal 10/31/19 08:18 Respiratory Pattern Normal 10/31/19 08:18 Blood Pressure 122/73 10/31/19 11:07 Blood Pressure Mean 73 10/30/19 17:52 Blood Pressure Position Supine 10/29/19 15:35 Pulse Oximetry 95 10/31/19 11:07 Respiratory End-tidal CO2 24 10/25/19 10:10 Oxygen Delivery Method Room Air 10/31/19 11:07 Oxygen Flow Rate 0 10/31/19 11:07 Fraction of Inspired Oxygen (FIO2) 21 10/31/19 08:40 Pain Level 0 10/31/19 11:07 Comment 10/30/19 01:18 Intake & Output 10/30/19 10/31/19 10/31/19 23:59 11:59 23:59 Intake Total 600 / 1850 700 / 700 Output Total 450 / 2325 Balance 150 / -475 700 / 700 Intake: Oral 600 / 1800 700 / 700 Output: Urine 450 / 2325 Other: Urine Color Yellow Yellow Urine Appearance Clear Clear Laboratory Results WBC 9.30 k/cumm (4.4-10.8) 10/30/19 05:30 RBC 4.15 m/cumm (4.50-6.00) L 10/30/19 05:30 Hgb 13.3 g/dL (13.5-17.5) L 10/30/19 05:30 Hct 37.7 % (40.0-50.0) L 10/30/19 05:30 MCV 90.8 fL (80-95) 10/30/19 05:30 MCH 32.0 pg (27.0-33.0) 10/30/19 05:30 MCHC 35.3 g/dL (32.0-36.0) 10/30/19 05:30 RDW 13.2 % (11.8-14.1) 10/30/19 05:30 Plt Count 351 x1000/uL (130-400) 10/30/19 05:30 MPV 9.2 fL (8.0-11.0) 10/30/19 05:30 Immature Gran % 1.0 % 10/28/19 06:15 Neutrophils % 76.0 10/28/19 06:15 Lymphocytes % 12.4 10/28/19 06:15 Monocytes % 10.1 10/28/19 06:15 Eosinophils % 0.4 10/28/19 06:15 Basophils % 0.1 10/28/19 06:15 Absolute Neutrophils 5.31 k/cumm (1.2-6.7) 10/28/19 06:15 Absolute Lymphocytes 0.87 k/cumm (1.2-3.4) L 10/28/19 06:15 Absolute Monocytes 0.71 k/cumm (0.11-0.7) H 10/28/19 06:15 Absolute Eosinophils 0.03 k/cumm (0.0-0.7) 10/28/19 06:15 Absolute Basophils 0.01 k/cumm (0.0-0.2) 10/28/19 06:15 PT 11.1 sec (9.3-11.0) H 10/25/19 07:00 INR 1.1 (0.9-1.1) 10/25/19 07:00 APTT 24.5 sec (21.0-31.4) 10/25/19 07:00 ABG Sample Site Left radial 10/25/19 17: ABG pH 7.45 (7.35-7.45) 10/25/19 17: ABG pCO2 32 mmHg (34-47) L 10/25/19 17: ABG pO2 69 mmHg (83-108) L 10/25/19 17: ABG HCO3 22 mmol/L (22-28) 10/25/19 17: ABG Total CO2 20 mmol/L (22-29) L 10/25/19 17: ABG O2 Saturation 95 % (94-98) 10/25/19 17: ABG Base Excess -2.2 mmol/L (-3-3) 10/25/19 17: VBG pH 7.40 (7.35-7.45) 10/25/19 07:00 VBG pCO2 33 mm/Hg (34-47) L 10/25/19 07:00 VBG pO2 72 mm/Hg (28-44) H 10/25/19 07:00 VBG HCO3 21 mmol/L (22-28) L 10/25/19 07:00 VBG Total CO2 19 mmol/L (22-29) L 10/25/19 07:00 VBG O2 Saturation 95 % (70-80) H 10/25/19 07:00 VBG Base Excess -4.0 mmol/L (-3-3) L 10/25/19 07:00 Oxygen Liter Flow 2 L 10/25/19 17: Sodium 131 mmol/L (136-145) L 10/31/19 08:29 Potassium 4.0 mmol/L (3.5-5.1) 10/31/19 08:29 Chloride 99 mmol/L (98-107) 10/31/19 08:29 Carbon Dioxide 25.3 mmol/L (21.0-32.0) 10/31/19 08:29 Anion Gap 6.7 mmol/L (3-11) 10/31/19 08:29 BUN 20 mg/dL (7-18) H 10/31/19 08:29 Creatinine 1.41 mg/dL (0.70-1.30) H 10/31/19 08:29 Estimated GFR/1.73 m2 49.99 (mL/min/1.73m2) 10/31/19 08:29 Glucose 136 mg/dL (74-106) H 10/31/19 08:29 Hemoglobin A1c 6.4 % (3.8-5.6) H 10/26/19 07:00 Lactate 1.0 mmol/L (0.6-1.4) 10/26/19 07:00 Calcium 9.0 mg/dL (8.5-10.1) 10/31/19 08:29 Magnesium 2.1 mg/dL (1.8-2.4) 10/31/19 06:15 Total Bilirubin 1.2 mg/dL (0.2-1.0) H 10/26/19 07:00 AST 23 U/L (15-37) 10/26/19 07:00 ALT 45 U/L (16-63) 10/26/19 07:00 Alkaline Phosphatase 54 U/L (46-116) 10/26/19 07:00 Ammonia < 10 umol/L (11-32) L 10/25/19 07:00 Troponin I < 0.05 ng/Ml (<0.06) 10/25/19 07:00 Total Protein 6.8 g/dL (6.4-8.2) 10/26/19 07:00 Albumin 3.4 g/dL (3.4-5.0) 10/26/19 07:00 Procalcitonin 2.6 ng/mL 10/26/19 07:00 TSH 2.35 uIU/mL (0.36-3.74) 10/25/19 07:00 Urine Color Yellow (Yellow) 10/25/19 07:05 Urine Clarity Clear (Clear) 10/25/19 07:05 Urine pH 5.5 (5-8) 10/25/19 07:05 Ur Specific [place] 1.025 (1.005-1.025) 10/25/19 07:05 Urine Protein 30 mg/dL (Negative) H 10/25/19 07:05 Urine Ketones 40 mg/dL (Negative) H 10/25/19 07:05 Urine Blood Trace-intact (Negative) H 10/25/19 07:05 Urine Nitrite Negative (Negative) 10/25/19 07:05 Urine Bilirubin Negative (Negative) 10/25/19 07:05 Urine Urobilinogen 0.2 EU/dL (Up TO 0.2) 10/25/19 07:05 Ur Leukocyte Esterase Negative (Negative) 10/25/19 07:05 Urine RBC 0-2 HPF (0-2) 10/25/19 07:05 Urine WBC 0-2 HPF (0-5) 10/25/19 07:05 Ur Epithelial Cells Negative HPF (Negative) 10/25/19 07:05 Urine Crystals Negative HPF (Negative) 10/25/19 07:05 Urine Bacteria Negative HPF (Negative) 10/25/19 07:05 Urine Casts Negative LPF (Negative) 10/25/19 07:05 Urine Mucus Negative (Negative) 10/25/19 07:05 Urine Other Rare renal (Negative) 10/25/19 07:05 Ur Culture Indicated? C&s done as ordered 10/25/19 07:05 Urine Glucose 100 mg/dL (Negative) 10/25/19 07:05 Vancomycin Trough Cancelled 10/27/19 11:00 Ethyl Alcohol < 3.0 mg/dL (<3) 10/25/19 07:00 Coronavirus (PCR) Negative (Negative) 10/25/19 12:30 Objective Narrative Objective Narrative: CXR: Right-sided PICC line in good position.
[2019-10-31] MEDS: dilTIAZem 30 MG TAB PO ×2 (13:29→20:01)
[2019-10-31 15:20] VITALS: BP 140/88; PULSE 61; RESP 19; TEMP 36.6; O2SAT 100
[2019-10-31 19:10] VITALS: BP 161/67; PULSE 72; RESP 20; TEMP 36.4; O2SAT 97
[2019-10-31 22:56] VITALS: BP 134/87; PULSE 68; RESP 18; TEMP 36.1; O2SAT 97
[2019-11-01 03:19] VITALS: BP 109/67; PULSE 57; RESP 20; TEMP 37.3; O2SAT 99
[2019-11-01] MEDS: Normal Saline Flush 10 ML SYR IVP (06:26)
[2019-11-01 06:52] LABS: Abs Immature Grans 0.06 k/cumm (0.0-0.09); Absolute Basophil Count 0.01 k/cumm (0.0-0.2); Absolute Eosinophil Count 0.21 k/cumm (0.0-0.7); Absolute Lymphocyte Count 1.15 k/cumm (1.2-3.4); Absolute Monocyte Count 0.53 k/cumm (0.11-0.7); Absolute Neutrophil Count 4.43 k/cumm (1.2-6.7); Basophils % 0.2; Eosinophils % 3.3; HCT 36.9 % (40.0-50.0); HGB 12.5 g/dL (13.5-17.5); Immature Grans % 0.9 %; Mean Corp. HGB Concentration 33.9 g/dL (32.0-36.0); Mean Corpuscular Hemoglobin 31.5 pg (27.0-33.0); Mean Corpuscular Volume 92.9 fL (80-95); Mean Platelet Volume 9.3 fL (8.0-11.0); Monocytes % 8.3; Neutrophils % 69.3; Platelet Count 323 x1000/uL (130-400); RBC 3.97 m/cumm (4.50-6.00); RBC Distribution Width 13.4 % (11.8-14.1); White Blood Cell Count 6.39 k/cumm (4.4-10.8)
[2019-11-01 07:22] LABS: Anion Gap 6.9 mmol/L (3-11); BUN 22 mg/dL (7-18); C-Reactive Protein 1.05 mg/dL (0.0-0.3); CO2 26.1 mmol/L (21.0-32.0); CREATININE 1.34 mg/dL (0.70-1.30); Calcium 9.1 mg/dL (8.5-10.1); Chloride 102 mmol/L (98-107); Estimated GFR 53.01 (mL/min/1.73m2); Glucose 113 mg/dL (74-106); Magnesium 2.2 mg/dL (1.8-2.4); Potassium 4.5 mmol/L (3.5-5.1); Sodium 135 mmol/L (136-145)
[2019-11-01] MEDS: Pantoprazole 40 MG TABCR PO (07:41)
[2019-11-01 07:45] VITALS: BP 128/86; PULSE 55; RESP 16; TEMP 36.7; O2SAT 99
[2019-11-01] MEDS: Normal Saline Flush 10 ML SYR 20 ML IVP ×2 (08:02→19:42)
[2019-11-01] MEDS: Apixaban 5 MG TAB PO ×2 (08:03→19:41)
[2019-11-01] MEDS: Allopurinol 300 MG TAB PO (08:03)
[2019-11-01] MEDS: dilTIAZem CD 180 MG CAPCR 360 MG PO (08:03)
[2019-11-01] MEDS: Losartan 50 MG TAB 100 MG PO (08:03)
[2019-11-01] MEDS: Colchicine 0.6 MG TAB PO (08:03)
[2019-11-01] MEDS: cefTRIAXone 2 GM/50 ML BAG IVPB (09:55)
--- NOTE | 2019-11-01 12:19 | PDOC.CMPRO ---
- If Service Date Differs Date of service: 11/01/19 Time of Service: 12:19 Care Management Progress Note S/O: Ankur was sitting up in a chair in good spirits when CM met with him. He stated that he continues to feel well and that his only issue is the rapid heart rate that occurs with activity. He shared that this morning his heart rate exceeded 160 when he got OOB but that when he rode the bike in PT for 15 minutes, it stayed in the 120's. He shared that he will likely be seen by Cardiology again, per provider, if this continues. Ankur mentioned that per RT, he may be able to obtain a new CPAP machine. He stated his is very old and he understands that the newer models are more efficient. he was advised by RT to contact [facility], the provider of his old machine. . A: Ankur is a 69 year old male admitted to [facility] on 10/25/19 for sepsis and altered mental status. 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 He will follow-up with his PCP and plan of care as directed. He will transport via private vehicle with his family. Ankur requested that CM facilitate any new medications through [employer] mail order. New prescription will need to be sent via mail/fax as well as local prescription coordination to [facility] in [facility] for a one week supply. Ankur provided [employer] ID # which is [id number]. The phone number is .
--- NOTE | 2019-11-01 14:12 | PTTR_ITS ---
Date of service: 11/01/19 Time of Service: 14:12 PT Notes Visit Reasons: SEPSIS, ALTERED MENTAL STATUS Inpatient Physical Therapy Treatment Note [facility] Date: 11/01/2019 PRECAUTIONS: Standard. Activity as tolerated. SUBJECTIVE: Patient states that he started off this morning with a headache but said that it eventually subsided and did not need pain medication. He voiced his concern about having a short-lived HR in the 30s while he was sleeping (nurse reported to him about this when he woke up this morning). Denies chest pain, and dizziness throughout for both sessions. Denies R big toe pain today. OBJECTIVE: General Observation: Telemetry remains in place. PICC line on R brachium. Mental Status: Alert and oriented x4 Pain: None reported BED MOBILITY/TRANSFERS Rolling L/R: Independent Supine-sit: Independent Sit-supine: Independent Sit-stand: Independent Stand-sit: Independent Bed-Chair: Independent Chair-bed: Independent GAIT Assistive Device: No assistive device Weight bearing: Full weight bearing Assist: Supervision Distance: Session 1??100 feet +100 feet. Session 2-?100 feet + 100 feet. Deviation: Unremarkable. Vital Signs: Session 1??heart rate ranged from the 70s to 120s with re- stabilization within less than 1 minute after activity. Session 2??heart rate ranged from 70s to 100s with re-stabilization within less than a minute after activity. STAIRS: Patient tolerated up and down three 4-inch steps and two 6-inch steps while holding onto 1 rail with HR in the 100s. [employer] BIKE SYSTEM: Session 1??patient tolerated 5 rounds of 3-minute sessions of cycling with the resistance at 6 with heart rate ranging from 79 to 136 bpm but without symptoms with re-stabilization to the 80s within 1 to 2 minutes after activity. Session 2??patient tolerated 1 round of 5 minutes of cycling with a resistance of 6 with heart rate in the 70s to 100s with restabilization back to the 80s within less than a minute without symptoms. STEPPING EXERCISES: Patient was able to tolerate 2 minutes of stepping exercises using the 6-inch high step with both hands holding onto bilateral rails with heart rate ranging from the 90s through 126 bpm with re-stabilization back to the 80s within 1 to 2 minutes after activity. ASSESSMENT: Patient continues to demonstrate better heart rate control and narrower heart rate differential with increasing activity level. Speed of heart rate re-stabilization has also comparatively increased. He remains asymptomatic, denying headache/chest pain/and dizziness throughout any of mo bility activities performed for both sessions today. PLAN: Continue with PT POC as initially established. Patient hopes to go home when medically cleared to do so. DISCHARGE RECOMMENDATIONS: Home with when medically cleared. No equipment needs at this time. TREATMENT CODE/TIME: Session 1??64370 x 15 minutes, [id number] x 27 minutes beginning at 9:10 AM. Session 2??81889 x 23 minutes beginning at 14:12 PM.
--- NOTE | 2019-11-01 15:13 | W.PM.PROGNOT ---
Date of Service Date of service: 11/01/19 Time of Service: 15:13 Assessment and Plan Assessment and plan (1) Streptococcal bacteremia: Status: Acute Assessment and plan: Strep salivarius bacteremia in / bottles from 10/25/2019. Repeat blood cultures 10/26 - NGTD. Source of entry - likely the oral sores the patient described today. TTE without vegetations. Discussed with cardiology - mitral valve was unchanged in the latest echo, and endocarditis is deemed less likely. The patient will need a total of a 14 day course from the first negative blood culture. Continue IV ceftriaxone 2 grams daily. S/p PICC 10/29/2019 - position of tip confirmed to be adequate. (2) Atrial fibrillation: Status: Acute Assessment and plan: New dx on this admission. Doing well today with cardizem 360 mg daily. Will monitor overnight to ensure no bradycardia and discharge home tomorrow with a cardiac event recorder. Discussed choice of anticoagulation with Dr Bosch - because we do not know the timing of the CVA on MRI, and it could well have preceded the initiation of apixaban, it is likely safe to continue apixaban. (3) Mitral insufficiency: Status: Chronic Assessment and plan: Echocardiogram does NOT show worsening, per cardiology. Will need to follow up with CT surgery team at [facility]. Monitor clinical volume status. (4) Sleep apnea: Status: Acute Assessment and plan: Continue CPAP. (5) Headache: Status: Acute Assessment and plan: Agree that this could be related to sleep apnea. Responds to tylenol. Will monitor. (6) Hyponatremia: Status: Resolved Assessment and plan: Continue to monitor off diuretics. (7) Hyperglycemia: Status: Acute Assessment and plan: Has prediabetes. Consult nutrition. on Carb consistent diet. (8) Essential hypertension: Status: Acute Assessment and plan: Continue PO diltiazime, losartan, (9) Gout: Status: Chronic Assessment and plan: Improved; Continue daily colchicine; continue allopurinol. (10) Discharge planning issues: Status: Acute Assessment and plan: Full code. Planned to go home with outpatient infusions via, 30 day cardiac event recorder when HR controlled Plan for discharge home tomorrow. (11) DVT prophylaxis: Status: Acute Assessment and plan: On therapeutic eliquis Subjective Subjective Interval history since last seen: Other than feeling a little bit tired this morning when he first woke up (having worne bipap), Mr Roque is feeling quite well today. He denies dizziness, chest pain, shortness of breath, nausea, vomiting. He did not have heart rate spikes today with exertion. HR overnight was in the 60s-70's. He reports a rash on his back. He feels ready to go home tomorrow. Exam Narrative Exam Narrative: General: pleasant middle-aged male, very comfortably sitting up in bed, A&Ox3 HEENT: EOMI, MMM Heart: Irregularly irregular rhythm Lungs: CTAB Abdomen: soft, nontender, nondistended Extremities: no edema BLE's. Skin: papular rash c/w hypersensitivity dermatitis Objective Objective Clinical Data: Abnormal lab results 11/01/19 11/01/19 Range/Units 06:35 06:35 RBC 3.97 L (4.50-6.00) m/cumm Hgb 12.5 L (13.5-17.5) g/dL Hct 36.9 L (40.0-50.0) % Absolute Lymphocytes 1.15 L (1.2-3.4) k/cumm Sodium 135 L (136-145) mmol/L BUN 22 H (7-18) mg/dL Creatinine 1.34 H (0.70-1.30) mg/dL Glucose 113 H (74-106) mg/dL C-Reactive Protein 1.05 H (0.0-0.3) mg/dL Vital Signs Temperature 36.7 C 11/01/19 07:45 Temperature Source Temporal Artery Scan 11/01/19 07:45 Pulse 55 L 11/01/19 07:45 Pulse Rhythm Irregular 11/01/19 09:16 Pulse 103 H 10/30/19 18:00 Respiratory Rate 16 11/01/19 07:45 Respiratory Effort 11/01/19 09:16 Respiratory Depth Normal 11/01/19 09:16 Respiratory Pattern Normal 11/01/19 09:16 Blood Pressure 128/86 11/01/19 07:45 Blood Pressure Mean 73 10/30/19 17:52 Blood Pressure Position Supine 10/29/19 15:35 Pulse Oximetry 99 11/01/19 07:45 Respiratory End-tidal CO2 24 10/25/19 10:10 Oxygen Delivery Method Room Air 11/01/19 07:45 Oxygen Flow Rate 0 11/01/19 07:45 Fraction of Inspired Oxygen (FIO2) 21 11/01/19 10:31 Pain Level 0 11/01/19 07:45 Comment 10/30/19 01:18 Intake & Output 10/31/19 11/01/19 11/01/19 23:59 11:59 23:59 Intake Total 790 / 1490 350 / 590 240 / 590 Balance 790 / 1490 350 / 590 240 / 590 Weight 114.9 kg Intake: IV 50 / 50 Oral 790 / 1490 300 / 540 240 / 540 Other: Urine Color Yellow Urine Appearance Clear Clear Comment denies /GI issues, reports BM earlier today voids independantly in toilet Stool Size Moderate Stool Characteristics Soft Brown Voiding Methods Toilet Laboratory Results WBC 6.39 k/cumm (4.4-10.8) 11/01/19 06:35 RBC 3.97 m/cumm (4.50-6.00) L 11/01/19 06:35 Hgb 12.5 g/dL (13.5-17.5) L 11/01/19 06:35 Hct 36.9 % (40.0-50.0) L 11/01/19 06:35 MCV 92.9 fL (80-95) 11/01/19 06:35 MCH 31.5 pg (27.0-33.0) 11/01/19 06:35 MCHC 33.9 g/dL (32.0-36.0) 11/01/19 06:35 RDW 13.4 % (11.8-14.1) 11/01/19 06:35 Plt Count 323 x1000/uL (130-400) 11/01/19 06:35 MPV 9.3 fL (8.0-11.0) 11/01/19 06:35 Immature Gran % 0.9 % 11/01/19 06:35 Neutrophils % 69.3 11/01/19 06:35 Lymphocytes % 18.0 11/01/19 06:35 Monocytes % 8.3 11/01/19 06:35 Eosinophils % 3.3 11/01/19 06:35 Basophils % 0.2 11/01/19 06:35 Absolute Neutrophils 4.43 k/cumm (1.2-6.7) 11/01/19 06:35 Absolute Lymphocytes 1.15 k/cumm (1.2-3.4) L 11/01/19 06:35 Absolute Monocytes 0.53 k/cumm (0.11-0.7) 11/01/19 06:35 Absolute Eosinophils 0.21 k/cumm (0.0-0.7) 11/01/19 06:35 Absolute Basophils 0.01 k/cumm (0.0-0.2) 11/01/19 06:35 PT 11.1 sec (9.3-11.0) H 10/25/19 07:00 INR 1.1 (0.9-1.1) 10/25/19 07:00 APTT 24.5 sec (21.0-31.4) 10/25/19 07:00 ABG Sample Site Left radial 10/25/19 17:27 ABG pH 7.45 (7.35-7.45) 10/25/19 17: ABG pCO2 32 mmHg (34-47) L 10/25/19 17: ABG pO2 69 mmHg (83-108) L 10/25/19 17:27 ABG HCO3 22 mmol/L (22-28) 10/25/19 17: ABG Total CO2 20 mmol/L (22-29) L 10/25/19 17: ABG O2 Saturation 95 % (94-98) 10/25/19 17: ABG Base Excess -2.2 mmol/L (-3-3) 10/25/19 17: VBG pH 7.40 (7.35-7.45) 10/25/19 07:00 VBG pCO2 33 mm/Hg (34-47) L 10/25/19 07:00 VBG pO2 72 mm/Hg (28-44) H 10/25/19 07:00 VBG HCO3 21 mmol/L (22-28) L 10/25/19 07:00 VBG Total CO2 19 mmol/L (22-29) L 10/25/19 07:00 VBG O2 Saturation 95 % (70-80) H 10/25/19 07:00 VBG Base Excess -4.0 mmol/L (-3-3) L 10/25/19 07:00 Oxygen Liter Flow 2 L 10/25/19 17:27 Sodium 135 mmol/L (136-145) L 11/01/19 06:35 Potassium 4.5 mmol/L (3.5-5.1) 11/01/19 06:35 Chloride 102 mmol/L (98-107) 11/01/19 06:35 Carbon Dioxide 26.1 mmol/L (21.0-32.0) 11/01/19 06:35 Anion Gap 6.9 mmol/L (3-11) 11/01/19 06:35 BUN 22 mg/dL (7-18) H 11/01/19 06:35 Creatinine 1.34 mg/dL (0.70-1.30) H 11/01/19 06:35 Estimated GFR/1.73 m2 53.01 (mL/min/1.73m2) 11/01/19 06:35 Glucose 113 mg/dL (74-106) H 11/01/19 06:35 Hemoglobin A1c 6.4 % (3.8-5.6) H 10/26/19 07:00 Lactate 1.0 mmol/L (0.6-1.4) 10/26/19 07:00 Calcium 9.1 mg/dL (8.5-10.1) 11/01/19 06:35 Magnesium 2.2 mg/dL (1.8-2.4) 11/01/19 06:35 Total Bilirubin 1.2 mg/dL (0.2-1.0) H 10/26/19 07:00 AST 23 U/L (15-37) 10/26/19 07:00 ALT 45 U/L (16-63) 10/26/19 07:00 Alkaline Phosphatase 54 U/L (46-116) 10/26/19 07:00 Ammonia < 10 umol/L (11-32) L 10/25/19 07:00 Troponin I < 0.05 ng/Ml (<0.06) 10/25/19 07:00 C-Reactive Protein 1.05 mg/dL (0.0-0.3) H 11/01/19 06:35 Total Protein 6.8 g/dL (6.4-8.2) 10/26/19 07:00 Albumin 3.4 g/dL (3.4-5.0) 10/26/19 07:00 Procalcitonin 2.6 ng/mL 10/26/19 07:00 TSH 2.35 uIU/mL (0.36-3.74) 10/25/19 07:00 Urine Color Yellow (Yellow) 10/25/19 07:05 Urine Clarity Clear (Clear) 10/25/19 07:05 Urine pH 5.5 (5-8) 10/25/19 07:05 Ur Specific [place] 1.025 (1.005-1.025) 10/25/19 07:05 Urine Protein 30 mg/dL (Negative) H 10/25/19 07:05 Urine Ketones 40 mg/dL (Negative) H 10/25/19 07:05 Urine Blood Trace-intact (Negative) H 10/25/19 07:05 Urine Nitrite Negative (Negative) 10/25/19 07:05 Urine Bilirubin Negative (Negative) 10/25/19 07:05 Urine Urobilinogen 0.2 EU/dL (Up TO 0.2) 10/25/19 07:05 Ur Leukocyte Esterase Negative (Negative) 10/25/19 07:05 Urine RBC 0-2 HPF (0-2) 10/25/19 07:05 Urine WBC 0-2 HPF (0-5) 10/25/19 07:05 Ur Epithelial Cells Negative HPF (Negative) 10/25/19 07:05 Urine Crystals Negative HPF (Negative) 10/25/19 07:05 Urine Bacteria Negative HPF (Negative) 10/25/19 07:05 Urine Casts Negative LPF (Negative) 10/25/19 07:05 Urine Mucus Negative (Negative) 10/25/19 07:05 Urine Other Rare renal (Negative) 10/25/19 07:05 Ur Culture Indicated? C&s done as ordered 10/25/19 07:05 Urine Glucose 100 mg/dL (Negative) 10/25/19 07:05 Vancomycin Trough Cancelled 10/27/19 11:00 Ethyl Alcohol < 3.0 mg/dL (<3) 10/25/19 07:00 Coronavirus (PCR) Negative (Negative) 10/25/19 12:30
[2019-11-01 15:20] VITALS: BP 129/77; PULSE 69; RESP 19; TEMP 36.4; O2SAT 97
[2019-11-01 18:55] VITALS: BP 157/89; PULSE 77; RESP 20; TEMP 36.1; O2SAT 99
[2019-11-01] MEDS: Hydrocortisone 1% CR 30 GM TUBE TP (19:41)
[2019-11-01 23:27] VITALS: BP 134/73; PULSE 82; RESP 19; TEMP 37.4; O2SAT 97
[2019-11-02] VITALS (8 sets, daily range): BP systolic 113–135; BP diastolic 71–95; PULSE 63–156; RESP 18–20; TEMP 36–36.8; O2SAT 96–98
[2019-11-02] MEDS: Normal Saline Flush 10 ML SYR IVP (06:47)
[2019-11-02 07:11] LABS: Anion Gap 8.4 mmol/L (3-11); BUN 21 mg/dL (7-18); C-Reactive Protein 0.58 mg/dL (0.0-0.3); CO2 25.6 mmol/L (21.0-32.0); CREATININE 1.34 mg/dL (0.70-1.30); Calcium 9.3 mg/dL (8.5-10.1); Chloride 101 mmol/L (98-107); Estimated GFR 53.01 (mL/min/1.73m2); Glucose 124 mg/dL (74-106); Potassium 4.3 mmol/L (3.5-5.1); Sodium 135 mmol/L (136-145)
[2019-11-02] MEDS: Pantoprazole 40 MG TABCR PO (07:45)
[2019-11-02] MEDS: Hydrocortisone 1% CR 30 GM TUBE TP ×2 (08:07→19:49)
[2019-11-02] MEDS: Apixaban 5 MG TAB PO ×2 (08:07→19:49)
[2019-11-02] MEDS: Normal Saline Flush 10 ML SYR 20 ML IVP ×2 (08:07→19:49)
[2019-11-02] MEDS: Colchicine 0.6 MG TAB PO (08:07)
[2019-11-02] MEDS: Losartan 50 MG TAB 100 MG PO (08:08)
[2019-11-02] MEDS: Allopurinol 300 MG TAB PO (08:08)
[2019-11-02] MEDS: dilTIAZem CD 180 MG CAPCR 360 MG PO (08:08)
[2019-11-02] MEDS: cefTRIAXone 2 GM/50 ML BAG IVPB (10:02)
--- NOTE | 2019-11-02 11:04 | PT.INNT ---
Date of service: 11/02/19 Time of Service: 11:04 PT Notes Visit Reasons: SEPSIS, ALTERED MENTAL STATUS PT services held due to elevated HR per nursing.
--- NOTE | 2019-11-02 11:26 | PGE_ITS ---
Date of Service Date of service: 11/02/19 Time of Service: 11:26 Assessment and Plan Assessment and plan (1) Atrial fibrillation: Status: Acute Assessment and plan: rate continues to jump into the 150's with activity. on cardizem 360 mg daily, will add lopressor starting with 12.5 mg PO q8h, will closely monitor and adjust as needed. fully anticoagulated on apixaban. (2) Streptococcal bacteremia: Status: Acute Assessment and plan: Strep salivarius bacteremia in 4/4 bottles from 10/25/2019. Repeat blood cultures 10/26 - negative to date. Source of entry - likely oral sores. TTE without vegetations. Discussed with cardiology - mitral valve was unchanged in the latest echo, and endocarditis is deemed less likely. The patient will need a total of a 14 day course from the first negative blood culture. Continue IV ceftriaxone 2 grams daily. S/p PICC 10/29/2019 - position of tip confirmed to be adequate. (3) Mitral insufficiency: Status: Chronic Assessment and plan: Echocardiogram does NOT show worsening, per cardiology. Will need to follow up with CT surgery team at [facility]. Monitor clinical volume status. (4) Sleep apnea: Status: Acute Assessment and plan: Continue CPAP. (5) Essential hypertension: Status: Acute Assessment and plan: blood pressures have been stable on cardizem. will continue losartan for now but may need to adjust dose down now that we are adding lopressor. monitor closely (6) Gout: Status: Acute Assessment and plan: Improved; Continue daily colchicine; continue allopurinol. (7) DVT prophylaxis: Status: Acute Assessment and plan: On therapeutic eliquis (8) Discharge planning issues: Status: Acute Assessment and plan: Planned to go home with outpatient infusions, 30 day cardiac event recorder when HR controlled Plan for discharge home tomorrow. Subjective Subjective Patient reports: tolerating a regular diet, bowel movement and afebrile Interval history since last seen: patient now with episodes of tachycardia in the 150's with any activity. sustains as long he is up, even without ambulating. he denies chest pain or shortness of breath. he reports he does feel palpitations when it's prolonged. longest episode today was approximately 15 min after sitting back down. Exam Const General: cooperative, healthy appearing, comfortable and no acute distress Nutritional Appearance: average body habitus Orientation: alert, awake and oriented x3 HENMT Head: normal to inspection Ears: hearing grossly normal bilaterally General nose exam: external nose normal Face and sinus: normal facial exam Mouth: oral mucosae normal Neck Neck: normal visual inspection and full ROM Resp Effort & Inspection: normal respiratory effort Auscultation: clear to auscultation bilaterally Cardio Rate: tachycardic Rhythm: abnormal rhythm GI Inspection: normal to inspection Palpation: soft Auscultation: normal bowel sounds Skin General skin exam: no rashes or lesions noted Neuro General: patient alert, patient awake, patient oriented x3 and moves all extremities Extrem General: normal to inspection, full ROM and no pedal edema Psych Appearance: grossly normal and well kempt Mental Status: mental status grossly normal Speech and Movement: speech and movement normal Objective Objective Clinical Data: Abnormal lab results 11/02/19 Range/Units 06:22 Sodium 135 L (136-145) mmol/L BUN 21 H (7-18) mg/dL Creatinine 1.34 H (0.70-1.30) mg/dL Glucose 124 H (74-106) mg/dL C-Reactive Protein 0.58 H (0.0-0.3) mg/dL Vital Signs Temperature 36.7 C 11/02/19 07:48 Temperature Source Temporal Artery Scan 11/02/19 07:48 Pulse 91 H 11/02/19 10:00 Pulse Rhythm Irregular 11/02/19 09:22 Pulse 103 H 10/30/19 18:00 Respiratory Rate 18 11/02/19 08:52 Respiratory Effort Non-Labored 11/02/19 09:22 Respiratory Depth Normal 11/02/19 09:22 Respiratory Pattern Normal 11/02/19 09:22 Blood Pressure 135/90 11/02/19 10:00 Blood Pressure Mean 73 10/30/19 17:52 Blood Pressure Position Supine 10/29/19 15:35 Pulse Oximetry 97 11/02/19 08:52 Respiratory End-tidal CO2 24 10/25/19 10:10 Oxygen Delivery Method Room Air 11/02/19 08:52 Oxygen Flow Rate 0 11/02/19 08:52 Fraction of Inspired Oxygen (FIO2) 21 11/02/19 10:43 Pain Level 0 11/02/19 07:48 Comment 11/02/19 08:52 Intake & Output 11/01/19 11/01/19 11/02/19 11:59 23:59 11:59 Intake Total 400 / 640 240 / 640 250 / 250 Balance 400 / 640 240 / 640 250 / 250 Weight 114.9 kg 113.5 kg Intake: IV 100 / 100 Oral 300 / 540 240 / 540 250 / 250 Other: Urine Color Yellow Urine Appearance Clear Clear Clear Comment voids independantly in toilet Stool Size Moderate Moderate Stool Characteristics Soft Soft Brown Brown Voiding Methods Toilet Toilet Laboratory Results WBC 6.39 k/cumm (4.4-10.8) 11/01/19 06:35 RBC 3.97 m/cumm (4.50-6.00) L 11/01/19 06:35 Hgb 12.5 g/dL (13.5-17.5) L 11/01/19 06:35 Hct 36.9 % (40.0-50.0) L 11/01/19 06:35 MCV 92.9 fL (80-95) 11/01/19 06:35 MCH 31.5 pg (27.0-33.0) 11/01/19 06:35 MCHC 33.9 g/dL (32.0-36.0) 11/01/19 06:35 RDW 13.4 % (11.8-14.1) 11/01/19 06:35 Plt Count 323 x1000/uL (130-400) 11/01/19 06:35 MPV 9.3 fL (8.0-11.0) 11/01/19 06:35 Immature Gran % 0.9 % 11/01/19 06:35 Neutrophils % 69.3 11/01/19 06:35 Lymphocytes % 18.0 11/01/19 06:35 Monocytes % 8.3 11/01/19 06:35 Eosinophils % 3.3 11/01/19 06:35 Basophils % 0.2 11/01/19 06:35 Absolute Neutrophils 4.43 k/cumm (1.2-6.7) 11/01/19 06:35 Absolute Lymphocytes 1.15 k/cumm (1.2-3.4) L 11/01/19 06:35 Absolute Monocytes 0.53 k/cumm (0.11-0.7) 11/01/19 06:35 Absolute Eosinophils 0.21 k/cumm (0.0-0.7) 11/01/19 06:35 Absolute Basophils 0.01 k/cumm (0.0-0.2) 11/01/19 06:35 PT 11.1 sec (9.3-11.0) H 10/25/19 07:00 INR 1.1 (0.9-1.1) 10/25/19 07:00 APTT 24.5 sec (21.0-31.4) 10/25/19 07:00 ABG Sample Site Left radial 10/25/19 17:27 ABG pH 7.45 (7.35-7.45) 10/25/19 17: ABG pCO2 32 mmHg (34-47) L 10/25/19 17: ABG pO2 69 mmHg (83-108) L 10/25/19 17: ABG HCO3 22 mmol/L (22-28) 10/25/19 17: ABG Total CO2 20 mmol/L (22-29) L 10/25/19 17: ABG O2 Saturation 95 % (94-98) 10/25/19 17:27 ABG Base Excess -2.2 mmol/L (-3-3) 10/25/19 17: VBG pH 7.40 (7.35-7.45) 10/25/19 07:00 VBG pCO2 33 mm/Hg (34-47) L 10/25/19 07:00 VBG pO2 72 mm/Hg (28-44) H 10/25/19 07:00 VBG HCO3 21 mmol/L (22-28) L 10/25/19 07:00 VBG Total CO2 19 mmol/L (22-29) L 10/25/19 07:00 VBG O2 Saturation 95 % (70-80) H 10/25/19 07:00 VBG Base Excess -4.0 mmol/L (-3-3) L 10/25/19 07:00 Oxygen Liter Flow 2 L 10/25/19 17: Sodium 135 mmol/L (136-145) L 11/02/19 06:22 Potassium 4.3 mmol/L (3.5-5.1) 11/02/19 06:22 Chloride 101 mmol/L (98-107) 11/02/19 06:22 Carbon Dioxide 25.6 mmol/L (21.0-32.0) 11/02/19 06:22 Anion Gap 8.4 mmol/L (3-11) 11/02/19 06:22 BUN 21 mg/dL (7-18) H 11/02/19 06:22 Creatinine 1.34 mg/dL (0.70-1.30) H 11/02/19 06:22 Estimated GFR/1.73 m2 53.01 (mL/min/1.73m2) 11/02/19 06:22 Glucose 124 mg/dL (74-106) H 11/02/19 06:22 Hemoglobin A1c 6.4 % (3.8-5.6) H 10/26/19 07:00 Lactate 1.0 mmol/L (0.6-1.4) 10/26/19 07:00 Calcium 9.3 mg/dL (8.5-10.1) 11/02/19 06:22 Magnesium 2.0 mg/dL (1.8-2.4) 11/02/19 06:22 Total Bilirubin 1.2 mg/dL (0.2-1.0) H 10/26/19 07:00 AST 23 U/L (15-37) 10/26/19 07:00 ALT 45 U/L (16-63) 10/26/19 07:00 Alkaline Phosphatase 54 U/L (46-116) 10/26/19 07:00 Ammonia < 10 umol/L (11-32) L 10/25/19 07:00 Troponin I < 0.05 ng/Ml (<0.06) 10/25/19 07:00 C-Reactive Protein 0.58 mg/dL (0.0-0.3) H 11/02/19 06:22 Total Protein 6.8 g/dL (6.4-8.2) 10/26/19 07:00 Albumin 3.4 g/dL (3.4-5.0) 10/26/19 07:00 Procalcitonin 2.6 ng/mL 10/26/19 07:00 TSH 2.35 uIU/mL (0.36-3.74) 10/25/19 07:00 Urine Color Yellow (Yellow) 10/25/19 07:05 Urine Clarity Clear (Clear) 10/25/19 07:05 Urine pH 5.5 (5-8) 10/25/19 07:05 Ur Specific [place] 1.025 (1.005-1.025) 10/25/19 07:05 Urine Protein 30 mg/dL (Negative) H 10/25/19 07:05 Urine Ketones 40 mg/dL (Negative) H 10/25/19 07:05 Urine Blood Trace-intact (Negative) H 10/25/19 07:05 Urine Nitrite Negative (Negative) 10/25/19 07:05 Urine Bilirubin Negative (Negative) 10/25/19 07:05 Urine Urobilinogen 0.2 EU/dL (Up TO 0.2) 10/25/19 07:05 Ur Leukocyte Esterase Negative (Negative) 10/25/19 07:05 Urine RBC 0-2 HPF (0-2) 10/25/19 07:05 Urine WBC 0-2 HPF (0-5) 10/25/19 07:05 Ur Epithelial Cells Negative HPF (Negative) 10/25/19 07:05 Urine Crystals Negative HPF (Negative) 10/25/19 07:05 Urine Bacteria Negative HPF (Negative) 10/25/19 07:05 Urine Casts Negative LPF (Negative) 10/25/19 07:05 Urine Mucus Negative (Negative) 10/25/19 07:05 Urine Other Rare renal (Negative) 10/25/19 07:05 Ur Culture Indicated? C&s done as ordered 10/25/19 07:05 Urine Glucose 100 mg/dL (Negative) 10/25/19 07:05 Vancomycin Trough Cancelled 10/27/19 11:00 Ethyl Alcohol < 3.0 mg/dL (<3) 10/25/19 07:00 Coronavirus (PCR) Negative (Negative) 10/25/19 12:30
[2019-11-02] MEDS: Metoprolol 12.5 MG TAB PO ×2 (11:41→19:49)
--- NOTE | 2019-11-02 12:22 | W.CARDCONSUL ---
Date of service: 11/02/19 Time of Service: 12:22 Assessment and Plan Assessment and plan (1) Streptococcal bacteremia: Status: Acute Assessment and plan: 1. Bacteremia with low concern for endocarditis. ?Recommend surface echocardiogram in 1 to 2 weeks. 2. Atrial fibrillation: Still unclear if this is new or not. Patient had a gap in his anticoagulation so unfortunately we cannot attempt a cardioversion immediately without ruling out a left atrial appendage thrombus. I think given his severe mitral disease there would be low likelihood of keeping him in normal sinus rhythm. Agree with aggressive rate control we can with a plan for outpatient cardioversion once he has been on Eliquis for a full 30 days. ?Agree with rate control calcium channel joesph. Would consider metoprolol as needed should his heart rate get above 110 for any consistent period of time. 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 Mitral regurgitation: Moderate to severe. He has been followed by Dr. Carmen. Please make sure he has appointment with his principal embedded software engineer prior to ?Atrial fibrillation control as above. (2) Mitral insufficiency: Status: Chronic (3) Atrial fibrillation: Status: Acute History of Present Illness History of Present Illness Chief Complaint: f/u Narrative: Mr. Roque is a 69-year-old male with past medical history significant for moderate to severe mitral regurgitation who presented 2 days ago with altered mental status. Blood cultures have now been negative for multiple days. He continues to be in atrial fibrillation with periodic RVR during ambulation. Review of Systems All systems reviewed & are unremarkable except as noted in HPI and below PFSH Medical History Chronic anticoagulation (Acute) GERD (gastroesophageal reflux disease) (Chronic) Gout HTN (hypertension) Hyperlipidemia Left sided lacunar infarction (Acute) Malignant melanoma October 2015, ma carmencita, central parietal scalp Mitral insufficiency (Chronic) Prostate cancer diagnosed 2002, s/p prostatectomy Pulmonary embolism September 2017. Treated with Eliquis. Rectal cancer 04/14/12 - transanal excision, chemotherapy, radiation, no evidence of metastatic disease, colonoscopy 10/31/15 showed only diverticulosis and hemorrhoids with f/u recommended in 2 years. 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 No abnormalities found with this colonoscopy, Dr Jin recommends repeat in 3 yrs. Prostatectomy Skin Cancer Removal (~06/2015) DR. CRONIN Transanal excision rectal cancer Family History Mother , age 78 Essential hypertension Cancer Father , age 80 Alzheimer's disease Sister No problems noted. Sister No problems noted. Brother Cancer Hypertension Son No problems noted. Son No problems noted. Son No problems noted. Daughter No problems noted. Maternal Grandfather Cancer Social History Smoking/Tobacco Use Status: Never Second Hand Exposure: Yes Alcohol Intake: current Alcohol Intake frequency: a few times a week Alcohol type: beer, wine and hard liquor Drug use: Rarely Substance use type: marijuana Caregiver/Support person: No Household members: spouse Housing: house Communication Needs: None Do you need help understanding health information?: Never Pets and animals: Yes Pets and animals: dog(s) Sexually active: No Do you think of yourself as: straight/heterosexual Current gender identity: male What is your relationship status?: How often do you talk on the phone with friends or family?: three or more times per week How often do you get together with friends or relatives?: once per week How often do you attend mormonism or sikhism services?: 1-3 times per year Do you belong to any clubs or organized social groups?: no Panel score (0-1 are the most socially isolated patients): 2 What type of physical activity do you participate in: decline to answer Duration: decline to answer Frequency: decline to answer Kyara/Sabianist: Restorationist Special kyara needs: No Seatbelt use: always Drive intox or ride w/intox dray driver: No Do you feel safe in your relationship?: Yes Exam Const General: comfortable and no acute distress HENMT Head: normocephalic and atraumatic Eyes General: appearance normal, both eyes and all related structures Resp Effort & Inspection: normal respiratory effort Auscultation: clear to auscultation bilaterally Cardio Jugular venous pressure: no JVD Palpation: normal PMI Rate: regular rate Heart Sounds: S1 normal and murmur systolic GI Palpation: soft Auscultation: normoactive bowel sounds Skin General skin exam: no rashes or lesions noted Extrem General: normal to inspection and no clubbing, cyanosis or edema Psych Appearance: grossly normal Results Last Vital Signs Temp 36.7 C 11/02/19 07:48 Pulse 91 H 11/02/19 10:00 Resp 18 11/02/19 08:52 BP 135/90 11/02/19 10:00 Pulse Ox 97 11/02/19 08:52 Labs Result diagrams: 11/01/19 06:35 11/02/19 06:22 Labs: Laboratory Results - last 24 hr 11/02/19 06:22 Sodium 135 L Potassium 4.3 Chloride 101 Carbon Dioxide 25.6 Anion Gap 8.4 BUN 21 H Creatinine 1.34 H Estimated GFR/1.73 m2 53.01 Glucose 124 H Calcium 9.3 Magnesium 2.0 C-Reactive Protein 0.58 H
--- NOTE | 2019-11-02 13:35 | CMPROGNOTE_ITS ---
- If Service Date Differs Date of service: 11/02/19 Time of Service: 13:36 Care Management Progress Note S/O: Ankur was sitting up in a chair in good spirits when CM met with him. He stated that he continues to feel well and that his only issue is the rapid heart rate that occurs with activity. He shared that this morning his heart rate reached 156 when he got out of bed and that for the first time it stayed high for 10-15 minutes. He is concerned about going home before his heart rate can be controlled. Cardiology was not consulted yesterday as his heart rate seemed more stable. Per provider, Cardiology will be consulted today to see Ankur again. . A: Ankur is a 69 year old male admitted to [facility] on 10/25/19 for sepsis and altered mental status. P: Ankur will be discharged home with fci IV antibiotic therapy, outpatient at the [facility] Infusion [facility]. He will follow-up with his PCP and plan of care as directed. He will transport via private vehicle with his family. Ankur requested that CM facilitate any new medications through [employer], mail order. New prescription will need to be sent via mail/fax as well as local prescription coordination to [facility] in [facility] for a one week supply. Ankur provided [employer] ID # which is [id number]. The phone number is [phone] .
--- NOTE | 2019-11-02 14:48 | HOME_ITS ---
Home Ventilator Equipment Home care company [employer] Reason: Obstructive Sleep Apnea Make: Respironics Model: System One Mask type: Face mask Mask size: Large Mode: CPAP Settings: Auto-titrate Min 13/ Max 20 on RA Oxygen bleed in (lpm): Condition: Good Date last checked: 11/01/19 Year of last sleep study: [facility] Comments:
--- NOTE | 2019-11-02 15:35 | INDS_ITS ---
Date of service: 11/02/19 Time of Service: 15:35 PT Notes Visit Reasons: SEPSIS, ALTERED MENTAL STATUS Inpatient Physical Therapy Discharge Summary Dates: November 02, 2019 Dates of Service: 10/30/2019-11/02/2019 SUBJECTIVE: Ankur notes that he is doing much better after speaking with the manager academic. He notes this morning his HR remained in the 150's which was surprising to him for thought he was going home. He notes that with the new medication change that his heart rate is much better controlled. He notes that he has been up walking the hallways this afternoon multiple times with his HR remaining in the 70's. Is hoping to go home tomorrow. OBJECTIVE: Objective: General Observation: Telemetry in place. Mental Status: Alert and oriented x4 Pain: None reported Vital Signs: Heart rate remaining in 70's ROM: Right Upper Extremity: Shoulder Flexion WFL. Shoulder abduction WFL. Elbow flexion WFL. Wrist flexion WFL. Opening and closing of hand WFL. Left Upper Extremity: Shoulder Flexion WFL. Shoulder abduction WFL. Elbow flexion WFL. Wrist flexion WFL. Opening and closing of hand WFL. Right Lower Extremity: Hip flexion WFL. Hip abduction WFL. Knee flexion WFL. Ankle dorsiflexion WFL. Ankle plantarflexion WFL. Left Lower Extremity: Hip flexion WFL. Hip abduction WFL. Knee flexion WFL. Ankle dorsiflexion WFL. Ankle plantarflexion WFL. Strength: Right Upper Extremity: Shoulder flexors 4/5. Shoulder abductors 5/5. Elbow flexors 5/5. Elbow extensors 5/5. Certified Surgical Assistant strong. Left Upper Extremity: Shoulder flexors 4/5. Shoulder abductors 5/5. Elbow flexors 5/5. Elbow extensors 5/5. Certified Surgical Assistant strong. Right Lower Extremity: Hip flexors 5/5. Hip abductors 4/5. Knee flexors 5/5. Knee extensors 5/5. Ankle dorsiflexors 5/5. Ankle plantarflexors 5/5. Left Lower Extremity:Hip flexors 5/5. Hip abductors 4/5. Knee flexors 5/5. Knee extensors 5/5. Ankle dorsiflexors 5/5. Ankle plantarflexors 5/5. Bed Mobility/Transfers: Rolling independent Supine to sit independent Sit to supine independent Sit to stand independent Stand to sit independent Bed to chair independent Chair to bed independent Gait: Patient ambulated [id number] with heart rate remaining in 70s. Supervision only. No assistive device needed. No complaints of headache, chest pain, and dizziness. Balance: Static Sitting: Normal Dynamic Sitting: Normal Static Standing: Normal Dynamic Standing: Good Therex: Completed 20 minutes on NuStep without rest HR remaining in mid 70's to low 80's. ASSESSMENT: nAkur currently is independent with all functional transfers and mobility. Presents with good functional strength, endurance, and mobility. No longer requires skilled PT services at this time. GOALS ( Met / Not Met): Goals X1 week 1. Supine-Sit independent (MET) 2. Sit-Supine independent (MET) 3. Sit-Stand independent (MET) 4. Stand-Sit independent (MET) 5. Bed-Chair independent (MET) 6. Chair-Bed independent (MET) 7. Independent gait on level surface without an assistive device for at least 300 feet without report of pain nor dyspnea (MET) 8. Independent stair negotiation while holding onto bilateral rails for at least 5 steps without report of pain nor dyspnea (MET) 9. Independent with home exercise program (MET) 10. Good static and dynamic standing balance/tolerance (MET) DISCHARGE PLAN/RECOMMENDATIONS: Patient to be discharged from PT services at this time due to level of independence. Patient to be discharged home once medically cleared. [id number], 25 minutes, 15:00 PM [facility]I [place]
[2019-11-03 02:57] VITALS: BP 101/65; PULSE 47; RESP 17; TEMP 36.6; O2SAT 98
[2019-11-03 07:42] VITALS: BP 141/87; PULSE 56; RESP 16; TEMP 36.5; O2SAT 98
[2019-11-03] MEDS: Apixaban 5 MG TAB PO (07:51)
[2019-11-03] MEDS: Normal Saline Flush 10 ML SYR 20 ML IVP (07:51)
[2019-11-03] MEDS: dilTIAZem CD 180 MG CAPCR 360 MG PO (07:51)
[2019-11-03] MEDS: Metoprolol 12.5 MG TAB PO (07:52)
[2019-11-03] MEDS: Allopurinol 300 MG TAB PO (07:52)
[2019-11-03] MEDS: Pantoprazole 40 MG TABCR PO (07:52)
[2019-11-03] MEDS: Colchicine 0.6 MG TAB PO (07:52)
[2019-11-03 09:10] VITALS: O2SAT 98
[2019-11-03] MEDS: Normal Saline Flush 10 ML SYR IVP (10:13)
[2019-11-03] MEDS: cefTRIAXone 2 GM/50 ML BAG IVPB (10:13)
--- NOTE | 2019-11-03 10:34 | DSE_ITS ---
Date of service: 11/03/19 Time of Service: 10:34 DS: Diagnosis Discharge Diagnosis (1) Atrial fibrillation: Status: Acute Asessment and Plan: rate is now controlled to over controlled, down the the 40's last night with no symptoms. blood pressure 120-150's. will recommend resuming his metoprolol succinate at 25 mg daily, drop cardizem to 180 mg daily and to have blood pressure/heart rate checked at outpatient appointment (2) Streptococcal bacteremia: Status: Acute Asessment and Plan: will need ceftriaxone through November 09 to complete a 2 weeks course. (3) Mitral insufficiency: Status: Chronic Asessment and Plan: outpatient cardiology appointment for MVR (4) Sleep apnea: Status: Acute Asessment and Plan: home cpap as previously directed. (5) Essential hypertension: Status: Acute Asessment and Plan: amlodipine and losartan placed on hold at discharge. will continue with lopressor 25 mg daily and cardizem 180 mg daily. Will leave further adjustment per outpatient team as needed. (6) Gout: Status: Acute Asessment and Plan: improved, can stop colchicine and continue allopurinol. Discharge Plan Disposition Patient Disposition: HOME Condition: Stable Discharge Details Chief Complaint: RespSymp Clinical Impression: Sepsis, Altered mental status, Fever, Acute dehydration Reason For Visit: SEPSIS, ALTERED MENTAL STATUS Admit Date/Time: 10/25/19 07:54 Admit Provider: Lul Hayden Attending Provider: Lul Hayden Primary Care Provider: Alexis Lo ED Provider: Charles Blas Hospital Course Hospital Course: This is a 69-year-old man who was fine 1 day prior to admission, he was working outside most of the day. He went to bed at a usual time. Per his he awakened at 1:30 AM with rigors and temperature of 100.0. He complained of a mild headache at that time. His notes that about 4:30 AM he awakened with a fever of 102.0, O2 sat of 89%, blood sugar 200. At that time his states that he was confused and unable to answer questions. She alerted EMS via 911 and he was brought to the emergency room. work up in the ED showed no obvious source of infection, head CT was unrevealing. No LP performed in setting of chronic anticoagulation. he was started on broad spectrum antibiotics with Vancomycin Zosyn and azithromycin. His blood cultures did grow gram-positive cocci in both the aerobic and anaerobic bottles and ultimately grew out strep salivarius and antibiotics narrowed to ceftriaxone. He continued to remain hemodynamically stable his white count and lactic acid normalized. He had undergone an MRI of the brain as they were unable to obtain the LP which did not suggest encephalitis. There was a finding of a small frontal lacunar infarct age indeterminate but not felt to be new. He ultimately returned to his baseline. He did undergo an echocardiogram which showed no obvious evidence of vegetation and did not show worsening mitral insufficiency he will follow-up outpatient with CT surgery at [facility]. Hospital course was complicated with rapid atrial fibrillation. He was started on diltiazem and initially seemed to be responding to 300 mg daily but did continue to experience intermittent rapid rate in the 150s so his Cardizem was increased to 360 mg daily. He still did not respond so his Lopressor was added back. With the addition of the Lopressor he was experiencing bradycardia into the 40s but remained asymptomatic. It was decided to decrease his Cardizem to 180 mg daily and to continue the Lopressor at 25 mg daily at discharge. I also recommended that he hold his losartan and amlodipine in case further adjustments needed to be done to the Lopressor or Cardizem for rate control. He will be coming in daily to outpatient services for ceftriaxone for 7 more days to complete a 14-day course for his bacteremia and will have close blood pressure and heart rate monitoring. He is being discharged to home with no new services and will follow-up outpatient with cardiology as scheduled. He will present to outpatient infusion clinic care at [facility] for ceftriaxone 2 g daily through November 09. He is also been set up with an outpatient cardiac event recorder and will have follow-up lab work on November 07. Home Meds and New Rx's Prescriptions: New diltiazem HCl 180 mg Capsule,Extended Release 24hr 180 mg PO DAILY Qty: 30 RF: 0 Continued metoprolol succinate 25 mg tablet extended release 24 hr 25 mg PO DAILY 90 Days Qty: 90 RF: 2 Eliquis 5 mg tablet 5 mg PO BID Qty: 180 RF: 6 allopurinol 300 mg tablet 300 mg PO DAILY Qty: 90 RF: 4 cimetidine 200 mg tablet 200 mg PO BID Qty: 180 RF: 4 Discontinued colchicine 0.6 mg capsule 0.6 mg PO BID Qty: 30 RF: 0 losartan 100 mg tablet 100 mg PO DAILY Qty: 90 RF: 3 amlodipine 5 mg tablet 5 mg PO DAILY Qty: 90 RF: 4 Discharge Instructions Instructions: Sepsis (GEN), Altered Mental Status (GEN) Stand Alone Forms: Nursing Discharge Form Referrals: Alexis Lo DO [Primary Care Provider] - 11/10/19 3:20 pm (FOLLOW UP WITH DR. LO VIA PORTAL) Parker Carmen MD [ CONSULTING PHYSICIAN] - 12/17/19 1:00 pm (DR. CARMEN WILL CALL YOU TO MAKE YOU A APPOINTMENT SOONER THEN DECEMBER 16.) Activity:: Activity as Tolerated Equipment/Supplies:: No Equipment Needed Diet:: As Tolerated Discharge Orders Discharge Orders: Discharge Order (Routine); Ordered 11/03/19 Ordered By: Sadia Atwood Other Ambulatory Orders: Cardiac Event Recorder (Outpt) (ONCE) Location: None Selected Ordered By: Sadia Atwood Discharge Data Discharge Date/Time-TO BE ENTERED AT DEPARTURE: 11/03/19 15:07 DS: Summary Status at Discharge Functional status at discharge: independent ambulation Overall status at discharge: patient is back to baseline Mental Status: mental status grossly normal Speech and Movement: speech and movement normal Mood: congruent mood Affect: normal affect Exam Const General: cooperative, healthy appearing, comfortable and no acute distress Nutritional Appearance: average body habitus and well nourished Orientation: alert, awake and oriented x3 HENMT Head: normal to inspection, normocephalic and atraumatic Mouth: oral mucosae normal Resp Effort & Inspection: normal respiratory effort Auscultation: clear to auscultation bilaterally Cardio Rate: regular rate and bradycardic Rhythm: abnormal rhythm (afib) GI Inspection: normal to inspection Palpation: soft Auscultation: normal bowel sounds Skin Lesions: no lesions Rashes: no rashes Neuro General: patient alert, patient awake and patient oriented x3 Cranial Nerves: CN's II-XI intact bilaterally Speech: speech normal Gait: normal gait Motor: muscle tone normal throughout Extrem General: normal to inspection, full ROM and no pedal edema Psych Appearance: grossly normal Mental Status: mental status grossly normal Speech and Movement: speech and movement normal Mood: congruent mood Affect: normal affect Attitude: cooperative Thought Process: normal Thought Content: normal Insight: insight good Judgment: judgment good DS: Data Vitals/I&O Vitals and I&O: Vital Signs Temperature 36.5 C 11/03/19 07:42 Temperature Source Tympanic 11/03/19 07:42 Pulse 56 L 11/03/19 07:42 Pulse Rhythm Irregular 11/03/19 09:10 Pulse 103 H 10/30/19 18:00 Respiratory Rate 16 11/03/19 07:42 Respiratory Effort Non-Labored 11/03/19 09:10 Respiratory Depth Normal 11/03/19 09:10 Respiratory Pattern Normal 11/03/19 09:10 Blood Pressure 141/87 H 11/03/19 07:42 Blood Pressure Mean 73 10/30/19 17:52 Blood Pressure Position Supine 10/29/19 15:35 Pulse Oximetry 98 11/03/19 09:10 Respiratory End-tidal CO2 10/25/19 10:10 Oxygen Delivery Method Room Air 11/03/19 09:10 Oxygen Flow Rate 0 11/03/19 09:10 Fraction of Inspired Oxygen (FIO2) 11/02/19 10:43 Pain Level 0 11/03/19 07:42 Comment 11/02/19 08:52 Intake & Output 11/02/19 11/02/19 11/03/19 11:59 23:59 11:59 Intake Total 300 / 790 490 / 790 290 / 290 Balance 300 / 790 490 / 790 290 / 290 Weight 113.5 kg 112.7 kg Intake: IV 50 / 50 50 / 50 Oral 250 / 740 490 / 740 240 / 240 Other: Urine Color Yellow Yellow Urine Appearance Clear Clear Clear Urine Odor None Stool Size Moderate Stool Characteristics Soft Brown Voiding Methods Toilet Toilet Toilet Data Completed and Pending Labs on day of discharge: Preliminary micro results at discharge 10/25/19 08:00 Blood Culture - Preliminary Blood Strep salivarius ssp salivariu [facility] Medical History Chronic anticoagulation (Acute) GERD (gastroesophageal reflux disease) (Chronic) Gout HTN (hypertension) Hyperlipidemia Left sided lacunar infarction (Acute) Malignant melanoma October 2015, ma carmencita, central parietal scalp Mitral insufficiency (Chronic) Prostate cancer diagnosed 2002, s/p prostatectomy Pulmonary embolism September 2017. Treated with Eliquis. Rectal cancer 04/14/12 - transanal excision, chemotherapy, radiation, no evidence of metastatic disease, colonoscopy 10/31/15 showed only diverticulosis and hemorrhoids with f/u recommended in 2 years. 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 No abnormalities found with this colonoscopy, Dr Jin recommends repeat in 3 yrs. Prostatectomy Skin Cancer Removal (~06/2015) DR. CRONIN Transanal excision rectal cancer Family History Mother , age 78 Essential hypertension Cancer Father , age 80 Alzheimer's disease Sister No problems noted. Sister No problems noted. Brother Cancer Hypertension Son No problems noted. Son No problems noted. Son No problems noted. Daughter No problems noted. Maternal Grandfather Cancer Social History Smoking/Tobacco Use Status: Never Second Hand Exposure: Yes Alcohol Intake: current Alcohol Intake frequency: a few times a week Alcohol type: beer, wine and hard liquor Drug use: Rarely Substance use type: marijuana Caregiver/Support person: No Household members: spouse Housing: house Communication Needs: None Do you need help understanding health information?: Never Pets and animals: Yes Pets and animals: dog(s) Sexually active: No Do you think of yourself as: straight/heterosexual Current gender identity: male What is your relationship status?: How often do you talk on the phone with friends or family?: three or more times per week How often do you get together with friends or relatives?: once per week How often do you attend pentecostalism or confucianism services?: 1-3 times per year Do you belong to any clubs or organized social groups?: no Panel score (0-1 are the most socially isolated patients): 2 What type of physical activity do you participate in: decline to answer Duration: decline to answer Frequency: decline to answer Kyara/Episcopalian: Gnosticist Special kyara needs: No Seatbelt use: always Drive intox or ride w/intox public transit bus driver: No Do you feel safe in your relationship?: Yes
--- NOTE | 2019-11-03 12:13 | PDOC.CMDIS ---
LACE Index Scoring Tool - Questions: Length of Stay (in days): 7 - 13 Acuity (Admit via E.D.?): Yes Comorbidities: Any Tumor E.D. Visits: 2 - Answers: Total Score: 12 Risk of Readmission: High Risk Care Management Discharge Reason for Hospitalization: Sepsis Discharge Plan: Ankur will return home when ready per MD. He will have new orders for assisted IV antibiotic therapy, outpatient at the [facility]. CM supported coordination of [employer] mail order prescriptions. Ankur will follow-up with his PCP and plan of care as directed. He will transport via private vehicle with his family. Patient/Family Education Needs: Review discharge instructions, discuss Ask Me Three. Services Needed at Discharge: Infusion Therapy (Outpatient [facility] )
[2019-11-03 16:16] VITALS: PULSE 76
--- NOTE | 2019-12-06 10:52 | CER_ITS ---
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 Rhythm throughout appeared to be sinus There was no definite atrial fibrillation. 1 episode labeled atrial flutter with variable conduction appeared to be sinus with baseline artifact There were no significant ventricular dysrhythmias. An episode labeled ventricular tachycardia also appeared to be artifact Average heart rate was 70. Minimum heart rate was 53. There were no pauses
== END 2019-11-03 15:07 | disposition home or self-care (01) | DRG 871 ==
LOC: ER 09:01 → RCU 12:16 → MS 19:25 → ICU 10-28 11:24 → MS 10-30 18:16
PROVIDERS: Internal Medicine; Admitting Provider Family Medicine; Emergency Provider Student in an Organized Health Care Education/Training Program; PCP Emergency Medicine; Visit Provider Family Medicine
DX: A40.8 Other streptococcal sepsis (principal); I63.81 Other cerebral infarction due to occlusion or stenosis of small artery; E87.1 Hypo-osmolality and hyponatremia; R41.82 Altered mental status, unspecified; I48.91 Unspecified atrial fibrillation; R00.0 Tachycardia, unspecified; I34.0 Nonrheumatic mitral (valve) insufficiency; Z79.01 Long term (current) use of anticoagulants; Z86.711 Personal history of pulmonary embolism; G47.33 Obstructive sleep apnea (adult) (pediatric); F10.10 Alcohol abuse, uncomplicated; I10 Essential (primary) hypertension; R73.03 Prediabetes; R51 Headache; K21.9 Gastro-esophageal reflux disease without esophagitis; Z71.3 Dietary counseling and surveillance; Z99.89 Dependence on other enabling machines and devices
CPT/HCPCS: 36415; 36569; 51702; 71045; 71250; 80048; 80053; 82805; 84145; 85027; 87040; 87077; 87449; 93005; 93270; 96361; 96365; 96366; 96367; 96375; 96376; 97110; 97162; 97530; 99223; 99232; 99233; 99239; 99254; 99285; U0003; 36600; 70450; 70551; 80202; 80320; 81003; 81015; 82140; 83036; 83605; 83735; 84443; 84484; 85025; 85610; 85730; 86140; 87086; 87186; 93010; 93306; J0131; J0133; J0456; J2060; J2543; J3490

== ENCOUNTER → 2019-10-28 11:41 | Outpatient (BNVA) | payer MEDICARE, OTHER, SELFPAY | PROVIDERS: PCP Emergency Medicine; Referring Provider Emergency Medicine; Visit Provider Internal Medicine Cardiovascular Disease | DX: R69 Illness, unspecified (principal) ==

== ENCOUNTER 2019-11-04 01:06 | Outpatient (RCR) | payer MEDICARE, OTHER, SELFPAY ==
[2019-11-04] MEDS: cefTRIAXone 2 GM/50 ML BAG IVPB (10:10)
[2019-11-04] MEDS: Normal Saline Flush 10 ML SYR IVP (10:11)
== END 2019-11-04 23:59 | disposition home or self-care (01) ==
LOC: INF 01:06
PROVIDERS: PCP Emergency Medicine; Visit Provider Nurse Practitioner Acute Care
DX: A40.8 Other streptococcal sepsis (principal); Z79.2 Long term (current) use of antibiotics
CPT/HCPCS: 96365

== ENCOUNTER 2019-11-09 02:09 | Outpatient (RCR) | payer MEDICARE, OTHER, SELFPAY ==
[2019-11-05] MEDS: cefTRIAXone 2 GM/50 ML BAG IVPB (10:00)
[2019-11-05] MEDS: Normal Saline Flush 10 ML SYR IVP (10:27)
[2019-11-06] MEDS: cefTRIAXone 2 GM/50 ML BAG IVPB (10:05)
[2019-11-06] MEDS: Normal Saline Flush 10 ML SYR IVP (10:06)
[2019-11-06 10:42] VITALS: BP 140/77; PULSE 62; RESP 16; TEMP 35.4; O2SAT 97
[2019-11-07] MEDS: Normal Saline Flush 10 ML SYR IVP (10:04)
[2019-11-07] MEDS: cefTRIAXone 2 GM/50 ML BAG IVPB (10:05)
[2019-11-08] MEDS: cefTRIAXone 2 GM/50 ML BAG IVPB (10:14)
[2019-11-08] MEDS: Normal Saline Flush 10 ML SYR IVP (10:16)
[2019-11-08 10:41] LABS: Abs Immature Grans 0.01 k/cumm (0.0-0.09); Absolute Basophil Count 0.01 k/cumm (0.0-0.2); Absolute Eosinophil Count 0.15 k/cumm (0.0-0.7); Absolute Lymphocyte Count 0.77 k/cumm (1.2-3.4); Absolute Neutrophil Count 3.85 k/cumm (1.2-6.7); Basophils % 0.2; Eosinophils % 2.9; HCT 34.2 % (40.0-50.0); HGB 11.7 g/dL (13.5-17.5); Immature Grans % 0.2 %; Lymphocytes % 14.8; Mean Corp. HGB Concentration 34.2 g/dL (32.0-36.0); Mean Corpuscular Hemoglobin 32.2 pg (27.0-33.0); Mean Corpuscular Volume 94.2 fL (80-95); Mean Platelet Volume 9.6 fL (8.0-11.0); Monocytes % 7.7; Neutrophils % 74.2; Platelet Count 323 x1000/uL (130-400); RBC 3.63 m/cumm (4.50-6.00); RBC Distribution Width 13.3 % (11.8-14.1); White Blood Cell Count 5.19 k/cumm (4.4-10.8)
[2019-11-08 10:48] LABS: Anion Gap 6.7 mmol/L (3-11); BUN 19 mg/dL (7-18); C-Reactive Protein 0.16 mg/dL (0.0-0.3); CO2 27.3 mmol/L (21.0-32.0); CREATININE 1.43 mg/dL (0.70-1.30); Calcium 9.1 mg/dL (8.5-10.1); Chloride 103 mmol/L (98-107); Estimated GFR 49.18 (mL/min/1.73m2); Glucose 103 mg/dL (74-106); Potassium 4.1 mmol/L (3.5-5.1); Sodium 137 mmol/L (136-145)
[2019-11-09] MEDS: cefTRIAXone 2 GM/50 ML BAG IVPB (10:02)
[2019-11-09] MEDS: Normal Saline Flush 10 ML SYR IVP (10:02)
[2019-11-09] MEDS: Bacitracin 1 PACKET (10:45)
== END 2019-12-05 23:59 | disposition home or self-care (01) ==
LOC: INF 02:09
PROVIDERS: PCP Emergency Medicine; Visit Provider Nurse Practitioner Acute Care
DX: A49.9 Bacterial infection, unspecified (principal); A41.9 Sepsis, unspecified organism; R73.9 Hyperglycemia, unspecified; M10.9 Gout, unspecified; I48.91 Unspecified atrial fibrillation
CPT/HCPCS: 36592; 80048; 96365; 85025; 86140

== ENCOUNTER 2019-11-22 02:24 | Outpatient (CLI) | payer MEDICARE, OTHER, SELFPAY ==
[2019-11-22 09:26] LABS: Abs Immature Grans 0.01 k/cumm (0.0-0.09); Absolute Basophil Count 0.03 k/cumm (0.0-0.2); Absolute Eosinophil Count 0.23 k/cumm (0.0-0.7); Absolute Lymphocyte Count 0.99 k/cumm (1.2-3.4); Absolute Monocyte Count 0.41 k/cumm (0.11-0.7); Absolute Neutrophil Count 3.09 k/cumm (1.2-6.7); Basophils % 0.6; Eosinophils % 4.8; HCT 38.1 % (40.0-50.0); HGB 12.9 g/dL (13.5-17.5); Immature Grans % 0.2 %; Lymphocytes % 20.8; Mean Corp. HGB Concentration 33.9 g/dL (32.0-36.0); Mean Corpuscular Hemoglobin 31.9 pg (27.0-33.0); Mean Corpuscular Volume 94.3 fL (80-95); Mean Platelet Volume 9.5 fL (8.0-11.0); Monocytes % 8.6; Platelet Count 259 x1000/uL (130-400); RBC 4.04 m/cumm (4.50-6.00); RBC Distribution Width 13.6 % (11.8-14.1); White Blood Cell Count 4.76 k/cumm (4.4-10.8)
[2019-11-22 10:07] LABS: ESR 10 mm/hr (1-20)
[2019-11-22 10:33] LABS: ALT 45 U/L (16-63); AST 21 U/L (15-37); Albumin 4.2 g/dL (3.4-5.0); Alkaline Phosphatase 55 U/L (46-116); Anion Gap 7.6 mmol/L (3-11); BUN 22 mg/dL (7-18); Bilirubin, Total 0.6 mg/dL (0.2-1.0); C-Reactive Protein 0.06 mg/dL (0.0-0.3); CO2 28.4 mmol/L (21.0-32.0); Calcium 9.2 mg/dL (8.5-10.1); Chloride 102 mmol/L (98-107); Glucose 107 mg/dL (74-106); Potassium 4.3 mmol/L (3.5-5.1); Sodium 138 mmol/L (136-145); Total Protein 7.2 g/dL (6.4-8.2)
== END 2019-11-22 02:44 ==
PROVIDERS: PCP Emergency Medicine; Visit Provider Emergency Medicine
DX: B95.5 Unspecified streptococcus as the cause of diseases classified elsewhere (principal); R78.81 Bacteremia
CPT/HCPCS: 36415; 80053; 85652; 85025; 86140

== ENCOUNTER 2020-01-06 13:28 | Outpatient (REF) | payer MEDICARE, OTHER, SELFPAY ==
[2020-01-06 13:41] LABS: Abs Immature Grans 0.06 k/cumm (0.0-0.09); Absolute Basophil Count 0.04 k/cumm (0.0-0.2); Absolute Eosinophil Count 0.13 k/cumm (0.0-0.7); Absolute Lymphocyte Count 0.79 k/cumm (1.2-3.4); Absolute Monocyte Count 0.72 k/cumm (0.11-0.7); Absolute Neutrophil Count 7.13 k/cumm (1.2-6.7); Basophils % 0.5; Eosinophils % 1.5; HCT 29.1 % (40.0-50.0); HGB 8.8 g/dL (13.5-17.5); Immature Grans % 0.7 %; Lymphocytes % 8.9; Mean Corp. HGB Concentration 30.2 g/dL (32.0-36.0); Mean Corpuscular Hemoglobin 29.7 pg (27.0-33.0); Mean Corpuscular Volume 98.3 fL (80-95); Mean Platelet Volume 9.3 fL (8.0-11.0); Monocytes % 8.1; Neutrophils % 80.3; RBC 2.96 m/cumm (4.50-6.00); RBC Distribution Width 14.9 % (11.8-14.1); White Blood Cell Count 8.87 k/cumm (4.4-10.8)
[2020-01-06 13:42] LABS: Anion Gap 7.6 mmol/L (3-11); BUN 19 mg/dL (7-18); CO2 29.4 mmol/L (21.0-32.0); CREATININE 1.27 mg/dL (0.70-1.30); Calcium 9.9 mg/dL (8.5-10.1); Chloride 101 mmol/L (98-107); Glucose 78 mg/dL (74-106); Sodium 138 mmol/L (136-145)
[2020-01-06 14:01] LABS: Diff Comment Diff Reviewed; Hypochromasia 2+; Platelet Count 646 x1000/uL (130-400); Polychromasia Present
[2020-01-06 14:02] LABS: Poikilocytes 2+
== END 2020-01-06 13:48 ==
LOC: LBN 13:28
PROVIDERS: PCP Emergency Medicine; Visit Provider Emergency Medicine
DX: I10 Essential (primary) hypertension (principal); I34.0 Nonrheumatic mitral (valve) insufficiency
CPT/HCPCS: 80048; 85025

== ENCOUNTER 2020-01-17 01:53 | Outpatient (CLI) | payer MEDICARE, OTHER, SELFPAY ==
[2020-01-17 12:57] LABS: INR 3.5 (0.9-1.1); Prothrombin Time 34.2 sec (9.3-11.0)
== END 2020-01-17 02:13 ==
PROVIDERS: PCP Emergency Medicine; Visit Provider Emergency Medicine
DX: I48.91 Unspecified atrial fibrillation (principal); Z79.01 Long term (current) use of anticoagulants
CPT/HCPCS: 36415; 85027; 85610

== ENCOUNTER 2020-01-18 07:35 | Outpatient (CLI) | payer MEDICARE, OTHER, SELFPAY ==
[2020-01-20 09:41] LABS: COVID-19 RT-PCR Result NEGATIVE (Negative)
== END 2020-01-18 07:55 ==
PROVIDERS: PCP Emergency Medicine; Visit Provider Family Medicine
DX: Z03.818 Encounter for observation for suspected exposure to other biological agents ruled out (principal)
CPT/HCPCS: U0003

== ENCOUNTER 2020-01-24 02:20 | Outpatient (CLI) | payer MEDICARE, OTHER, SELFPAY ==
[2020-01-24 09:35] LABS: HCT 32.7 % (40.0-50.0); HGB 10.4 g/dL (13.5-17.5); Mean Corp. HGB Concentration 31.8 g/dL (32.0-36.0); Mean Corpuscular Hemoglobin 30.4 pg (27.0-33.0); Mean Corpuscular Volume 95.6 fL (80-95); Mean Platelet Volume 9.3 fL (8.0-11.0); Platelet Count 330 x1000/uL (130-400); RBC 3.42 m/cumm (4.50-6.00); RBC Distribution Width 14.6 % (11.8-14.1); White Blood Cell Count 6.44 k/cumm (4.4-10.8)
[2020-01-24 09:42] LABS: Prothrombin Time 45.4 sec (9.3-11.0)
[2020-01-24 10:14] LABS: INR 4.7 (0.9-1.1)
== END 2020-01-24 02:40 ==
PROVIDERS: PCP Emergency Medicine; Visit Provider Emergency Medicine
DX: I48.91 Unspecified atrial fibrillation (principal)
CPT/HCPCS: 36415; 85027; 85610

== ENCOUNTER 2020-01-28 02:15 | Outpatient (CLI) | payer MEDICARE, OTHER, SELFPAY ==
[2020-01-28 15:00] LABS: INR 2.6 (0.9-1.1); Prothrombin Time 25.8 sec (9.3-11.0)
== END 2020-01-28 02:35 ==
PROVIDERS: PCP Emergency Medicine; Visit Provider Emergency Medicine
DX: Z79.01 Long term (current) use of anticoagulants (principal); I48.91 Unspecified atrial fibrillation
CPT/HCPCS: 36415; 85610

== ENCOUNTER 2020-02-02 11:30 | Outpatient (RCR) | payer MEDICARE, OTHER, SELFPAY | END 2020-02-04 23:59 | disposition home or self-care (01) | LOC: CR 11:30 | PROVIDERS: PCP Emergency Medicine; Visit Provider Family Medicine | DX: Z95.3 Presence of xenogenic heart valve (principal); Z51.89 Encounter for other specified aftercare | CPT/HCPCS: S9472 ==

== ENCOUNTER 2020-02-07 02:08 | Outpatient (CLI) | payer MEDICARE, OTHER, SELFPAY ==
[2020-02-07 10:49] LABS: INR 2.9 (0.9-1.1); Prothrombin Time 28.6 sec (9.3-11.0)
== END 2020-02-07 02:28 ==
PROVIDERS: PCP Emergency Medicine; Visit Provider Emergency Medicine
DX: I48.91 Unspecified atrial fibrillation (principal); Z79.01 Long term (current) use of anticoagulants
CPT/HCPCS: 36415; 85610

== ENCOUNTER 2020-02-09 10:52 | Emergency (ER) | payer MEDICARE, OTHER, SELFPAY ==
[2020-02-09 10:57] VITALS: BP 155/89; PULSE 77; RESP 18; TEMP 36.6; O2SAT 98
--- NOTE | 2020-02-09 12:06 | W.ED.GENAD ---
Discharge Plan Disposition Patient Disposition: HOME Condition: Stable Discharge Details Chief Complaint: Cellulitis Clinical Impression: Cellulitis, Cyst Primary Care Provider: Alexis Lo ED Provider: Devante Alvares Home Meds and New Rx's Prescriptions: New cephalexin [Keflex] 500 mg capsule 500 mg PO QID 10 Days Qty: 40 RF: 0 Continued metoprolol tartrate 25 mg tablet 25 mg PO BID RF: 0 amlodipine 5 mg tablet 5 mg PO DAILY RF: 0 aspirin 81 mg tablet,delayed release (DR/EC) 81 mg PO DAILY RF: 0 ferrous sulfate 325 mg (65 mg iron) tablet 325 mg PO DAILY RF: 0 folic acid 1 mg tablet 1 mg PO DAILY RF: 0 potassium chloride [Klor-Con 10] 10 mEq tablet extended release 10 meq PO DAILY RF: 0 amoxicillin 500 mg capsule 2,000 mg PO PRN RF: 0 benzonatate [Tessalon Perles] 100 mg capsule 100 mg PO BID-TID PRNRF: 0 oxycodone 5 mg tablet 5 mg PO Q4H PRNRF: 0 acetaminophen [Tylenol Extra Strength] 500 mg tablet 1,000 mg PO Q6H PRNRF: 0 amiodarone 200 mg tablet 200 mg PO BID Qty: 60 RF: 1 allopurinol 300 mg tablet 300 mg PO DAILY Qty: 90 RF: 4 cimetidine 200 mg tablet 200 mg PO BID Qty: 180 RF: 4 warfarin 5 mg tablet 5 mg PO DAILY Qty: 300 RF: 1 colchicine 0.6 mg capsule 0.6 mg PO BID Qty: 30 RF: 0 Discharge Instructions Instructions: Cellulitis (ED) Additional Instructions: Keflex as directed. Keep the area clean and dry, change antibiotic dressing daily. Warm compresses every 2 hours for 20 minutes. Please watch for new or worsening symptoms and return to the ER for any concerns. Wound culture is pending. Be sure to be very mindful of your INR level while taking antibiotics. I do recommend reaching out to your primary care provider and/or email deployment specialist later on today or tomorrow for prompt outpatient reevaluation Discharge Data Discharge Date/Time-TO BE ENTERED AT DEPARTURE: 02/09/20 12:18 Medical Decision Making 69-year-old gentleman who has had a cyst on his back for several years presents with mild discomfort and redness. Examination appears to be a sebaceous cyst, no obvious pointing abscess. There is mild fluctuance and surrounding erythema. I explained to him that I can certainly drain this however he may need to be seen by dermatology or general surgery to have it actually removed. Will obtain wound culture. I&D without difficulty. No real bloody or purulent drainage, more of a sebaceous cyst consistency. Wound was cleaned and dressed. Given the mild erythema and discomfort will cover with oral Keflex. Patient without additional questions or concerns, he is comfortable discharge. HPI General Mode of arrival: ambulatory. Date/Time Provider Initiated Documentation: 02/09/20 10:54. Limitations to Documentation: no limitations. Information obtained by: patient. HPI Narrative: This is a 69-year-old gentleman who reports that he has had a cyst to his left upper back for several years and has been evaluated by a ice cream dipper. He was told if it does not bother him then there is nothing to do about it. He reports over the past couple of days the area has become slightly red and painful. He has no additional concerns or questions. Denies fever, rash elsewhere on his body. Patient does have a history of squamous cell cancer, PE, hypertension, GERD, and is chronically anticoagulated. He reports his INR was checked on Friday and was 2.9. He attempted to contact his dermatology team but they are out of the office this week. He reports that the discomfort is mild however he has a history of getting more serious infections, sepsis, and did not want to wait any longer for therapy Related Data Home Medications Medication Instructions Recorded Confirmed allopurinol 300 mg tablet 300 mg PO DAILY #90 tab 10/12/19 02/09/20 cimetidine 200 mg tablet 200 mg PO BID #180 tab 11/05/19 02/09/20 acetaminophen 500 mg tablet 1,000 mg PO Q6H PRN tab 01/12/20 02/09/20 amiodarone 200 mg tablet 200 mg PO BID #60 tab 01/12/20 02/09/20 amlodipine 5 mg tablet 5 mg PO DAILY 01/12/20 02/09/20 amoxicillin 500 mg capsule 2,000 mg PO PRN cap 01/12/20 02/09/20 aspirin 81 mg tablet,delayed 81 mg PO DAILY 01/12/20 02/09/20 release benzonatate 100 mg capsule 100 mg PO BID-TID PRN 01/12/20 02/09/20 ferrous sulfate 325 mg (65 mg 325 mg PO DAILY 01/12/20 02/09/20 iron) tablet folic acid 1 mg tablet 1 mg PO DAILY 01/12/20 02/09/20 metoprolol tartrate 25 mg tablet 25 mg PO BID 01/12/20 02/09/20 oxycodone 5 mg tablet 5 mg PO Q4H PRN 01/12/20 02/09/20 potassium chloride 10 mEq 10 meq PO DAILY 01/12/20 02/09/20 tablet,extended release warfarin 5 mg tablet 5 mg PO DAILY #300 tab 01/17/20 02/09/20 colchicine 0.6 mg capsule 0.6 mg PO BID #30 cap 02/04/20 02/09/20 cephalexin [Keflex] 500 mg PO QID 10 Days #40 cap 02/09/20 Previous Rx's Medication Instructions Recorded allopurinol 300 mg tablet 300 mg PO DAILY #90 tab 10/12/19 cimetidine 200 mg tablet 200 mg PO BID #180 tab 11/05/19 amiodarone 200 mg tablet 200 mg PO BID #60 tab 01/12/20 warfarin 5 mg tablet 5 mg PO DAILY #300 tab 01/17/20 colchicine 0.6 mg capsule 0.6 mg PO BID #30 cap 02/04/20 cephalexin [Keflex] 500 mg PO QID 10 Days #40 cap 02/09/20 Allergies Allergy/AdvReac Type Severity Reaction Status Date / Time No Known Allergies Allergy Verified 02/09/20 11:00 General Stated Complaint: Cellulitis VALERY: 4 Review of Systems Constitutional Constitutional: Denies fever(s) and Denies weakness Cardiovascular Cardiovascular: Denies chest pain and Denies dyspnea Respiratory Respiratory: Denies dyspnea Musculoskeletal Musculoskeletal: Denies numbness and Denies tingling Integumentary/Breasts Skin/Breast: Reports erythema Neurologic Neurologic: Denies numbness, Denies tingling and Denies weakness [facility] Medical History Chronic anticoagulation (Acute) Chronic anticoagulation (Acute) GERD (gastroesophageal reflux disease) (Chronic) Gout HTN (hypertension) Hyperlipidemia Left sided lacunar infarction (Acute) Malignant melanoma October 2015, anil tse, víctor parietal scalp Mitral insufficiency (Chronic) Valve repair at [facility] December 2019 Prostate cancer diagnosed 2002, s/p prostatectomy Pulmonary embolism September 2017. Treated with Eliquis. Rectal cancer 04/14/12 - transanal excision, chemotherapy, radiation, no evidence of metastatic disease, colonoscopy 10/31/15 showed only diverticulosis and hemorrhoids with f/u recommended in 2 years. 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 No abnormalities found with this colonoscopy, Dr Jin recommends repeat in 3 yrs. Prostatectomy Skin Cancer Removal (~06/2015) DR. CRONIN Transanal excision rectal cancer Family History Mother , age 78 Essential hypertension Cancer Father , age 80 Alzheimer's disease Sister No problems noted. Sister No problems noted. Brother Cancer Hypertension Son No problems noted. Son No problems noted. Son No problems noted. Daughter No problems noted. Maternal Grandfather Cancer Social History Smoking/Tobacco Use Status: Never Second Hand Exposure: Yes Alcohol Intake: current Alcohol Intake frequency: a few times a week Alcohol type: beer, wine and hard liquor Drug use: Rarely Substance use type: marijuana Caregiver/Support person: No Household members: spouse Housing: house Communication Needs: None Do you need help understanding health information?: Never Pets and animals: Yes Pets and animals: dog(s) Sexually active: No Do you think of yourself as: straight/heterosexual Current gender identity: male What is your relationship status?: How often do you talk on the phone with friends or family?: three or more times per week How often do you get together with friends or relatives?: once per week How often do you attend anabaptism or buddhist services?: 1-3 times per year Do you belong to any clubs or organized social groups?: no Panel score (0-1 are the most socially isolated patients): 2 What type of physical activity do you participate in: decline to answer Duration: decline to answer Frequency: decline to answer Kyara/Restorationist: Denominational Special kyara needs: No Seatbelt use: always Drive intox or ride w/intox auto crane driver: No Do you feel safe at home: Yes Do you feel safe in your relationship?: Yes Exam Const General: cooperative, healthy appearing, comfortable and no acute distress Orientation: alert, awake and oriented x3 HENMT Head: normal to inspection, normocephalic and atraumatic Mouth: moist mucous membranes Eyes Conjunctivae: conjunctivae normal Neck Neck: normal visual inspection, trachea midline and supple Resp Effort & Inspection: normal respiratory effort and able to speak in complete sentences Cardio Rate: regular rate Rhythm: regular rhythm Back/Spine/Pelvis Back/spine/pelvis image: 1. Dime sized what appears to be a sebaceous cyst. Centrally there is minimal fluctuance. Surrounding there is mild erythema and warmth. There is no active drainage. Neuro, vascular, tendon intact. Skin General skin exam: no rashes or lesions noted Neuro General: patient alert, patient awake, moves all extremities and no focal motor deficits Sensory Exam: no sensory deficits noted Psych Appearance: grossly normal Mental Status: mental status grossly normal Course Vital Signs Vital signs: Vital Signs Temperature 36.6 C 02/09/20 10:57 Pulse 77 02/09/20 10:57 Respiratory Rate 18 02/09/20 10:57 Blood Pressure 155/89 H 02/09/20 10:57 Pulse Oximetry 98 02/09/20 10:57 Temperature 36.6 C 02/09/20 10:57 Temperature Source Skin 02/09/20 10:57 Pulse 77 02/09/20 10:57 Respiratory Rate 18 02/09/20 10:57 Respiratory Effort 02/09/20 11:12 Blood Pressure 155/89 H 02/09/20 10:57 Blood Pressure Position Sitting 02/09/20 10:57 Pulse Oximetry 98 02/09/20 10:57 Oxygen Delivery Method Room Air 02/09/20 10:57 Oxygen Flow Rate 0 02/09/20 10:57 Pain Level 2 02/09/20 10:57 Procedures Abscess I/D Site: Back Side (if applicable): Left Local Anesthetic: Lidocaine 2% and With Epi Amount of anesthesia used (mL): 5 Technique: Incised with #11 Blade Irrigation: No Packing used?: None Complications: Pain, Bleeding, Nerve Injury, Allergic Reaction and Hypoxia
== END 2020-02-09 12:18 | disposition home or self-care (01) ==
PROVIDERS: Emergency Provider Physician Assistant; PCP Emergency Medicine
DX: L72.3 Sebaceous cyst (principal); L03.312 Cellulitis of back [any part except buttock and flank]; I10 Essential (primary) hypertension; Z85.828 Personal history of other malignant neoplasm of skin
CPT/HCPCS: 10060; 87077; 87070; 87186; 87205

== ENCOUNTER 2020-02-11 01:57 | Outpatient (CLI) | payer MEDICARE, OTHER, SELFPAY ==
[2020-02-11 12:52] LABS: INR 2.1 (0.9-1.1); Prothrombin Time 20.5 sec (9.3-11.0)
[2020-02-11 21:19] LABS: Hemoglobin A1C 5.3 % (3.8-5.6)
[2020-02-11 21:37] LABS: Calculated LDL 150 mg/dL (<100); Cholesterol 220 mg/dL (<200); HDL Cholesterol 42 mg/dL (40-60); Triglyceride 141 mg/dL (<150)
[2020-02-11 22:01] LABS: Uric Acid 5.1 mg/dL (3.5-7.2)
== END 2020-02-11 02:17 ==
PROVIDERS: PCP Emergency Medicine; Visit Provider Emergency Medicine
DX: E11.9 Type 2 diabetes mellitus without complications (principal); I10 Essential (primary) hypertension; M10.9 Gout, unspecified; I48.91 Unspecified atrial fibrillation; Z79.01 Long term (current) use of anticoagulants
CPT/HCPCS: 36415; 80061; 83036; 84550; 85610

== ENCOUNTER 2020-02-25 01:18 | Outpatient (CLI) | payer MEDICARE, OTHER, SELFPAY ==
[2020-02-25 10:52] LABS: INR 1.6 (0.9-1.1); Prothrombin Time 16.4 sec (9.3-11.0)
== END 2020-02-25 01:38 ==
PROVIDERS: PCP Emergency Medicine; Visit Provider Emergency Medicine
DX: I48.91 Unspecified atrial fibrillation (principal); Z79.01 Long term (current) use of anticoagulants
CPT/HCPCS: 36415; 85610

== ENCOUNTER 2020-03-03 02:45 | Outpatient (CLI) | payer MEDICARE, OTHER, SELFPAY ==
[2020-03-03 10:43] LABS: INR 1.5 (0.9-1.1); Prothrombin Time 15.1 sec (9.3-11.0)
== END 2020-03-03 03:05 ==
PROVIDERS: PCP Emergency Medicine; Visit Provider Emergency Medicine
DX: I48.91 Unspecified atrial fibrillation (principal); Z79.01 Long term (current) use of anticoagulants
CPT/HCPCS: 36415; 85610

== ENCOUNTER 2020-03-06 11:00 | Outpatient (RCR) | payer MEDICARE, OTHER, SELFPAY | END 2020-03-06 23:59 | disposition home or self-care (01) | LOC: CR 11:00 | PROVIDERS: PCP Emergency Medicine; Visit Provider Family Medicine | DX: Z95.3 Presence of xenogenic heart valve (principal); Z51.89 Encounter for other specified aftercare | CPT/HCPCS: S9472 ==

== ENCOUNTER 2020-03-10 02:34 | Outpatient (CLI) | payer MEDICARE, OTHER, SELFPAY ==
[2020-03-10 11:25] LABS: INR 1.8 (0.9-1.1); Prothrombin Time 18.1 sec (9.3-11.0)
== END 2020-03-10 02:54 ==
PROVIDERS: PCP Emergency Medicine; Visit Provider Emergency Medicine
DX: I48.91 Unspecified atrial fibrillation (principal); Z79.01 Long term (current) use of anticoagulants
CPT/HCPCS: 36415; 85610

== ENCOUNTER 2020-03-10 12:33 | Outpatient (REF) | payer MEDICARE, OTHER, SELFPAY ==
[2020-03-10 21:26] LABS: HGB 9.8 g/dL (13.5-17.5); MCH 30.3 pg (27.0-33.0); MCHC 31.6 % (32.0-36.0); MPV 11.5 fL (8.0-11.0); Platelet Count 256 10^3/uL (130-400); RBC 3.23 10^6/uL (4.36-5.78); RDW 16.3 % (11.8-14.1); RDW-SD 56.3 fL; WBC 5.81 10^3/uL (4.4-10.8)
[2020-03-13 08:59] LABS: PSA, Diagnostic <0.1 ng/mL (0.0-4.5)
== END 2020-03-10 12:53 ==
LOC: LBN 12:33
PROVIDERS: PCP Emergency Medicine; Visit Provider Emergency Medicine
DX: C61 Malignant neoplasm of prostate (principal); A49.8 Other bacterial infections of unspecified site
CPT/HCPCS: 85027; 84153

== ENCOUNTER 2020-03-17 02:00 | Outpatient (CLI) | payer MEDICARE, OTHER, SELFPAY ==
[2020-03-17 11:05] LABS: Prothrombin Time 21.2 sec (9.3-11.0)
[2020-03-17 11:12] LABS: INR 2.1 (0.9-1.1)
[2020-03-17 11:54] LABS: Iron 84 ug/dL (65-175); Total Iron Binding Capacity 323 ug/dL (250-450); Transferrin Sat 26 % (20-55)
[2020-03-17 12:20] LABS: Ferritin 115 ng/mL (26-388); Vitamin B12 388 pg/mL (193-986)
[2020-03-17 12:22] LABS: Folate > 20.0 ng/mL (8.6-20.0)
== END 2020-03-17 02:20 ==
PROVIDERS: PCP Emergency Medicine; Visit Provider Emergency Medicine
DX: D64.9 Anemia, unspecified (principal); I48.91 Unspecified atrial fibrillation; Z79.01 Long term (current) use of anticoagulants
CPT/HCPCS: 36415; 82607; 82728; 82746; 83540; 83550; 85610

== ENCOUNTER 2020-03-20 11:00 | Outpatient (RCR) | payer MEDICARE, OTHER, SELFPAY | END 2020-04-05 23:59 | disposition home or self-care (01) | LOC: CR 11:00 | PROVIDERS: PCP Emergency Medicine; Visit Provider Family Medicine | DX: Z95.4 Presence of other heart-valve replacement (principal); Z51.89 Encounter for other specified aftercare | CPT/HCPCS: S9472 ==

== ENCOUNTER → 2020-03-21 10:30 | Outpatient (BNVA) | payer MEDICARE, OTHER, SELFPAY | PROVIDERS: PCP Emergency Medicine; Referring Provider Emergency Medicine; Visit Provider Internal Medicine Cardiovascular Disease | DX: I34.0 Nonrheumatic mitral (valve) insufficiency (principal); I48.91 Unspecified atrial fibrillation; R01.1 Cardiac murmur, unspecified; I10 Essential (primary) hypertension | CPT/HCPCS: 99204; 99215 ==

== ENCOUNTER → 2020-03-27 11:26 | Outpatient (BNVA) | payer MEDICARE, OTHER, SELFPAY | PROVIDERS: PCP Emergency Medicine; Referring Provider Emergency Medicine; Visit Provider Surgery | DX: D64.9 Anemia, unspecified (principal); Z85.048 Personal history of other malignant neoplasm of rectum, rectosigmoid junction, and anus; I10 Essential (primary) hypertension; Z11.59 Encounter for screening for other viral diseases; I48.91 Unspecified atrial fibrillation; Z79.01 Long term (current) use of anticoagulants | CPT/HCPCS: 99214 ==

== ENCOUNTER 2020-03-31 02:17 | Outpatient (CLI) | payer MEDICARE, OTHER, SELFPAY ==
[2020-03-31 10:05] LABS: Prothrombin Time 19.6 sec (9.3-11.0)
[2020-03-31 10:48] LABS: Anion Gap 7.4 mmol/L (3-11); BUN 26 mg/dL (7-18); CO2 26.6 mmol/L (21.0-32.0); CREATININE 1.54 mg/dL (0.70-1.30); Calcium 8.9 mg/dL (8.5-10.1); Chloride 104 mmol/L (98-107); Estimated GFR 45.15 (mL/min/1.73m2); Glucose 109 mg/dL (74-106); Potassium 4.8 mmol/L (3.5-5.1); Sodium 138 mmol/L (136-145)
== END 2020-03-31 02:37 ==
PROVIDERS: Internal Medicine Cardiovascular Disease; PCP Emergency Medicine; Visit Provider Emergency Medicine
DX: I48.91 Unspecified atrial fibrillation (principal); Z79.01 Long term (current) use of anticoagulants
CPT/HCPCS: 36415; 80048; 85610

== ENCOUNTER 2020-04-07 01:45 | Outpatient (CLI) | payer MEDICARE, OTHER, SELFPAY | END 2020-04-07 02:05 | PROVIDERS: PCP Emergency Medicine; Visit Provider Emergency Medicine | DX: I48.91 Unspecified atrial fibrillation (principal) | CPT/HCPCS: 93225 ==

== ENCOUNTER 2020-04-12 15:57 | Emergency (ER) | payer MEDICARE, OTHER, SELFPAY ==
--- NOTE | 2020-04-12 16:03 | NUR.NOTE ---
Nursing Note: Per Debbie in Access the patient was entered in error. Alayna Lozano
== END 2020-04-12 16:03 | disposition other institution (70) ==
LOC: ER 16:00
PROVIDERS: Emergency Provider Emergency Medicine; PCP Emergency Medicine
DX: Z53.21 Procedure and treatment not carried out due to patient leaving prior to being seen by health care provider (principal)

== ENCOUNTER 2020-04-12 16:06 | Outpatient (CLI) | payer MEDICARE, OTHER, SELFPAY ==
--- NOTE | 2020-04-13 10:13 | W.HOLTRPT ---
Date of service: 04/13/20 Time of Service: 10:13 Holter Monitor Report Referring Provider:: Wally Indications:: AF Holter Monitor Note: This is a 48-hour Holter monitor ordered for concern of atrial fibrillation. ?Patient was in normal sinus rhythm for the majority of the recording. ?Patient had 2 episodes of supraventricular tachycardia with the longest lasting 5 beats. There were rare PACs. ?There were no episodes of ventricular tachycardia and occasional (3.6%) premature ventricular contractions. ?There were no episodes of atrial fibrillation, no pauses grade 3 seconds and no evidence of high degree heart block.
== END 2020-04-12 16:26 ==
PROVIDERS: PCP Emergency Medicine; Visit Provider Emergency Medicine
DX: I48.91 Unspecified atrial fibrillation (principal); I47.1 Supraventricular tachycardia; I49.3 Ventricular premature depolarization
CPT/HCPCS: 93226

== ENCOUNTER → 2020-04-26 08:54 | Outpatient (BNVA) | payer MEDICARE, OTHER, SELFPAY | PROVIDERS: PCP Emergency Medicine; Referring Provider Emergency Medicine; Visit Provider Nurse Practitioner Adult Health | DX: R41.3 Other amnesia (principal); I10 Essential (primary) hypertension | CPT/HCPCS: 99204; 99215 ==

== ENCOUNTER 2020-04-28 02:21 | Outpatient (CLI) | payer MEDICARE, OTHER, SELFPAY ==
[2020-04-28 09:56] LABS: Prothrombin Time 20.1 sec (9.3-11.0)
== END 2020-04-28 02:41 ==
PROVIDERS: PCP Emergency Medicine; Visit Provider Emergency Medicine
DX: I48.91 Unspecified atrial fibrillation (principal); Z79.01 Long term (current) use of anticoagulants
CPT/HCPCS: 36415; 85610

== ENCOUNTER 2020-05-05 02:16 | Outpatient (CLI) | payer MEDICARE, OTHER, SELFPAY ==
[2020-05-08 10:19] LABS: SARS-CoV-2 RNA Not Detected (NotDetected); SARS-CoV-2 RNA Source Nasal/Nares
== END 2020-05-05 02:36 ==
PROVIDERS: Surgery; PCP Emergency Medicine; Visit Provider Surgery
DX: Z11.59 Encounter for screening for other viral diseases (principal); Z01.818 Encounter for other preprocedural examination
CPT/HCPCS: U0003

== ENCOUNTER 2020-05-09 07:23 | Day surgery (SDC) | payer MEDICARE, OTHER, SELFPAY ==
[2020-05-09 07:25] VITALS: BP 131/78; PULSE 73; RESP 16; TEMP 36.3; O2SAT 97
[2020-05-09] MEDS: Lactated Ringers 1,000 ML 80 ML IV (07:54)
--- NOTE | 2020-05-09 09:01 | W.PM.HP.N ---
Date of service: 05/09/20 Time of Service: 09:01 Assessment and Plan Assessment and plan (1) Anemia: Status: Chronic Assessment and plan: I advised EGD and colonoscopy The procedure was described including the risks of perforation with need for surgery, bleeding, cardiorespiratory issues. The patient agrees to proceed. History of Present Illness Narrative: [place] [facility] [place] [place] - transanal resection and chemo-radiation. Last colonoscopy was in 2018. Has noted looser stool. Has 2-3 stools/day. Is able to control. Worse after drinking. No blood in stool. No abdominal pain. No PUD. After heart surgery was having some pain with swallowing, was started on cimetidine. No heartburn. Hgb has drifted down from 12.9 to 9.8 over the past few months. Is on Coumadin for atrial fibrillation. Mitral valve repair December 2019, has seen cardiology recently Prostate cancer 15 years ago Review of Systems All systems reviewed & are unremarkable except as noted in HPI and below PFSH Medical History Anemia Chronic anticoagulation GERD (gastroesophageal reflux disease) Gout HTN (hypertension) Hyperlipidemia Left sided lacunar infarction Malignant melanoma October 2015, anil tse, central parietal scalp Memory change Mitral insufficiency Valve repair at [facility] December 2019 Prostate cancer diagnosed 2002, s/p prostatectomy Pulmonary embolism September 2017. Treated with Eliquis. Rectal cancer 04/14/12 - transanal excision, chemotherapy, radiation, no evidence of metastatic disease, colonoscopy 10/31/15 showed only diverticulosis and hemorrhoids with f/u recommended in 2 years. Skin cancer, basal cell forehead, removed Squamous cell skin cancer right pre-auricular cheek, 08/2016 Surgical History Colonoscopy - MAC (04/14/12) Colonoscopy - MAC (10/31/15) H/O colonoscopy (03/10/18) Dr Jin, patient with personal history of rectal cancer. No abnormalities found with this colonoscopy, Dr Jin recommends repeat in 3 yrs. Prostatectomy Skin Cancer Removal (~06/2015) DR. CRONIN Transanal excision rectal cancer Family History Mother , age 78 Essential hypertension Cancer Father , age 80 Alzheimer's disease Sister No problems noted. Sister No problems noted. Brother Cancer Hypertension Son No problems noted. Son No problems noted. Son No problems noted. Daughter No problems noted. Maternal Grandfather Cancer Social History Smoking/Tobacco Use Status: Never Second Hand Exposure: Yes Smoking risk assessment performed?: Yes Alcohol Intake: current Alcohol Intake frequency: a few times a week Alcohol type: beer, wine and hard liquor Drug use: Rarely Substance use type: marijuana Caregiver/Support person: No Household members: spouse Housing: house Communication Needs: None Do you need help understanding health information?: Never Pets and animals: Yes Pets and animals: dog(s) Sexually active: No Do you think of yourself as: straight/heterosexual Current gender identity: male What is your relationship status?: How often do you talk on the phone with friends or family?: three or more times per week How often do you get together with friends or relatives?: once per week How often do you attend oriental orthodox or jainism services?: 1-3 times per year Do you belong to any clubs or organized social groups?: no Panel score (0-1 are the most socially isolated patients): 2 What type of physical activity do you participate in: decline to answer Duration: decline to answer Frequency: decline to answer Kyara/Episcopal: Gnosticism Special kyara needs: No Seatbelt use: always Drive intox or ride w/intox double bottom driver: No Do you feel safe at home: Yes Do you feel safe in your relationship?: Yes Meds Home Medications and Allergies Home Medications Medication Instructions Recorded Confirmed Type allopurinol 300 mg tablet 300 mg PO DAILY #90 tab 10/12/19 05/09/20 Rx cimetidine 200 mg tablet 200 mg PO BID #180 tab 11/05/19 05/09/20 Rx acetaminophen 500 mg tablet 1,000 mg PO Q6H PRN tab 01/12/20 05/09/20 History amlodipine 5 mg tablet 5 mg PO DAILY 01/12/20 05/09/20 History amoxicillin 500 mg capsule 2,000 mg PO PRN cap 01/12/20 05/09/20 History ferrous sulfate 325 mg (65 mg 325 mg PO DAILY 01/12/20 05/09/20 History iron) tablet folic acid 1 mg tablet 1 mg PO DAILY 01/12/20 05/09/20 History warfarin 5 mg tablet 5 mg PO DAILY #300 tab 01/17/20 05/05/20 Rx losartan 25 mg tablet 25 mg PO DAILY #60 tab 03/21/20 05/09/20 Rx metoprolol succinate 50 mg 50 mg PO DAILY #90 tab 03/21/20 05/09/20 Rx tablet,extended release 24 hr bisacodyl 5 mg tablet,delayed 5 mg PO ONCE #4 tab 03/27/20 04/26/20 Rx release polyethylene glycol 3350 17 17 g PO ONCE #238 g 03/27/20 04/26/20 Rx gram/dose oral powder Allergies Allergy/AdvReac Type Severity Reaction Status Date / Time No Known Allergies Allergy Verified 05/09/20 07:37 Exam Narrative Exam Narrative: Alert Lungs CTA Heart RRR Abdomen soft, non tender Results Last Vital Signs Temp 97.3 F L 05/09/20 07:25 Pulse 73 05/09/20 07:25 Resp 16 05/09/20 07:25 BP 131/78 05/09/20 07:25 Pulse Ox 97 05/09/20 07:25 COVID-19 Screening Have you,or household,traveled outside [place] in last 14 days?: No Had IN PERSON contact w/suspected or confirmed C-19 person: No
--- NOTE | 2020-05-09 09:11 | W.PM.DSUDISC ---
Discharge Plan Disposition Patient Disposition: HOME Condition: Good Discharge Details Reason For Visit: EGD, Colonoscopy Attending Provider: Cristal Perez Primary Care Provider: Alexis Lo Home Meds and New Rx's Prescriptions: Continued metoprolol succinate 50 mg tablet extended release 24 hr 50 mg PO DAILY Qty: 90 RF: 6 losartan 25 mg tablet 25 mg PO DAILY Qty: 60 RF: 6 amlodipine 5 mg tablet 5 mg PO DAILY RF: 0 ferrous sulfate 325 mg (65 mg iron) tablet 325 mg PO DAILY RF: 0 folic acid 1 mg tablet 1 mg PO DAILY RF: 0 amoxicillin 500 mg capsule 2,000 mg PO PRN RF: 0 acetaminophen [Tylenol Extra Strength] 500 mg tablet 1,000 mg PO Q6H PRNRF: 0 allopurinol 300 mg tablet 300 mg PO DAILY Qty: 90 RF: 4 cimetidine 200 mg tablet 200 mg PO BID Qty: 180 RF: 4 warfarin 5 mg tablet 5 mg PO DAILY Qty: 300 RF: 1 Discontinued bisacodyl [Dulcolax (bisacodyl)] 5 mg tablet,delayed release (DR/EC) 5 mg PO ONCE Qty: 4 RF: 0 polyethylene glycol 3350 17 gram/dose powder 17 g PO ONCE Qty: 238 RF: 0 Discharge Instructions Additional Instructions: Findings: Your stomach showed mild inflammation. Three polyps were removed from the colon. My office will contact you with biopsy results. Follow up: Plan for colonoscopy in 3 years. Please call if you develop: fevers >101.5 Nausea or Vomiting Abdominal pain that is not transient DAY SURGERY UNIT POST EGD/COLONOSCOPY INSTRUCTIONS 1. Because there will be medication in your system for the next 24 hours, you may feel a little sleepy. Your coordination will be affected. Therefore: a. Do not drive or operate dangerous equipment for 24 hours. b. Do not drink alcohol beverages for 24 hours (not even beer). c. Plan to go home and rest for the day. 2. Generally there are no restrictions on your activity after a day or so has gone by, but you may feel a bit fatigued for a few days. 3 After you arrive home you may have a light meal and return to a normal diet as you can tolerate it without feeling sick to your stomach. 4. After surgery, you may feel pain or discomfort. This should be only transient, but if it persists please contact your doctor. 5. If there are any questions regarding the findings of your procedure, please feel free to contact your doctor. 6. If you are unable to contact your doctor with a problem, contact the hospital at [phone]. 7. Continue all your regular medications unless directed otherwise. I understand the above instructions and have no questions. Signature of Patient or Responsible Adult Escort Date/Time Name of Responsible Adult Escort Signature of Nurse Date/Time Activity:: Activity as Tolerated Diet:: As Tolerated Discharge Orders Discharge Orders: Discharge Order (Routine); Ordered 05/09/20 Ordered By: Cristal Perez DS: Diagnosis Discharge Diagnosis (1) Anemia: Status: Chronic (2) Mild chronic gastritis: Status: Acute (3) Polyp of colon: Status: Acute (4) Diverticulosis: Status: Acute
--- NOTE | 2020-05-09 09:30 | BOWEL_PTH ---
PATIENT: MANI HUFFMAN LOC: [facility] U#:[id number] AGE/SX: 69/M ROOM: RE05/09/[address]: Cristal Perez MD : [id number] BED: DIS: 05/09/2020 SPEC #: [id number] RECD: 05/09/20 12:39 STATUS: FARRAH REQ #: [id number] KIM: 05/09/20 09:[address]: Cristal Perez DEPT: Surgical Specimen RECD BY: Kavya Cardoso ENTERED: 05/09/20 12:41 SP TYPE: Bowel OTHR DR: Alexis Lo DO Tissues: 1 - BIOPSY BOWEL 2 - STOMACH BIOPSY 3 - BIOPSY BOWEL 4 - BIOPSY BOWEL Procedures: GROSS AND MICRO LEVEL 4 Comments: [id number] ([id number] [facility] [place]#)
--- NOTE | 2020-05-09 10:37 | COLE_ITS ---
Date of service: 05/09/20 Time of Service: 10:37 Colonoscopy Report Date of procedure: 05/09/20 Pre-op diagnosis general: Anemia, history of rectal cancer Post-op diagnosis procedure note: other (Mild gastritis, diverticulosis, colon polyps) Procedure: EGD with duodenal and gastric biopsies Colonoscopy with cold forceps polypectomy and snare polypectomy Surgeon: Cristal Perez Anesthesia proc note operative: MAC Indications: This 69 year old man presents for evaluation of anemia. Most recent HgB was 9.8. He has no evidence of bleeding, is on Coumadin. His history is significant for transanal excision of a rectal cancer with chemo- radiation 5 years ago. Prior colonoscopy in 2018 showed diverticulosis. Procedure Description: The patient was placed in the left lateral position and propofol titrated to sedation. The endoscope was advanced into the esophagus under direct visualization. The scope was passed through the stomach and into the duodenum. There was no duodenitis or ulceration noted. Biopsies were taken from the second portion of the duodenum to evaluate for celiac disease. The stomach showed minimal inflammation in the antrum and body. Retroflexed view of the fundus and lesser curvature were normal. Routine biopsies were taken from the gastric antrum. The GE junction was inspected and showed no significant stricture, inflammation, masses or Barretts. The scope was slowly withdrawn with no other esophageal lesions found. Digital rectal examination revealed no abnormalities. The scope was advanced to the cecum without difficulty. The ileocecal valve and appendiceal orifice were clearly identified. The prep was good. The scope was slowly withdrawn over the course of greater than 6 minutes. He was noted to have diverticulosis throughout the colon which were fairly wide mouthed. No other abnormalities were seen in the ascending, transverse, descending colon. At 40 cm in the sigmoid colon a diminuitive polyp was removed with the cold forceps. A 1cm polyp just distal was removed with the snare and dragged out. A hemostatic clip was applied to the site. Retroflexed view in the rectum showed the prior excision site near the anal region with a diminuitive polyp or mucosal change from the scar. This was removed with the cold forcepts. There was some neovascularity here that could potentially be the source of blood loss. There was no proctitis noted. The patient tolerated the procedure well and was stable to recovery. Plan for colonoscopy in 3 years or sooner if symptoms indicate.
[2020-05-09 10:55] VITALS: BP 111/65; PULSE 58; RESP 16; TEMP 36.4; O2SAT 97
== END 2020-05-09 11:40 | disposition home or self-care (01) ==
PROVIDERS: PCP Emergency Medicine; Visit Provider Surgery
PROC: (CPT 45385; principal; 2020-05-09 09:15)
DX: D64.9 Anemia, unspecified (principal); K29.70 Gastritis, unspecified, without bleeding; K21.9 Gastro-esophageal reflux disease without esophagitis; K63.5 Polyp of colon; K57.30 Diverticulosis of large intestine without perforation or abscess without bleeding; Z85.048 Personal history of other malignant neoplasm of rectum, rectosigmoid junction, and anus; Z79.01 Long term (current) use of anticoagulants; Z86.711 Personal history of pulmonary embolism; Z86.73 Personal history of transient ischemic attack (TIA), and cerebral infarction without residual deficits; I10 Essential (primary) hypertension
CPT/HCPCS: 45385; 45380; 43239; 88305; NC; J2001; J2704

== ENCOUNTER 2020-05-17 11:47 | Outpatient (REF) | payer MEDICARE, OTHER, SELFPAY ==
[2020-05-17 14:36] LABS: Abs Immature Grans 0.03 10^3/uL (0.0-0.06); Absolute Basophil Count 0.03 10^3/uL (0.0-0.2); Absolute Eosinophil Count 0.45 10^3/uL (0.0-0.7); Absolute Lymphocyte Count 0.78 10^3/uL (1.2-3.4); Absolute Monocyte Count 0.56 10^3/uL (0.1-0.8); Absolute Neutrophil Count 5.95 10^3/uL (1.2-6.7); Basophils % 0.4; Eosinophils % 5.8; HGB 9.3 g/dL (13.5-17.5); Immature Grans % 0.4; MCH 32.1 pg (27.0-33.0); MCHC 33.2 % (32.0-36.0); MCV 96.6 fL (80-95); MPV 11.4 fL (8.0-11.0); Monocytes % 7.2; Neutrophils % 76.2; Nucleated RBC 0 %; Platelet Count 271 10^3/uL (130-400); RDW 14.8 % (11.8-14.1); RDW-SD 52.2 fL
[2020-05-17 16:06] LABS: Iron 79 ug/dL (65-175); Total Iron Binding Capacity 320 ug/dL (250-450); Transferrin Sat 25 % (20-55)
[2020-05-17 16:19] LABS: Ferritin 105 ng/mL (26-388)
[2020-05-26 17:52] LABS: Tissue Transglutaminase IgA <1.2 U/mL (<4.0)
[2020-05-26 17:54] LABS: IgA 261 mg/dL (61-356)
== END 2020-05-17 12:07 ==
LOC: LBN 11:47
PROVIDERS: PCP Emergency Medicine; Visit Provider Emergency Medicine
DX: D64.9 Anemia, unspecified (principal); A49.9 Bacterial infection, unspecified; M25.569 Pain in unspecified knee
CPT/HCPCS: 82784; 83516; 82728; 83540; 83550; 85025

== ENCOUNTER 2020-05-18 07:35 | Outpatient (CLI) | payer MEDICARE, OTHER, SELFPAY ==
[2020-05-19 15:04] LABS: SARS-CoV-2 RNA Source Nasal/Nares
[2020-05-19 15:05] LABS: SARS-CoV-2 RNA Not Detected (NotDetected)
== END 2020-05-18 07:55 ==
PROVIDERS: PCP Emergency Medicine; Visit Provider Nurse Practitioner
DX: Z11.59 Encounter for screening for other viral diseases (principal); Z01.818 Encounter for other preprocedural examination
CPT/HCPCS: U0003

== ENCOUNTER 2020-05-29 04:36 | Outpatient (CLI) | payer MEDICARE, OTHER, SELFPAY ==
[2020-05-29 11:09] LABS: INR 1.8 (0.9-1.1); Prothrombin Time 17.5 sec (9.3-11.0)
== END 2020-05-29 04:56 ==
PROVIDERS: PCP Emergency Medicine; Visit Provider Emergency Medicine
DX: I48.91 Unspecified atrial fibrillation (principal); Z79.01 Long term (current) use of anticoagulants
CPT/HCPCS: 36415; 85610

== ENCOUNTER 2020-06-05 03:39 | Outpatient (CLI) | payer MEDICARE, OTHER, SELFPAY ==
[2020-06-05 10:18] LABS: INR 2.2 (0.9-1.1); Prothrombin Time 21.3 sec (9.3-11.0)
== END 2020-06-05 03:59 ==
PROVIDERS: PCP Emergency Medicine; Visit Provider Emergency Medicine
DX: I48.91 Unspecified atrial fibrillation (principal); Z79.01 Long term (current) use of anticoagulants
CPT/HCPCS: 36415; 85610

== ENCOUNTER 2020-06-19 03:32 | Outpatient (CLI) | payer MEDICARE, OTHER, SELFPAY ==
[2020-06-19 10:16] LABS: Abs Immature Grans 0.02 10^3/uL (0.0-0.06); Absolute Basophil Count 0.04 10^3/uL (0.0-0.2); Absolute Eosinophil Count 0.55 10^3/uL (0.0-0.7); Absolute Lymphocyte Count 0.69 10^3/uL (1.2-3.4); Absolute Neutrophil Count 3.24 10^3/uL (1.2-6.7); Basophils % 0.8; Eosinophils % 11.4; HCT 29.7 % (40.0-50.0); HGB 9.5 g/dL (13.5-17.5); Immature Grans % 0.4; Lymphocytes % 14.3; MCH 31.8 pg (27.0-33.0); MCV 99.3 fL (80-95); MPV 11.3 fL (8.0-11.0); Monocytes % 6.2; Neutrophils % 66.9; Nucleated RBC 0 %; Platelet Count 230 10^3/uL (130-400); RBC 2.99 10^6/uL (4.36-5.78); Reticulocyte 6.7 % (0.5-2.4); WBC 4.84 10^3/uL (4.4-10.8)
[2020-06-19 10:51] LABS: LDH 1410 U/L (85-227)
[2020-06-19 11:11] LABS: INR 2.1 (0.9-1.1); Prothrombin Time 20.4 sec (9.3-11.0)
[2020-06-20 10:00] LABS: Haptoglobin <7 mg/dL (32-197)
== END 2020-06-19 03:52 ==
PROVIDERS: PCP Emergency Medicine; Visit Provider Internal Medicine
DX: D64.9 Anemia, unspecified (principal); I48.91 Unspecified atrial fibrillation; Z79.01 Long term (current) use of anticoagulants
CPT/HCPCS: 36415; 83010; 83615; 85025; 85045; 85610; 86880

== ENCOUNTER 2020-07-11 03:42 | Outpatient (CLI) | payer MEDICARE, OTHER, SELFPAY ==
[2020-07-11 13:07] LABS: Abs Immature Grans 0.03 10^3/uL (0.0-0.06); Absolute Basophil Count 0.04 10^3/uL (0.0-0.2); Absolute Eosinophil Count 0.38 10^3/uL (0.0-0.7); Absolute Monocyte Count 0.55 10^3/uL (0.1-0.8); Absolute Neutrophil Count 4.54 10^3/uL (1.2-6.7); Basophils % 0.6; Eosinophils % 5.9; HCT 30.4 % (40.0-50.0); Immature Grans % 0.5; MCH 32.3 pg (27.0-33.0); MCHC 32.9 % (32.0-36.0); MCV 98.1 fL (80-95); MPV 11.2 fL (8.0-11.0); Monocytes % 8.5; Neutrophils % 70.5; Nucleated RBC 0 %; Platelet Count 258 10^3/uL (130-400); RDW 15.6 % (11.8-14.1); RDW-SD 55.6 fL; Reticulocyte 6.3 % (0.5-2.4); WBC 6.44 10^3/uL (4.4-10.8)
[2020-07-11 13:18] LABS: INR 1.9 (0.9-1.1); Prothrombin Time 18.9 sec (9.3-11.0)
[2020-07-11 14:05] LABS: C-Reactive Protein 0.21 mg/dL (0.0-0.3)
[2020-07-11 14:08] LABS: LDH 1654 U/L (85-227)
[2020-07-11 14:26] LABS: ESR 18 mm/hr (1-20)
[2020-07-11 21:33] LABS: Rheumatoid Factor <8.6 IU/mL (<12.0)
[2020-07-12 09:05] LABS: HBs Antibody, Quant <3.1 mIU/mL (See Note); Hepatitis B Surface Ab Negative (See Note)
[2020-07-12 09:13] LABS: Hepatitis B Surface Ag Negative (Negative)
[2020-07-12 10:05] LABS: Hepatitis C Ab w Rflx HCV PCR Negative (Negative)
[2020-07-12 10:34] LABS: HIV-1/2 Ag & Ab Screen Negative (Negative)
[2020-07-12 12:21] LABS: Haptoglobin <7 mg/dL (32-197)
[2020-07-12 14:32] LABS: ANA Interpretation Negative (Negative)
== END 2020-07-11 04:02 ==
PROVIDERS: PCP Emergency Medicine; Visit Provider Emergency Medicine
DX: D64.9 Anemia, unspecified (principal); D59.10 Autoimmune hemolytic anemia, unspecified; I48.91 Unspecified atrial fibrillation; Z79.01 Long term (current) use of anticoagulants
CPT/HCPCS: 36415; 85652; 86706; 86803; 87340; 87389; 83010; 83615; 85025; 85045; 85610; 86038; 86140; 86431; 86880

== ENCOUNTER → 2020-07-14 10:59 | Outpatient (BNVA) | payer MEDICARE, OTHER, SELFPAY | PROVIDERS: PCP Emergency Medicine; Referring Provider Emergency Medicine; Visit Provider Internal Medicine Cardiovascular Disease | DX: I34.0 Nonrheumatic mitral (valve) insufficiency (principal); D58.9 Hereditary hemolytic anemia, unspecified; I47.2 Ventricular tachycardia; Z79.01 Long term (current) use of anticoagulants; Z86.711 Personal history of pulmonary embolism | CPT/HCPCS: 99214 ==

== ENCOUNTER 2020-08-17 02:58 | Outpatient (CLI) | payer MEDICARE, OTHER, SELFPAY ==
[2020-08-17 10:38] LABS: INR 1.4 (0.9-1.1); Prothrombin Time 14.1 sec (9.3-11.0)
== END 2020-08-17 02:59 | disposition home or self-care (01) ==
LOC: LBO 02:58
PROVIDERS: PCP Emergency Medicine; Visit Provider Emergency Medicine
DX: I48.91 Unspecified atrial fibrillation (principal); Z79.01 Long term (current) use of anticoagulants
CPT/HCPCS: 36415; 85610

== ENCOUNTER 2020-09-05 03:21 | Outpatient (CLI) | payer MEDICARE, OTHER, SELFPAY ==
[2020-09-05 13:33] LABS: INR 1.7 (0.9-1.1); Prothrombin Time 16.6 sec (9.3-11.0)
== END 2020-09-05 03:22 | disposition home or self-care (01) ==
LOC: LBO 03:21
PROVIDERS: PCP Emergency Medicine; Visit Provider Emergency Medicine
DX: I48.91 Unspecified atrial fibrillation (principal); Z79.01 Long term (current) use of anticoagulants
CPT/HCPCS: 36415; 85610

== ENCOUNTER 2020-09-25 03:48 | Outpatient (CLI) | payer MEDICARE, OTHER, SELFPAY ==
[2020-09-25 12:23] LABS: INR 1.8 (0.9-1.1); Prothrombin Time 18.3 sec (9.3-11.0)
== END 2020-09-25 03:49 | disposition home or self-care (01) ==
LOC: LBO 03:48
PROVIDERS: PCP Emergency Medicine; Visit Provider Emergency Medicine
DX: I48.91 Unspecified atrial fibrillation (principal); Z79.01 Long term (current) use of anticoagulants
CPT/HCPCS: 36415; 85610

== ENCOUNTER 2020-10-03 03:46 | Outpatient (CLI) | payer MEDICARE, OTHER, SELFPAY ==
[2020-10-03 12:18] LABS: INR 2.1 (0.9-1.1); Prothrombin Time 20.4 sec (9.3-11.0)
== END 2020-10-03 03:47 | disposition home or self-care (01) ==
LOC: LBO 03:47
PROVIDERS: PCP Emergency Medicine; Visit Provider Emergency Medicine
DX: I48.91 Unspecified atrial fibrillation (principal); Z79.01 Long term (current) use of anticoagulants
CPT/HCPCS: 36415; 85610

== ENCOUNTER 2020-10-17 03:38 | Outpatient (CLI) | payer MEDICARE, OTHER, SELFPAY ==
[2020-10-17 10:14] LABS: INR 2.2 (0.9-1.1)
== END 2020-10-17 03:39 | disposition home or self-care (01) ==
LOC: LBO 03:38
PROVIDERS: PCP Emergency Medicine; Visit Provider Emergency Medicine
DX: I48.0 Paroxysmal atrial fibrillation (principal); Z79.01 Long term (current) use of anticoagulants
CPT/HCPCS: 36415; 85610

== ENCOUNTER 2020-11-15 03:04 | Outpatient (CLI) | payer MEDICARE, OTHER, SELFPAY ==
[2020-11-15 09:55] LABS: INR 2.7 (0.9-1.1); Prothrombin Time 26.2 sec (9.3-11.0)
== END 2020-11-15 03:05 | disposition home or self-care (01) ==
LOC: LBO 03:04
PROVIDERS: PCP Emergency Medicine; Visit Provider Emergency Medicine
DX: I48.91 Unspecified atrial fibrillation (principal); Z79.01 Long term (current) use of anticoagulants
CPT/HCPCS: 36415; 85610

== ENCOUNTER → 2020-11-23 11:47 | Outpatient (BNVA) | payer MEDICARE, OTHER, SELFPAY | PROVIDERS: PCP Emergency Medicine; Referring Provider Emergency Medicine; Visit Provider Internal Medicine Cardiovascular Disease | DX: E87.1 Hypo-osmolality and hyponatremia (principal); I47.2 Ventricular tachycardia; R01.1 Cardiac murmur, unspecified | CPT/HCPCS: 99214 ==